=== PATIENT | male | born 1940 | race Caucasian/White ===

== ENCOUNTER 2016-11-21 15:19 | Outpatient (CLI) | payer MEDICARE | END 2016-11-21 15:20 | disposition home or self-care (01) | DX: E78.2 Mixed hyperlipidemia (principal); E11.9 Type 2 diabetes mellitus without complications; Z79.899 Other long term (current) drug therapy ==

== ENCOUNTER 2017-02-21 12:38 | Outpatient (CLI) | payer MEDICARE | END 2017-02-21 12:39 | disposition home or self-care (01) | LOC: LAB.R 12:38 | PROVIDERS: ATTEND Nurse Practitioner Primary Care | DX: I25.10 Atherosclerotic heart disease of native coronary artery without angina pectoris (principal) | CPT/HCPCS: 36415; 84484; 86140 ==

== ENCOUNTER 2017-02-26 07:03 | Outpatient (CLI) | payer MEDICARE ==
[2017-02-26 09:18] VITALS: BP 150/72
--- NOTE | 2017-02-26 11:28 | CARDIAC PROCEDURE NOTE ---
DATE OF SERVICE: 02/26/2017 00:00:00 PROCEDURE: Tereso protocol treadmill for echocardiographic left ventricular imaging. INDICATION: A 76-year-old male with recent exertional "gas" sensation in his chest. Known coronary di sease, 11 years post-complex stenting of the LAD and diagonal arteries. DESCRIPTION OF PROCEDURE: The patient was exercised in the standard fashion just shy of 9 minutes, we ll beyond predicted time of 6-1/2 minutes. He had sinus rhythm throughout the exercise with a rare PV C and an occasional PAC. During exercise, his EKG was noted to have some insignificant subtle T-wave changes. After a minute or 2 of recovery, he developed some ST segment depressions in the inferolater al leads, particularly in lead II. It was also during recovery after the echo images had been obtaine d that he developed this symptom of "gas" again. This resolved spontaneously and his EKG changes reso lved spontaneously. He did achieve just shy of his 85% maximum predicted heart rate and had a brisk b lood pressure response. IMPRESSION: Worrisome symptoms and EKG changes, both of which developed in recovery, in a patient who exercised well beyond predicted time, but who has a history of coronary disease. PLAN: We will await cardiac interpretation of his images; however, due to the constellation of his hi story, symptoms and EKG findings, a cardiac consult will be recommended. JOB #: [id number] EXT JOB #:[id number]
== END 2017-02-26 07:04 | disposition home or self-care (01) ==
LOC: DI 07:03
PROVIDERS: ATTEND Nurse Practitioner Primary Care
DX: I25.119 Atherosclerotic heart disease of native coronary artery with unspecified angina pectoris (principal); Z95.5 Presence of coronary angioplasty implant and graft
CPT/HCPCS: 93350

== ENCOUNTER 2017-07-21 08:00 | Outpatient (CLI) | payer MEDICARE ==
[2017-07-21 19:10] LABS: HEMOGLOBIN A1C 1.04 g/dL
== END 2017-07-21 08:01 | disposition home or self-care (01) ==
LOC: LAB.R 08:00
PROVIDERS: ATTEND Internal Medicine
DX: E11.9 Type 2 diabetes mellitus without complications (principal); Z79.899 Other long term (current) drug therapy
CPT/HCPCS: 83036

== ENCOUNTER 2017-11-24 08:15 | Outpatient (CLI) | payer MEDICARE ==
[2017-11-24 14:02] LABS: BASOPHILS % (AUTO) 0.7 %; EOSINOPHILS # (AUTO) 0.1 10^3/uL (0.0-0.7); EOSINOPHILS % (AUTO) 1.9 %; HGB - HEMOGLOBIN 14.4 g/dL (14.0-18.0); LYMPHOCYTES # (AUTO) 1.7 10^3/uL (1.5-3.5); LYMPHOCYTES % (AUTO) 33.7 %; MEAN CORPUSCULAR HEMOGLOBIN 29.9 pg (27.0-31.0); MEAN CORPUSCULAR VOLUME 87.9 fL (80.0-94.0); MEAN PLATELET VOLUME 8.2 fL (7.4-11.4); MONOCYTES # (AUTO) 0.4 10^3/uL (0.0-1.0); MONOCYTES % (AUTO) 7.9 %; NEUTROPHILS # (AUTO) 2.8 10^3/uL (1.5-6.6); NEUTROPHILS % (AUTO) 55.8 %; PLT - PLATELET COUNT 198 10^3/uL (130-450); RED BLOOD COUNT 4.81 10^6/uL (4.70-6.10); RED CELL DISTRIBUTION WIDTH 13.1 % (12.0-15.0); WHITE BLOOD COUNT 5.1 x10^3/uL (4.8-10.8)
[2017-11-24 14:21] LABS: ALBUMIN 4.3 g/dL (3.2-5.5); ALBUMIN/GLOBULIN RATIO 1.4 (1.0-2.2); ALKALINE PHOSPHATASE 46 IU/L (42-121); ALT ALANINE AMINOTRANSFERASE 20 IU/L (10-60); AST ASPARTATE AMINOTRANSFERASE 23 IU/L (10-42); BILIRUBIN,TOTAL 0.7 mg/dL (0.2-1.0); BUN - BLOOD UREA NITROGEN 25 mg/dL (6-20); CALCIUM 8.6 mg/dL (8.5-10.3); CARBON DIOXIDE - CO2 23 mmol/L (21-32); CHLORIDE 102 mmol/L (101-111); CHOL/HDL RATIO 4.7 (<5.0); CHOLESTEROL 164 mg/dL; CREATININE 1.1 mg/dL (0.6-1.2); GFR - MDRD 65 (>89); GLUCOSE 172 mg/dL (70-100); HDL CHOLESTEROL 35 mg/dL; LDL CHOLESTEROL,CALCULATED 76 mg/dL; LDL/HDL RATIO 2.2 (<3.6); SODIUM 134 mmol/L (135-145); TOTAL PROTEIN 7.3 g/dL (6.7-8.2); VLDL CHOLESTEROL 53 mg/dL
[2017-11-24 14:25] LABS: HB2 TOTAL 15.9 g/dL; HEMOGLOBIN A1C 1.11 g/dL; HEMOGLOBIN A1C % 8.5 % (4.6-6.2)
== END 2017-11-24 08:16 | disposition home or self-care (01) ==
LOC: LAB.R 08:15
PROVIDERS: ATTEND Internal Medicine
DX: E11.9 Type 2 diabetes mellitus without complications (principal); I25.10 Atherosclerotic heart disease of native coronary artery without angina pectoris; I10 Essential (primary) hypertension; Z79.899 Other long term (current) drug therapy
CPT/HCPCS: 80053; 80061; 83036; 83721; 85025

== ENCOUNTER 2018-03-18 11:07 | Outpatient (CLI) | payer MEDICARE ==
[2018-03-18 14:06] LABS: HEMOGLOBIN A1C 0.92 g/dL; HEMOGLOBIN A1C % 7.8 % (4.6-6.2)
== END 2018-03-18 11:08 | disposition home or self-care (01) ==
LOC: LAB.R 11:07
PROVIDERS: ATTEND Internal Medicine
DX: E11.9 Type 2 diabetes mellitus without complications (principal)
CPT/HCPCS: 83036

== ENCOUNTER 2018-05-10 02:15 | Emergency (ER) | payer MEDICARE ==
--- NOTE | 2018-05-10 02:25 | ED Physician Documentation ---
PD HPI URI - Stated complaint Stated Complaint: SWOLLEN THROAT - Chief complaint Chief Complaint: Heent - History obtained from History obtained from: Patient - History of Present Illness Timing - onset: How many hours ago (1), Today Timing duration: Hours (1) Timing details: Abrupt onset (awoke with feeling of swelling in throat and trouble breathing. Had some hoarseness of voice. It is easing some enroute. No prior similar. No new foods nor meds.) Associated symptoms: Other (no itching nor rash/hives). No: Fever, Sore throat , Dry cough, NVD Contributing factors: No: Sick contact, Travel, Immunocompromised Similar symptoms before: Has not had sx before Recently seen: Not recently seen Review of Systems Constitutional: denies: Fever Nose: denies: Rhinorrhea / runny nose, Congestion Throat: reports: Sore throat Cardiac: denies: Chest pain / pressure, Palpitations Respiratory: reports: Dyspnea. denies: Cough, Wheezing GI: denies: Nausea, Vomiting, Diarrhea Skin: denies: Rash, Lesions PD PAST MEDICAL HISTORY - Past Medical History Cardiovascular: Hypertension, High cholesterol, Coronary artery disease, Atrial fibrillation Endocrine/Autoimmune: Type 2 diabetes GI: GERD HEENT: Chronic hearing loss Musculoskeletal: Other - Past Surgical History Past Surgical History: Yes Ortho: Carpal Tunnel surgery Cardiovascular: Coronary stent Neuro: Other - Present Medications Home Medications: Ambulatory Orders Medication Instructions Recorded Confirmed Amiloride/Hydrochlorothiazide 0.5 tab PO DAILY 03/14/14 04/26/16 [Amiloride HCl-Hctz 5-50 mg Tab] Aspirin [Aspir 81] 81 mg PO DAILY 03/14/14 04/26/16 Lisinopril 5 mg PO BID 03/14/14 04/26/16 Metformin HCl 1,000 mg PO BID 03/14/14 04/26/16 Metoprolol Succinate [Toprol Xl] 25 mg PO BID 03/14/14 04/26/16 Omeprazole 20 mg PO DAILY 03/14/14 04/26/16 Rosuvastatin Calcium [Crestor] 5 mg PO 03/14/14 03/14/14 amLODIPine [Norvasc] 0 ORAL DAILY 04/26/16 Cetirizine [ZyrTEC] 10 mg PO DAILY #20 tablet 05/10/18 Dexamethasone [Decadron] 4 mg PO DAILY #5 tablet 05/10/18 Glimepiride 2 tab PO DAILY 05/10/18 05/10/18 Isosorbide Mononitrate [Isosorbide 30 mg PO DAILY 05/10/18 05/10/18 Mononitrate ER] - Allergies Allergies/Adverse Reactions: Allergies Allergy/AdvReac Type Severity Reaction Status Date / Time erythromycin base Allergy Intermediate Edema Verified 05/10/18 02:22 [Erythromycin Base] Sulfa (Sulfonamide Allergy Mild Nausea Verified 05/10/18 02:22 Antibiotics) - Social History Does the pt smoke?: No Smoking Status: Never smoker Does the pt drink ETOH?: No Does the pt have substance abuse?: No - Immunizations Immunizations are current?: No Immunizations: TDAP >10years/unknown - POLST Patient has POLST: Yes PD ED PE NORMAL - Vitals Vital signs reviewed: Yes - General General: Alert and oriented X 3, No acute distress, Well developed/nourished - HEENT HEENT: Ears normal. No: Pharynx benign (uvular edema without exudate. No adenopathy. ) - Neck Neck: Supple, no meningeal sign, No adenopathy - Cardiac Cardiac: RRR, No murmur - Respiratory Respiratory: Clear bilaterally - Abdomen Abdomen: Soft, Non tender - Derm Derm: Normal color, Warm and dry, No rash - Extremities Extremities: No tenderness to palpate, Normal ROM s pain, No edema, No calf tenderness / cord - Neuro Neuro: Alert and oriented X 3, No motor deficit, Normal speech Results - Vitals Vitals: Vital Signs - 24 hr 05/10/18 05/10/18 02:15 04:20 Temperature 36.9 C 36.1 C L Heart Rate 61 60 Respiratory 16 16 Rate Blood Pressure 173/88 H 165/77 H O2 Saturation 97 97 Oxygen O2 Source Room air - Labs Labs: Laboratory Tests 05/10/18 02:46 Group A Strep Rapid Negative PD MEDICAL DECISION MAKING - ED course Complexity details: re-evaluated patient (he had had decreasing symptoms on arrival to ER and continued to lessen, thus I did not stress his system with epi.), considered differential (some angioedema without obvious cause. He is on JT-I. ), d/w patient - Sepsis Event Vital Signs: Vital Signs - 24 hr 09/02/18 09/02/18 02:15 04:20 Temperature 36.9 C 36.1 C L Heart Rate 61 60 Respiratory 16 16 Rate Blood Pressure 173/88 H 165/77 H O2 Saturation 97 97 Oxygen O2 Source Room air Departure - Departure Disposition: 01 Home, Self Care Clinical Impression: Angioedema Qualifiers: Encounter type: initial encounter Qualified Code(s): T78.3XXA - Angioneurotic edema, initial encounter Condition: Stable Record reviewed to determine appropriate education?: Yes Instructions: ED Angioedema Follow-Up: Adis Galvez MD [Primary Care Provider] - Prescriptions: Cetirizine [ZyrTEC] 10 mg PO DAILY #20 tablet Dexamethasone [Decadron] 4 mg PO DAILY #5 tablet Comments: Use Decadron steroid daily for the next 5 days. Cetirizine antihistamine daily for the next week. It is unclear the cause of this and given that you do take lisinopril, this can be associated with the swelling that you have regardless of the duration that you have been on the medicine. Therefore would say to stop your lisinopril until you discuss further with your primary care. Recheck if not continuing to be improving over the next several days. Discharge Date/Time: 05/10/18 04:22
[2018-05-10] MEDS ORDERED: diphenhydrAMINE ELIXIR 25 MG/10 ML UDC PO STA (02:46)
[2018-05-10] MEDS ORDERED: DEXAMETHASONE 10 MG/ML VIAL PO STA (02:46)
[2018-05-10 04:22] VITALS: BP 165/77
== END 2018-05-10 04:22 | disposition home or self-care (01) ==
LOC: ED 02:15
DX: T78.3XXA Angioneurotic edema, initial encounter (principal); I10 Essential (primary) hypertension; I25.10 Atherosclerotic heart disease of native coronary artery without angina pectoris; E11.9 Type 2 diabetes mellitus without complications; E78.00 Pure hypercholesterolemia, unspecified; Z95.5 Presence of coronary angioplasty implant and graft; Z79.82 Long term (current) use of aspirin
CPT/HCPCS: 87070; 87430; 99283; A9270

== ENCOUNTER → 2018-07-06 | Outpatient (CLI) | payer MEDICARE ==
[2018-07-06 20:16] LABS: HB2 TOTAL 15.6 g/dL; HEMOGLOBIN A1C 1.04 g/dL; HEMOGLOBIN A1C % 8.3 % (4.6-6.2)
== END ==
LOC: LAB.R 13:40
PROVIDERS: ATTEND Internal Medicine
DX: E11.9 Type 2 diabetes mellitus without complications (principal)
CPT/HCPCS: 83036

== ENCOUNTER 2018-10-19 08:00 | Outpatient (CLI) | payer MEDICARE ==
[2018-10-19 13:41] LABS: HB2 TOTAL 16.8 g/dL; HEMOGLOBIN A1C 1.25 g/dL
== END 2018-10-19 23:59 | disposition home or self-care (01) ==
LOC: LAB.R 08:00
PROVIDERS: ATTEND Internal Medicine
DX: E11.9 Type 2 diabetes mellitus without complications (principal)
CPT/HCPCS: 83036

== ENCOUNTER 2018-12-15 10:09 | Outpatient (CLI) | payer MEDICARE ==
[2018-12-15 10:36] LABS: CREATININE 1.1 mg/dL (0.6-1.2)
[2018-12-15 10:39] LABS: HB2 TOTAL 15.9 g/dL; HEMOGLOBIN A1C 1.01 g/dL
== END 2018-12-15 10:10 | disposition home or self-care (01) ==
LOC: LAB 10:09
PROVIDERS: ATTEND Internal Medicine
DX: E11.65 Type 2 diabetes mellitus with hyperglycemia (principal)
CPT/HCPCS: 36415; 80048; 83036

== ENCOUNTER 2019-04-13 11:35 | Outpatient (CLI) | payer MEDICARE ==
[2019-04-13 12:17] LABS: CALCIUM 9.2 mg/dL (8.5-10.3); CREATININE 1.1 mg/dL (0.6-1.2)
[2019-04-13 12:27] LABS: HB2 TOTAL 15.6 g/dL; HEMOGLOBIN A1C 1.02 g/dL; HEMOGLOBIN A1C % 8.1 % (4.6-6.2)
== END 2019-04-13 11:36 | disposition home or self-care (01) ==
LOC: LAB 11:35
PROVIDERS: ATTEND Family Medicine
DX: I10 Essential (primary) hypertension (principal); E11.9 Type 2 diabetes mellitus without complications
CPT/HCPCS: 36415; 80048; 83036

== ENCOUNTER 2019-08-11 08:03 | Outpatient (CLI) | payer MEDICARE ==
[2019-08-11 12:16] LABS: BASOPHILS % (AUTO) 0.3 %; EOSINOPHILS # (AUTO) 0.1 10^3/uL (0.0-0.7); EOSINOPHILS % (AUTO) 1.7 %; HGB - HEMOGLOBIN 15.1 g/dL (14.0-18.0); LYMPHOCYTES # (AUTO) 2.2 10^3/uL (1.5-3.5); LYMPHOCYTES % (AUTO) 31.6 %; MEAN CORPUSCULAR VOLUME 88.1 fL (80.0-94.0); MEAN PLATELET VOLUME 10.6 fL (7.4-11.4); MONOCYTES # (AUTO) 0.5 10^3/uL (0.0-1.0); MONOCYTES % (AUTO) 7.5 %; NEUTROPHILS # (AUTO) 4.2 10^3/uL (1.5-6.6); NEUTROPHILS % (AUTO) 58.6 %; PLT - PLATELET COUNT 201 10^3/uL (130-450); RED CELL DISTRIBUTION WIDTH 12.9 % (12.0-15.0); WHITE BLOOD COUNT 7.1 x10^3/uL (4.8-10.8)
[2019-08-11 12:44] LABS: ALBUMIN 4.6 g/dL (3.2-5.5); ALBUMIN/GLOBULIN RATIO 1.5 (1.0-2.2); ALKALINE PHOSPHATASE 46 IU/L (42-121); ALT ALANINE AMINOTRANSFERASE 22 IU/L (10-60); AST ASPARTATE AMINOTRANSFERASE 27 IU/L (10-42); BILIRUBIN,TOTAL 0.8 mg/dL (0.2-1.0); BUN - BLOOD UREA NITROGEN 24 mg/dL (6-20); CALCIUM 8.9 mg/dL (8.5-10.3); CARBON DIOXIDE - CO2 24 mmol/L (21-32); CHLORIDE 105 mmol/L (101-111); CHOL/HDL RATIO 3.4 (<5.0); CHOLESTEROL 140 mg/dL; GFR - MDRD 72 (>89); GLUCOSE 157 mg/dL (70-100); HDL CHOLESTEROL 41 mg/dL; LDL CHOLESTEROL,CALCULATED 67 mg/dL; LDL/HDL RATIO 1.6 (<3.6); SODIUM 138 mmol/L (135-145); TOTAL PROTEIN 7.7 g/dL (6.7-8.2); VLDL CHOLESTEROL 32 mg/dL
[2019-08-11 12:50] LABS: HB2 TOTAL 15.6 g/dL; HEMOGLOBIN A1C 0.88 g/dL; HEMOGLOBIN A1C % 7.3 % (4.6-6.2)
== END 2019-08-11 23:59 ==
LOC: LAB.N 08:03
PROVIDERS: ATTEND Family Medicine
DX: E78.5 Hyperlipidemia, unspecified (principal); I10 Essential (primary) hypertension; I25.10 Atherosclerotic heart disease of native coronary artery without angina pectoris; K21.9 Gastro-esophageal reflux disease without esophagitis; E11.65 Type 2 diabetes mellitus with hyperglycemia
CPT/HCPCS: 36415; 80053; 80061; 83036; 83721; 84443; 85025

== ENCOUNTER 2020-01-05 10:35 | Outpatient (CLI) | payer MEDICARE ==
[2020-01-05 13:38] LABS: BASOPHILS % (AUTO) 0.4 %; EOSINOPHILS # (AUTO) 0.2 10^3/uL (0.0-0.7); EOSINOPHILS % (AUTO) 2.5 %; HGB - HEMOGLOBIN 14.7 g/dL (14.0-18.0); LYMPHOCYTES # (AUTO) 2.6 10^3/uL (1.5-3.5); LYMPHOCYTES % (AUTO) 33.6 %; MEAN CORPUSCULAR HEMOGLOBIN 30.9 pg (27.0-31.0); MEAN CORPUSCULAR HGB CONC 34.2 g/dL (32.0-36.0); MEAN CORPUSCULAR VOLUME 90.5 fL (80.0-94.0); MEAN PLATELET VOLUME 10.5 fL (7.4-11.4); MONOCYTES # (AUTO) 0.8 10^3/uL (0.0-1.0); MONOCYTES % (AUTO) 9.7 %; NEUTROPHILS # (AUTO) 4.1 10^3/uL (1.5-6.6); NEUTROPHILS % (AUTO) 53.4 %; PLT - PLATELET COUNT 207 10^3/uL (130-450); RED BLOOD COUNT 4.75 10^6/uL (4.70-6.10); RED CELL DISTRIBUTION WIDTH 12.4 % (12.0-15.0); WHITE BLOOD COUNT 7.7 x10^3/uL (4.8-10.8)
[2020-01-05 14:10] LABS: ALBUMIN 4.3 g/dL (3.2-5.5); ALBUMIN/GLOBULIN RATIO 1.4 (1.0-2.2); BILIRUBIN,TOTAL 0.6 mg/dL (0.2-1.0); CALCIUM 8.9 mg/dL (8.5-10.3); CREATININE 1.2 mg/dL (0.6-1.2); TOTAL PROTEIN 7.4 g/dL (6.7-8.2)
[2020-01-05 14:15] LABS: HB2 TOTAL 14.9 g/dL; HEMOGLOBIN A1C 0.87 g/dL; HEMOGLOBIN A1C % 7.5 % (4.6-6.2)
== END 2020-01-05 23:59 | disposition home or self-care (01) ==
LOC: LAB.WCP 10:35
PROVIDERS: ATTEND Family Medicine
DX: K31.84 Gastroparesis (principal); K21.9 Gastro-esophageal reflux disease without esophagitis; E11.65 Type 2 diabetes mellitus with hyperglycemia; I10 Essential (primary) hypertension
CPT/HCPCS: 36415; 80053; 83036; 85025

== ENCOUNTER 2020-01-07 06:44 | Outpatient (CLI) | payer MEDICARE ==
--- NOTE | 2020-01-07 09:49 | Ultrasound Report ---
Reason: GASTROPARESIS, GERD, DM Procedure Date: 01/07/2020 Accession Number: [id number] / [id number] Procedure: US - Abdomen Limited CPT Code: Final Report FULL RESULT: EXAM: ABDOMEN ULTRASOUND LIMITED, RUQ EXAM DATE: 01/07/2020 07:25 AM. CLINICAL HISTORY: Gastroparesis, gastroesophageal reflux disease, diabetes. COMPARISON: None. TECHNIQUE: Real-time scanning was performed with static images obtained. FINDINGS: Liver: The liver is moderately echogenic diffusely with some focal fatty sparing near the gallbladder fossa. No focal masses, enlargement or abnormal blood flow. The right lobe measures 17.2 cm. Main portal vein flow: Hepatopetal. Gallbladder: Normal. No stones, wall thickening, or sonographic Garland's sign. Biliary System: CBD measures 4 mm. No intrahepatic or extrahepatic ductal dilatation. Other: The pancreas was obscured by bowel gas. No ascites. The right kidney measures 10.9 cm and shows no hydronephrosis or calculi. IMPRESSION: 1. Moderately fatty infiltrated liver. 2. Normal gallbladder. RADIA
== END 2020-01-07 06:45 | disposition home or self-care (01) ==
LOC: DI 06:44
PROVIDERS: ATTEND Family Medicine
DX: K76.0 Fatty (change of) liver, not elsewhere classified (principal)
CPT/HCPCS: 76705

== ENCOUNTER 2020-05-17 08:00 | Outpatient (CLI) | payer MEDICARE ==
[2020-05-17 18:26] LABS: CALCIUM 9.1 mg/dL (8.5-10.3); CREATININE 1.2 mg/dL (0.6-1.2)
[2020-05-17 20:14] LABS: HEMOGLOBIN A1c% 7.9 % (4.27-6.07)
== END 2020-05-17 23:59 | disposition home or self-care (01) ==
LOC: LAB.WCP 08:00
PROVIDERS: ATTEND Family Medicine
DX: E11.65 Type 2 diabetes mellitus with hyperglycemia (principal); I10 Essential (primary) hypertension
CPT/HCPCS: 36415; 80048; 83036

== ENCOUNTER 2020-09-29 08:00 | Outpatient (CLI) | payer MEDICARE | END 2020-09-29 23:59 | disposition home or self-care (01) | LOC: LAB.R 08:00 | PROVIDERS: ATTEND Family Medicine | DX: R50.9 Fever, unspecified (principal); Z20.822 Contact with and (suspected) exposure to COVID-19 | CPT/HCPCS: 87275; 87276; U0004 ==

== ENCOUNTER 2020-09-29 14:43 | Outpatient (CLI) | payer MEDICARE | END 2020-09-29 14:44 | disposition home or self-care (01) | LOC: COV 14:43 | PROVIDERS: ATTEND Family Medicine | DX: R50.9 Fever, unspecified (principal); R05 Cough; M79.10 Myalgia, unspecified site; R53.83 Other fatigue; R09.81 Nasal congestion; Z20.822 Contact with and (suspected) exposure to COVID-19 ==

== ENCOUNTER 2020-09-30 08:00 | Outpatient (CLI) | payer MEDICARE | END 2020-09-30 08:01 | disposition home or self-care (01) | LOC: LAB.R 08:00 | PROVIDERS: ATTEND Family Medicine | DX: R50.9 Fever, unspecified (principal) | CPT/HCPCS: 87086 ==

== ENCOUNTER 2020-10-03 08:19 | Inpatient (IN) | payer MEDICARE ==
[2020-10-03] MEDS ORDERED: SODIUM CHLORIDE 0.9% 1,000 ML IV STA ×2 (08:50→09:50)
--- NOTE | 2020-10-03 08:53 | ED Physician Documentation ---
PD HPI URI - Stated complaint Stated Complaint: SOA,FEVER, -COVID OF YESTERDAY - Chief complaint Chief Complaint: Resp - History obtained from History obtained from: Patient - History of Present Illness Timing - onset: How many months ago (1) Timing duration: Months (1) Timing details: Gradual onset, Still present Associated symptoms: Fever, Nasal congestion, Productive cough. No: Bilateral edema, Unilateral edema Contributing factors: No: Sick contact, Travel, COPD / asthma Improves by: Rest Worsened by: Activity, Breathing Similar symptoms before: Has not had sx before Recently seen: Surgery - Additional information Additional information: 80 y/o male with replacement of stents one month ago has developed dyspena shortly after the procedure he believes started with Brelintzia. He has subsequentlly developed a cough about one week ago and has started to bring up some blood about 3 days ago. He has developed a fever about one week ago and he has had 2 negative covid tests done this week. Review of Systems Constitutional: reports: Fever Eyes: denies: Decreased vision Ears: denies: Ear pain Nose: reports: Congestion. denies: Rhinorrhea / runny nose Throat: denies: Sore throat Cardiac: denies: Chest pain / pressure, Palpitations, Pedal edema, Calf pain Respiratory: reports: Dyspnea, Cough, Hemoptysis. denies: Wheezing GI: denies: Abdominal Pain, Nausea, Vomiting, Constipation, Diarrhea : denies: Dysuria, Frequency Skin: denies: Rash Musculoskeletal: denies: Neck pain, Back pain, Extremity pain Neurologic: denies: Generalized weakness, Focal weakness, Numbness PD PAST MEDICAL HISTORY - Past Medical History Cardiovascular: Hypertension, High cholesterol, Coronary artery disease, Atrial fibrillation Endocrine/Autoimmune: Type 2 diabetes GI: GERD HEENT: Chronic hearing loss Musculoskeletal: Osteoarthritis, Other - Past Surgical History Past Surgical History: Yes Ortho: Carpal Tunnel surgery Cardiovascular: Coronary stent Neuro: Other - Present Medications Home Medications: Ambulatory Orders Medication Instructions Recorded Confirmed Aspirin [Aspir 81] 81 mg PO DAILY 03/14/14 11/06/18 Metformin HCl 500 mg PO BID 03/14/14 11/06/18 Omeprazole 40 mg PO DAILY 03/14/14 11/06/18 Rosuvastatin Calcium [Crestor] 5 mg PO UD 03/14/14 11/06/18 amLODIPine [Norvasc] 2.5 mg ORAL DAILY 04/26/16 11/06/18 Glimepiride 2 tab DAILY 05/10/18 11/06/18 Isosorbide Mononitrate [Isosorbide 30 mg PO DAILY 05/10/18 11/06/18 Mononitrate ER] Amiloride HCl 2.5 mg PO DAILY 11/06/18 11/06/18 Cholecalciferol (Vitamin D3) 1,000 unit PO DAILY 11/06/18 11/06/18 [Vitamin D3] Flaxseed Oil 1,000 mg PO DAILY 11/06/18 11/06/18 Fluticasone [Flonase] 1 sprays ALEN BID 11/06/18 11/06/18 Loratadine [Claritin] 10 mg PO DAILY 11/06/18 11/06/18 Metoprolol Tartrate 25 mg PO BID 11/06/18 11/06/18 Multivitamin [Theragran] 1 each PO DAILY 11/06/18 11/06/18 - Allergies Allergies/Adverse Reactions: Allergies Allergy/AdvReac Type Severity Reaction Status Date / Time JT Inhibitors Allergy Severe Unknown Verified 10/03/20 08:31 amoxicillin [From Augmentin] Allergy Severe Unknown Verified 10/03/20 08:31 clavulanic acid Allergy Severe Unknown Verified 10/03/20 08:31 [From Augmentin] citalopram Allergy Intermediate Unknown Verified 10/03/20 08:31 erythromycin base Allergy Intermediate Edema Verified 10/03/20 08:31 [Erythromycin Base] hydrochlorothiazide Allergy Mild Unknown Verified 10/03/20 08:31 Lmavdts-Xxt-Eqp Reductase Allergy Mild Unknown Verified 10/03/20 08:31 Inhibitor Sulfa (Sulfonamide Allergy Mild Nausea Verified 10/03/20 08:31 Antibiotics) - Social History Does the pt smoke?: No Smoking Status: Never smoker Does the pt drink ETOH?: No Does the pt have substance abuse?: No - Immunizations Immunizations are current?: No Immunizations: TDAP >10years/unknown - POLST Patient has POLST: Yes PD ED PE NORMAL - Vitals Vital signs reviewed: Yes (hypertension) - General General: Alert and oriented X 3, No acute distress, Well developed/nourished - HEENT HEENT: Atraumatic, PERRL, EOMI, Ears normal, Other (dry mucous membranes ) - Neck Neck: Supple, no meningeal sign, No bony TTP - Cardiac Cardiac: No murmur, Other (tachy to 100) - Respiratory Respiratory: Other (tachypneic at rest without wheeze or rhonchi appreciated. ) - Abdomen Abdomen: Soft, Non tender, Other (protruberant ) - Back Back: No CVA TTP, No spinal TTP - Derm Derm: Normal color, Warm and dry, No rash - Extremities Extremities: No deformity, No edema - Neuro Neuro: Alert and oriented X 3, date night caregiver 2-12 intact, No motor deficit, No sensory deficit, Normal speech Eye Opening: Spontaneous Motor: Obeys Commands Verbal: Oriented GCS Score: 15 - Psych Psych: Normal mood, Normal affect Results - Vitals Vitals: Vital Signs - 24 hr 10/03/20 10/03/20 10/03/20 08:22 10:30 11:27 Temperature 37.1 C Heart Rate 97 103 H 103 H Respiratory 22 27 H 17 Rate Blood Pressure 141/80 H 154/91 H 143/78 H O2 Saturation 93 96 94 Oxygen O2 Source Room air - EKG (time done) 900 Rate: Rate (enter#) (93) Rhythm: LAE, Other (PVC's) Intervals: Prolonged MN (borderline) QRS: LVH (with strain) Ischemia: Q waves (inferior ) Compare to prior EKG: Old EKG unavailable Computer interpretation: Agree with computer 1035 Rate: Rate (enter#) (111) Rhythm: Sinus tachycardia, LAE [place]: LAD QRS: LVH (with strain) Compare to prior EKG: Changed from prior EKG (SPT done earlier today the lead placement has changed slightly ) Computer interpretation: Agree with computer - Labs Labs: Laboratory Tests 10/03/20 10/03/20 10/03/20 08:50 08:50 08:50 WBC 10.6 RBC 4.77 Hgb 14.0 Hct 42.1 MCV 88.3 MCH 29.4 MCHC 33.3 RDW 13.2 Plt Count 194 MPV 9.9 Neut # (Auto) 9.2 H Lymph # (Auto) 0.7 L Dickson # (Auto) 0.6 Eos # (Auto) 0.1 Baso # (Auto) 0.0 Absolute Nucleated RBC 0.00 Nucleated RBC % 0.0 Sodium 132 L Potassium 4.0 Chloride 98 L Carbon Dioxide 19 L Anion Gap 15.0 H BUN 45 H Creatinine 1.6 H Estimated GFR (MDRD) 42 L Glucose 278 H Lactic Acid 3.2 H* Calcium 8.7 Total Bilirubin 0.6 AST 36 ALT 24 Alkaline Phosphatase 65 Troponin I High Sens Total Protein 7.4 Albumin 3.7 Globulin 3.7 Albumin/Globulin Ratio 1.0 Lipase 25 Urine Color Urine Clarity Urine pH Ur Specific Hankins Urine Protein Urine Glucose (UA) Urine Ketones Urine Occult Blood Urine Nitrite Urine Bilirubin Urine Urobilinogen Ur Leukocyte Esterase Urine RBC Urine WBC Ur Squamous Epith Cells Urine Bacteria Urine Casts Urine Mucus Ur Microscopic Review Urine Culture Comments Nasal Adenovirus (PCR) Nasal B. parapertussis DNA (PCR) Nasal Coronavir 229E PCR Nasal Coronavir HKU1 PCR Nasal Coronavir NL63 PCR Nasal Coronavir OC43 PCR Nasal Enterovir/Rhinovir PCR Nasal Influenza B PCR Nasal Influenza A PCR Nasal Parainfluen 1 PCR Nasal Parainfluen 2 PCR Nasal Parainfluen 3 PCR Nasal Parainfluen 4 PCR Nasal RSV (PCR) Nasal B.pertussis DNA PCR Nasal C.pneumoniae (PCR) Alen Human Metapneumo PCR Nasal M.pneumoniae (PCR) Nasal SARS-CoV-2 (PCR) Blood Type Blood Type Recheck Antibody Screen 10/03/20 10/03/20 10/03/20 08:50 09:00 09:30 WBC RBC Hgb Hct MCV MCH MCHC RDW Plt Count MPV Neut # (Auto) Lymph # (Auto) Dickson # (Auto) Eos # (Auto) Baso # (Auto) Absolute Nucleated RBC Nucleated RBC % Sodium Potassium Chloride Carbon Dioxide Anion Gap BUN Creatinine Estimated GFR (MDRD) Glucose Lactic Acid Calcium Total Bilirubin AST ALT Alkaline Phosphatase Troponin I High Sens 28.1 H* Total Protein Albumin Globulin Albumin/Globulin Ratio Lipase Urine Color Urine Clarity Urine pH Ur Specific Hankins Urine Protein Urine Glucose (UA) Urine Ketones Urine Occult Blood Urine Nitrite Urine Bilirubin Urine Urobilinogen Ur Leukocyte Esterase Urine RBC Urine WBC Ur Squamous Epith Cells Urine Bacteria Urine Casts Urine Mucus Ur Microscopic Review Urine Culture Comments Nasal Adenovirus (PCR) Nasal B. parapertussis DNA (PCR) Nasal Coronavir 229E PCR Nasal Coronavir HKU1 PCR Nasal Coronavir NL63 PCR Nasal Coronavir OC43 PCR Nasal Enterovir/Rhinovir PCR Nasal Influenza B PCR Nasal Influenza A PCR Nasal Parainfluen 1 PCR Nasal Parainfluen 2 PCR Nasal Parainfluen 3 PCR Nasal Parainfluen 4 PCR Nasal RSV (PCR) Nasal B.pertussis DNA PCR Nasal C.pneumoniae (PCR) Alen Human Metapneumo PCR Nasal M.pneumoniae (PCR) Nasal SARS-CoV-2 (PCR) Blood Type A POSITIVE Blood Type Recheck A POSITIVE Antibody Screen NEGATIVE 10/03/20 10/03/20 10/03/20 09:30 09:41 10:59 WBC RBC Hgb Hct MCV MCH MCHC RDW Plt Count MPV Neut # (Auto) Lymph # (Auto) Dickson # (Auto) Eos # (Auto) Baso # (Auto) Absolute Nucleated RBC Nucleated RBC % Sodium Potassium Chloride Carbon Dioxide Anion Gap BUN Creatinine Estimated GFR (MDRD) Glucose Lactic Acid Calcium Total Bilirubin AST ALT Alkaline Phosphatase Troponin I High Sens 33.5 H* Total Protein Albumin Globulin Albumin/Globulin Ratio Lipase Urine Color DARK YELLOW Urine Clarity CLEAR Urine pH 5.5 Ur Specific Hankins 1.025 Urine Protein 30 H Urine Glucose (UA) 500 H Urine Ketones NEGATIVE Urine Occult Blood SMALL H Urine Nitrite NEGATIVE Urine Bilirubin NEGATIVE Urine Urobilinogen 0.2 (NORMAL) Ur Leukocyte Esterase NEGATIVE Urine RBC 0-5 Urine WBC 0-3 Ur Squamous Epith Cells NONE SEEN Urine Bacteria Rare Urine Casts 0-2 Fine Granular Urine Mucus Few Strands Ur Microscopic Review INDICATED Urine Culture Comments NOT INDICATED Nasal Adenovirus (PCR) NOT DETECTED Nasal B. parapertussis DNA (PCR) NOT DETECTED Nasal Coronavir 229E PCR NOT DETECTED Nasal Coronavir HKU1 PCR NOT DETECTED Nasal Coronavir NL63 PCR NOT DETECTED Nasal Coronavir OC43 PCR NOT DETECTED Nasal Enterovir/Rhinovir PCR NOT DETECTED Nasal Influenza B PCR NOT DETECTED Nasal Influenza A PCR NOT DETECTED Nasal Parainfluen 1 PCR NOT DETECTED Nasal Parainfluen 2 PCR NOT DETECTED Nasal Parainfluen 3 PCR NOT DETECTED Nasal Parainfluen 4 PCR NOT DETECTED Nasal RSV (PCR) NOT DETECTED Nasal B.pertussis DNA PCR NOT DETECTED Nasal C.pneumoniae (PCR) NOT DETECTED Alen Human Metapneumo PCR NOT DETECTED Nasal M.pneumoniae (PCR) NOT DETECTED Nasal SARS-CoV-2 (PCR) NOT DETECTED Blood Type Blood Type Recheck Antibody Screen - Rads (name of study) chest Radiology: Prelim report reviewed (Impression: One. Large pneumonia in the left lung. Cannot exclude underlying central mass.), EMP read indepedently, See rad report chest CT Radiology: Prelim report reviewed (Impression: 1. Dense pneumonia, left upper lobe. Shotty mediastinal adenopathy and right hilar adenopathy. No abnormal lymph nodes by size criteria. This may potentially represent reactive inflammatory adenopathy), EMP read indepedently, See rad report Procedures - IVC sono (time) 0831 Bedside IVC sono: IVC measures (cm) (0.88), Dehydration (est 2 liter deficit.) PD MEDICAL DECISION MAKING - ED course Complexity details: reviewed old records, reviewed results, re-evaluated patient, considered differential, d/w patient, d/w wealth management consultant (Case is discussed with Dr. Geiger , hospital here today graciously acceptds the patient for admission.) ED course: 80-year-old male presents to the emergency department with low-grade fever by history a cough and tachypnea he presents tachypneic and dehydrated. He does have a history of diabetes and has polyuria polydipsia. He has had 2 - Covid test. On physical examination he has no obvious areas of inflammation and has good air movement without focal wheeze or rhonchi. He is dehydrated on interrogation of the IVC and there is a large infiltrate in the left lung that I can only hear listening anteriorly and only after I knew the infiltrate was there. Because of the density of the infiltrate a CT was obtained to rule out a mass and none is seen. When he returns from the CT scan he develops severe sharp pain on the left side and he is administered IV toradal without much help and he is subsequently administered IV decadron and then IV dilaudid. He has some improvement in his pain with the dilaudid. The pain in the chest is worse with inspiration. He has been in the hospital in the past month and symptoms began in the hospital and I am treating this as a hospital acquired pneumonia and the patient is given IV vanco and cefepime. A second trop is obtained. Departure - Departure Disposition: [facility] DC/Xfer Clinical Impression: Pneumonia Qualifiers: Pneumonia type: due to unspecified organism Laterality: left Lung location: lower lobe of lung Qualified Code(s): J18.9 - Pneumonia, unspecified organism Chest pain Qualifiers: Chest pain type: chest pain on breathing Qualified Code(s): R07.1 - Chest pain on breathing; R07.81 - Pleurodynia Condition: Stable
[2020-10-03 09:12] LABS: BASOPHILS % (AUTO) 0.2 %; EOSINOPHILS # (AUTO) 0.1 10^3/uL (0.0-0.7); EOSINOPHILS % (AUTO) 0.5 %; LYMPHOCYTES # (AUTO) 0.7 10^3/uL (1.5-3.5); LYMPHOCYTES % (AUTO) 6.3 %; MEAN CORPUSCULAR HEMOGLOBIN 29.4 pg (27.0-31.0); MEAN CORPUSCULAR HGB CONC 33.3 g/dL (32.0-36.0); MEAN CORPUSCULAR VOLUME 88.3 fL (80.0-94.0); MEAN PLATELET VOLUME 9.9 fL (7.4-11.4); MONOCYTES # (AUTO) 0.6 10^3/uL (0.0-1.0); NEUTROPHILS # (AUTO) 9.2 10^3/uL (1.5-6.6); NEUTROPHILS % (AUTO) 86.4 %; PLT - PLATELET COUNT 194 10^3/uL (130-450); RED BLOOD COUNT 4.77 10^6/uL (4.70-6.10); RED CELL DISTRIBUTION WIDTH 13.2 % (12.0-15.0); WHITE BLOOD COUNT 10.6 x10^3/uL (4.8-10.8)
[2020-10-03 09:24] LABS: ALBUMIN 3.7 g/dL (3.2-5.5); BILIRUBIN,TOTAL 0.6 mg/dL (0.2-1.0); CALCIUM 8.7 mg/dL (8.5-10.3); CREATININE 1.6 mg/dL (0.6-1.2); TOTAL PROTEIN 7.4 g/dL (6.7-8.2)
--- NOTE | 2020-10-03 09:27 | XRAY Report ---
PROCEDURE: Chest 2 View X-Ray INDICATIONS: soa TECHNIQUE: 2 view(s) of the chest. COMPARISON: None. FINDINGS: Surgical changes and devices: None. Lungs and pleura: There is a large area of consolidation in the left mid and lower lung field. An und erlying obstructive mass is not excluded. Mediastinum: Mediastinal contours are normal. Heart size is normal. Bones and chest wall: No suspicious bony abnormalities. Soft tissues appear unremarkable. IMPRESSION: 1. Large pneumonia in the left lung. 2. Cannot exclude underlying central mass. Comment: Consider CT chest with contrast for further evaluation. Reviewed by: Raman Hua MD on 10/03/2020 9:26 AM [facility] Approved by: Raman Hua MD on 10/03/2020 9:26 AM [facility] Station ID: [id number]
[2020-10-03] MEDS ORDERED: IOVERSOL 320 100 ML VIAL IVP ONE (09:42)
[2020-10-03 09:44] LABS: BILIRUBIN,URINE NEGATIVE (NEGATIVE); GLUCOSE, URINE (UA) 500 mg/dL (NEGATIVE); KETONES,URINE (UA) NEGATIVE (NEGATIVE); LEUKOCYTE ESTERASE, URINE NEGATIVE (NEGATIVE); NITRITE,URINE NEGATIVE (NEGATIVE); OCCULT BLOOD,URINE SMALL (NEGATIVE); PH,URINE 5.5 PH (5.0-7.5); PROTEIN,URINE 30 mg/dL (NEGATIVE); UROBILINOGEN,URINE 0.2 (NORMAL) E.U./dL (NORMAL)
[2020-10-03 09:52] LABS: CLARITY,URINE CLEAR (CLEAR)
[2020-10-03] MEDS ORDERED: VANCOMYCIN INJ 2 GM in SODIUM CHLORIDE 0.9% 500 ML IV STA (09:52)
[2020-10-03] MEDS ORDERED: CEFEPIME 2 GM in SODIUM CHLORIDE 0.9% MINIBAG 100 ML IV STA (09:52)
[2020-10-03 10:09] LABS: BACTERIA,URINE Rare /HPF (None Seen); CASTS, URINE 0-2 Fine Granular /LPF; MUCUS,URINE Few Strands; RBC,URINE 0-5 /HPF (0-5); SQUAMOUS EPITHELIAL CELL,UR NONE SEEN (<= Few)
--- NOTE | 2020-10-03 10:33 | CT Report ---
PROCEDURE: CHEST W INDICATIONS: L lung mass CONTRAST: IV CONTRAST: Optiray 320 ml: 100 PO CONTRAST: *NO PO CONTRAST TECHNIQUE: After the administration of intravenous contrast, 5 mm thick sections acquired from the pulmonary api candice to the posterior costophrenic angles. 7 mm thick coronal MIP reformats were acquired. For radia tion dose reduction, the following was used: automated exposure control, adjustment of mA and/or kV according to patient size. COMPARISON: None. FINDINGS: Image quality: Excellent. Lungs and pleura: Dense pneumonia, left upper lobe. 2 mm nonspecific pulmonary nodule, left lower lob e, image 192/4. No pleural effusions or pneumothorax. Central and peripheral airways are patent and normal in caliber. Mediastinum: Heart size is normal. No pericardial effusion. LAD coronary stent. No mediastinal or h ilar adenopathy by size criteria. Mildly prominent AP window lymph node, measuring 1.5 cm in diameter . Prominent right hilar lymph nodes, including a 1.6 cm node on image 25/3. Small shotty subcarinal l ymph nodes. Shotty right paratracheal lymph nodes. Thoracic aorta and central pulmonary arteries are normal in size. Esophagus is normal in caliber. Small hiatal hernia. Bones and chest wall: No suspicious bony lesions. No vertebral body compression fractures. No axil bernice or supraclavicular adenopathy by size criteria. Thyroid gland is unremarkable as visualized.. Abdomen: Mild hepatic steatosis. IMPRESSION: 1. Dense pneumonia, left upper lobe. 2. Shotty mediastinal adenopathy and right hilar adenopathy. No abnormal lymph nodes by size criteria . This may potentially represent reactive inflammatory adenopathy. Progress films are recommended until clear. Reviewed by: Raman Hua MD on 10/03/2020 10:32 AM [facility] Approved by: Raman Hua MD on 10/03/2020 10:32 AM PST Station ID: [id number]
[2020-10-03] MEDS ORDERED: KETOROLAC 30 MG/ML VIAL IVP STA (10:35)
[2020-10-03 10:41] LABS: C. PNEUMONIAE- RESP PCR PANEL NOT DETECTED
[2020-10-03] MEDS ORDERED: DEXAMETHASONE 10 MG/ML VIAL IVP STA (10:44)
[2020-10-03] MEDS ORDERED: HYDROmorphone 1 MG/ML CARPUJECT IVP STA ×2 (10:58→12:06)
[2020-10-03] MEDS ORDERED: ONDANSETRON 4 MG/2 ML VIAL IVP STA (10:58)
[2020-10-03] MEDS ORDERED: ONDANSETRON 4 MG/2 ML VIAL IVP PRN (12:25)
[2020-10-03] MEDS ORDERED: oxyCODONE 5 MG TABLET PO PRN (12:29)
[2020-10-03] MEDS ORDERED: SODIUM CHLORIDE 0.9% 1,000 ML IV SCH (13:00)
[2020-10-03] MEDS ORDERED: AZITHROMYCIN INJ 500 MG in SODIUM CHLORIDE 0.9% 250 ML IV SCH (13:00)
[2020-10-03] MEDS: ASPIRIN CHEW 81 MG TABLET PO SCH (13:19)
[2020-10-03] MEDS: METOPROLOL TARTRATE 25 MG TABLET PO SCH ×2 (13:19→20:45)
[2020-10-03] MEDS: IOVERSOL 320 100 ML VIAL IVP ONE (13:34)
--- NOTE | 2020-10-03 15:24 | PHARMACY PROGRESS NOTE ---
- Best Possible Medication History Admit Date and Time: 10/03/20 1225 Processed by: Pharmacy Medication History completed: Yes Patient Interview: Completed Secondary Source(s): Physician records (PATIENT INTERVIEWED BY PHARMACY. PATIENT ABLE TO CONFIRM HOME MEDICATIONS. PATIENT IN PROCESS OF TRANSITIONING FROM [facility] TO [facility]. ), Pharmacy records, Insurance records As the person ultimately responsible for medication therapy, providers are able to order a medication from an existing home medication list in [facility] via the "Reconcile Routine" prior to Confirmation of that medication by passport support associate. Such practice is discouraged except when the physician, in their clinical judgment, deems that a medical need exists for a medication without regard to previous use.
[2020-10-03] MEDS: INSULIN ASPART 300 UNIT/3 ML PEN SUBQ SCH ×2 (17:05→20:46)
[2020-10-03] MEDS: SODIUM CHLORIDE FLUSH 0.9% 10 ML SYRINGE IVP SCH (17:06)
--- NOTE | 2020-10-03 17:17 | HISTORY & PHYSICAL EXAMINATION ---
Chief Complaint - Chief Complaint Chief Complaint: SOB History of Present Illness - Admitted From Admitted From:: ER - History Obtained From Records Reviewed: [facility] History obtained from: pt Exam Limitations: no - History of Present Illness HPI Comment/Other: This is a 80 years old male with a past medical history significant for hypertension, hyperlipidemia, CAD, recently heart stent, diabetic 2, GERD, chronic hearing loss, osteoarthritis Who present to ER complain fever and shortness breathing. Patient report she has fever at home for 7 to 8 days, highest fever temperature is 101. he also develop shortness of breathing, he denies any chest pain. He had 5 times of COVID-19 test which were negative. Patient reported he had stent which was put on a months ago. Patient reported he called his information technology director Dr. Manish Mclain, He agreed Patient's Brilinta may be Switched to Plavix. Patient report in the ER after he finish image study, He was told he has possible mass in the chest xray. he had a panic attack he feel sharp chest pain at 10/10 but the pain running away after he was given pain medication. He has no any more chest pain. In ER, patient is afebrile,Tachypnea and slightly tachycardia. Routine laboratory tests show patient had elevated lactic acid 3.2, Elevated creatinine 1.6, patient has baseline creatinine 1.2, Glucose 278, elevated anion gap 15, Slightly elevated troponin, but CRP was 38.Chest x-ray show large pneumonia in the left lung, CT of the chest show dense pneumonia at left upper lobe. Given above medical condition patient was asked for admission. Discussed the care goal with the patient, patient request full code History - Past Medical History Cardiovascular: reports: Hypertension, High cholesterol, Coronary artery disease, Atrial fibrillation Endocrine/Autoimmune: reports: Type 2 diabetes GI: reports: GERD HEENT: reports: Chronic hearing loss Musculoskeletal: reports: Osteoarthritis, Other MRSA Hx?: No - Past Surgical History Ortho: reports: Carpal Tunnel surgery Cardiovascular: reports: Coronary stent Neuro: reports: Other - Family & Social History Family History: Mother: , Father: Family History Comment/Other: Patient report his father at the age 94 from heart attack, Her mother from heart attack with stroke at the age 70. Social History Notes: Patient denies history of cigarette smoking, alcohol abusive, drug abusive, patient is living with his in [facility] with his 3 kids - POLST Patient has POLST: Yes Meds/Allgy - Home Medications Home Medications: Ambulatory Orders Medication Instructions Recorded Confirmed Aspirin [Aspir 81] 81 mg PO DAILY 03/14/14 10/03/20 Metformin HCl 1,000 mg PO BID 03/14/14 10/03/20 Rosuvastatin Calcium [Crestor] 5 mg PO QPM 03/14/14 10/03/20 amLODIPine [Norvasc] 2.5 mg ORAL BID 04/26/16 10/03/20 Glimepiride 4 mg BID 05/10/18 10/03/20 Isosorbide Mononitrate [Isosorbide 30 mg PO DAILY 05/10/18 10/03/20 Mononitrate ER] Amiloride HCl 2.5 mg PO DAILY 11/06/18 10/03/20 Flaxseed Oil 1,000 mg PO DAILY 11/06/18 10/03/20 Metoprolol Tartrate 25 mg PO BID 11/06/18 10/03/20 Multivitamin [Theragran] 1 each PO DAILY 11/06/18 10/03/20 Clopidogrel [Plavix] 75 mg PO DAILY 10/03/20 10/03/20 Loratadine [Claritin] 10 mg PO DAILY 10/03/20 10/03/20 Pantoprazole [Protonix] 40 mg PO DAILY 10/03/20 10/03/20 Propylhexedrine [Benzedrex] 1 inh ALEN PRN PRN 10/03/20 10/03/20 - Allergies Allergies/Adverse Reactions: Allergies Allergy/AdvReac Type Severity Reaction Status Date / Time JT Inhibitors Allergy Severe Unknown Verified 10/03/20 08:31 amoxicillin [From Augmentin] Allergy Severe Unknown Verified 10/03/20 08:31 clavulanic acid Allergy Severe Unknown Verified 10/03/20 08:31 [From Augmentin] citalopram Allergy Intermediate Unknown Verified 10/03/20 08:31 erythromycin base Allergy Intermediate Edema Verified 10/03/20 08:31 [Erythromycin Base] hydrochlorothiazide Allergy Mild Unknown Verified 10/03/20 08:31 Gjotqgi-Thc-Gal Reductase Allergy Mild Unknown Verified 10/03/20 08:31 Inhibitor Sulfa (Sulfonamide Allergy Mild Nausea Verified 10/03/20 08:31 Antibiotics) Review of Systems - Constitutional Constitutional: reports: Fever. denies: Fatigue, Chills, Malaise, Weakness, Poor appetite, Diaphoresis - Eyes Eyes: denies: Pain, Blurred vision, Field loss, Vision loss - Ears, Nose & Throat Ears, Nose & Throat: denies: Ear pain, Hearing aids, Nosebleeds, Bleeding gums - Cardiovascular Cariovascular: reports: Exertional dyspnea, Decr. exercise tolerance. denies: Irregular heart rate, Palpitations, Chest pain, Edema, Lightheadedness, Syncope - Respiratory Respiratory: reports: Cough, Sputum production, SOB with exertion. denies: Wheezing, Snoring, Hemoptysis, Orthopnea, SOB at rest - Gastrointestinal Gastrointestinal: denies: Abdominal pain, Constipation, Diarrhea, Rectal bleeding, Black stools, Bloody stools, Nausea, Vomiting - Genitourinary Genitourinary: denies: Dysuria, Urgency, Incontinence - Musculoskeletal Musculoskeletal: denies: Muscle pain, Muscle aches, Limited range of motion - Integumentary Integumentary: denies: Rash, Lesions, Lumps - Neurological Neurological: reports: General weakness. denies: Focal weakness, Headache, Dizziness, Numbness, Memory problems, Pre-existing deficit, Abnormal gait, Seizures, Incoordination, Slurred speech - Psychiatric Psychiatric: denies: Depression, Suicidal, Delusions - Endocrine Endocrine: denies: Polyuria, Polyphagia - Hematologic/Lymphatic Hematologic/Lymphatic: denies: Anemia, Petechiae, Blood clots Prior Level of Functionality: Patient was independent in the home Exam - Vital Signs Vital Signs: Vital Signs x48h Temp Pulse Pulse Resp BP BP Pulse Ox 10/03/20 15:52 37.0 C 93 16 123/65 92 10/03/20 13:44 37.4 C 98 19 135/76 H 94 10/03/20 12:56 36.9 C 96 25 H 129/78 94 10/03/20 11:27 103 H 17 143/78 H 94 10/03/20 10:30 103 H 27 H 154/91 H 96 - Physical Exam General Appearance: positive: No acute distress, Alert. negative: Lethargic Eyes Bilateral: positive: Normal inspection, PERRL, No lid inflammation ENT: positive: ENT inspection nml, No signs of dehydration. negative: Purulent nasal drainage Neck: positive: Nml inspection, Trachea midline. negative: Thyromegaly, Tracheal deviation Respiratory: positive: Chest non-tender, No respiratory distress, Rhonchi. negative: Wheezes, Rales Cardiovascular: positive: Regular rate & rhythm, No murmur. negative: Tachycardia, Bradycardia, Systolic murmur, Diastolic murmur Peripheral Pulses: positive: 2+ Abdomen: positive: Non-tender, Nml bowel sounds, No distention. negative: Tenderness, Guarding, Rebound Back: positive: Nml inspection. negative: CVA tenderness (R), CVA tenderness (L) Skin: positive: Color nml, Warm, Dry. negative: Cyanosis, Diaphoresis, Pallor Extremities: positive: Non-tender, Full ROM, Nml appearance. negative: Calf tenderness Neurologic/Psychiatric: positive: Oriented x3, Motor nml, Sensation nml, Mood/a ffect nml. negative: Weakness, Sensory loss, Facial droop, Slurred/abnml speech, Depressed mood/affect Conclusion/Plan - Problem List (1) Sepsis Conclusion/Plan: Patient reported he had 7 to 8 days fever in the home, with cough and shortness of breathing. his Covid-19 test was negative for 5 times. Patient also has el evated lactic acid, tachypnea, tachycardia. Patient was found to have left upper lobe pneumonia in chest x-ray and CT of chest. We will continue treat with antibiotics, intravenous IV fluids, laboratory vital signs monitor, blood culture is pending. (2) Pneumonia Conclusion/Plan: Chest x-ray and CAT scan show patient has left upper lobe pneumonia. COVID-19 test was negative for 5 Times. Patient reported he has a fever in the home, patient has elevated lactic acid, Tachypnea and tachycardia. We will treat with antibiotics, intravenous IV fluids, blood cultures are pending (3) Shortness of breath Conclusion/Plan: Patient reported shortness breathing in the home for more than week. Patient also reported fever in the home. Patient with found to have pneumonia in chest x-ray and CAT scan of the chest. Patient discussed with his medication Brilinta with his information technology director and his information technology director agree to switch Brilinta to Plavix. Patient think Brilinta's side effect also caused his shortness breathing. We will treat antibiotics for pneumonia, which patient home medication Brilinta to Plavix, Consult with pharmacy for switch from Brilinta to Plavix. (4) Acute kidney injury Conclusion/Plan: Patient reported he did not drink much water in the home, he feel he dehydrated, his creatinine increased to 1.6 from his baseline 1.2. We will order intravenous IV fluids, we will laboratory analyst. avoid Nephrotoxic agent (5) Hx of coronary artery disease Conclusion/Plan: Patient had cardiac stent a month ago, he was taking Brilinta, patient information technology director agreed to switch Brilinta to Plavix. Patient had slightly elevated troponin now but Repeated troponin now is in the flat. EKG does not show acute myocardial ischemia. Patient denies chest pain. We will continue Plavix, metoprolol, playground monitor, will resume patient home blood pressure medicine after confirmed (6) Diabetes Conclusion/Plan: Patient has history diabetic 2, he did not take his insulins at home. We will start sliding scale, glucose check and hypoglycemia protocol, check A1c (7) HTN (hypertension) Conclusion/Plan: Patient blood pressure is stable now, we will resume patient home blood pressure medicine after pharmacy confirm - Lab Results Fish Bones: 10/03/20 08:50 10/03/20 08:50 Core Measures - Anticipated LOS I expect patient to be DC'd or transferred within 96 hours.: Yes - DVT/VTE - Prophylaxis VTE/DVT Device ordered at admit?: Yes VTE/DVT Prophylaxis med ordered at admit?: Yes
[2020-10-03] MEDS ORDERED: INSULIN ASPART 300 UNIT/3 ML PEN SUBQ ONE (17:24)
[2020-10-03] MEDS ORDERED: CLOPIDOGREL 300 MG TABLET PO SCH (18:00)
[2020-10-03] MEDS ORDERED: cefTRIAXone 2 GM in SODIUM CHLORIDE 0.9% MINIBAG 100 ML IV SCH (21:00)
[2020-10-03] MEDS ORDERED: INSULIN GLARGINE 300 UNIT/3 ML PEN SUBQ SCH ×2 (21:00)
[2020-10-03] MEDS: MORPHINE 2 MG/ML CARPUJECT IVP PRN (23:52)
[2020-10-04] MEDS ORDERED: MIDAZOLAM 2 MG/2 ML VIAL IVP ONE (00:10)
[2020-10-04] MEDS ORDERED: SUCCINYLCHOLINE 200 MG/10 ML VIAL IVP ONE (00:10)
[2020-10-04] MEDS ORDERED: fentaNYL 100 MCG/2 ML VIAL IVP PRN (00:13)
[2020-10-04 00:20] LABS: BASOPHILS % (AUTO) 0.2 %; EOSINOPHILS % (AUTO) 0.1 %; HGB - HEMOGLOBIN 14.9 g/dL (14.0-18.0); LYMPHOCYTES # (AUTO) 1.7 10^3/uL (1.5-3.5); LYMPHOCYTES % (AUTO) 9.7 %; MEAN CORPUSCULAR HGB CONC 33.2 g/dL (32.0-36.0); MEAN CORPUSCULAR VOLUME 90.5 fL (80.0-94.0); MEAN PLATELET VOLUME 9.9 fL (7.4-11.4); MONOCYTES # (AUTO) 0.8 10^3/uL (0.0-1.0); MONOCYTES % (AUTO) 4.3 %; NEUTROPHILS # (AUTO) 15.1 10^3/uL (1.5-6.6); NEUTROPHILS % (AUTO) 84.4 %; PLT - PLATELET COUNT 271 10^3/uL (130-450); RED BLOOD COUNT 4.96 10^6/uL (4.70-6.10); RED CELL DISTRIBUTION WIDTH 13.4 % (12.0-15.0); WHITE BLOOD COUNT 17.9 x10^3/uL (4.8-10.8)
[2020-10-04 00:25] LABS: ABG HCO3 17.3 mmol/L (22.0-26.0); ABG OXYGEN SATURATION 90 % (94-98); ABG PCO2 47 mmHg (34-45); ABG PO2 68 mmHg (80-100); ABG TCO2 18.7 MMOL/L (21.0-29.0)
[2020-10-04 00:26] LABS: ALLEN TEST POSITIVE
[2020-10-04 00:28] LABS: ABG PH 7.18 (7.35-7.45)
[2020-10-04 00:29] LABS: CALCIUM 7.8 mg/dL (8.5-10.3); CREATININE 1.3 mg/dL (0.6-1.2)
[2020-10-04] MEDS: PROPOFOL 500 MG/50 ML 500 MG/50 ML VIAL IV SCH ×12 (00:45→22:47)
--- NOTE | 2020-10-04 01:14 | PROVIDER PROGRESS NOTE ---
Hospitalist Cross-cover Note - Cross-Cover Note Cross-Cover Note: I was called to the patient's bedside at 11:45 PM as he was becoming increasingly hypoxic and complained of worsening shortness of breath. The patient was evaluated by his nurse at change of shift and was noted to be on 4 L of oxygen via nasal cannula and that he began to desaturate to the low 80s. The patient complained of significant shortness of breath. He was placed on a nonrebreather and despite this, he remained hypoxic in the mid 80s. He was transferred to the intensive care unit where repeat labs were obtained. His IV fluids were discontinued. On exam, he had rhonchorous breath sounds predominantly in the left lung field. He was tachypneic with use of accessory muscles. No lower extremity edema. He was tachycardic with heart rate in the 90s. Stat ABG was obtained which showed a pH 7.18, PCO2 47.2, and PO2 of 61.8. This was on 15 L of oxygen via nonrebreather. Given his significant respiratory distress and hypoxia, I spoke with Dr. Knox of the emergency department regarding the need for intubation. Dr. Knox was able to intubate the patient immediately. He was administered 100 mg of succinylcholine and 5 mg of Versed for induction. We have started the patient on propofol for sedation with fentanyl pushes as needed. Repeat labs showed a sodium of 132 which is stable compared to admission. The patient's bicarbonate has decreased to 18 from 19. BUN is slightly decreased at 40 from 45. Creatinine is down to 1.3 from 1.6. The patient's lactic acid is still elevated at 2.5. Troponin is mildly increased at 39. BNP is elevated at 598. White count has increased to 17.9 with a left shift. Chest x-ray was obtained post intubation which is concerning for worsening left-sided infiltrates. At this time, we will discontinue ceftriaxone and azithromycin. Will place the patient on Levaquin and aztreonam given his penicillin allergy which is listed as unknown but severe. We will check MRSA screen. We will continue patient on gentle IV hydration with lactated Ringer's. Continue with current ventilator settings. He is requiring FiO2 of 100% and a PEEP of 8 on volume control with a tidal volume of 450 mL which is approximate 7 mils per KG of his ideal body weight and a respiratory rate of 20. We will obtain a repeat ABG 30 minutes post intubation. 67 minutes of critical care time were spent which included multiple evaluations of the patient, reviewing chart, new orders, discussing case with the ER provider.
[2020-10-04] MEDS: SODIUM CHLORIDE FLUSH 0.9% 10 ML SYRINGE IVP SCH ×3 (01:23→17:00)
--- NOTE | 2020-10-04 01:39 | MISCELLANEOUS PROVIDER NOTE ---
INTUBATION - Intubation Provider: positive: Emergency physician Medications: positive: Versed, Succinylcholine Blade: positive: Glidescope Tube: positive: Size-enter number (7.5), Cuffed, Marked at lips-enter cm (27) Route: positive: Oral Confirmation: positive: Bilateral breath sounds, No abdominal breath sound, Pulse ox, Chest xray, Other (visualization on screen using Glidescope) Complications: positive: No compications, Desaturated (briefly desaturated; after intubation, respiratory therapist connected ETT to ventilator but there did not appear to be breaths delivered; he was reattached to BVM and briefly desaturated to upper 70s, then rapidly went back to 93-95% with BVM. ), Other (after adjustments in vent settings, he was reattached and pulse ox remained 93- 95% with ventilator)
[2020-10-04] MEDS: SODIUM CHLORIDE 0.9% 1,000 ML IV SCH ×2 (01:45→08:00)
[2020-10-04 01:57] LABS: ABG BASE EXCESS -8.5 mmol/L (-2.0-3.0); ABG HCO3 17.4 mmol/L (22.0-26.0); ABG OXYGEN SATURATION 95 % (94-98); ABG PCO2 37 mmHg (34-45); ABG PH 7.29 (7.35-7.45); ABG PO2 81 mmHg (80-100); ABG TCO2 18.5 MMOL/L (21.0-29.0); ALLEN TEST POSITIVE
[2020-10-04] MEDS ORDERED: LACTATED RINGERS 1,000 ML IV SCH (02:00)
[2020-10-04] MEDS: AZTREONAM 2 GM in SODIUM CHLORIDE 0.9% MINIBAG 100 ML IV SCH ×2 (02:55→11:55)
[2020-10-04 05:48] LABS: BASOPHILS % (AUTO) 0.2 %; EOSINOPHILS % (AUTO) 0.1 %; HGB - HEMOGLOBIN 12.8 g/dL (14.0-18.0); LYMPHOCYTES % (AUTO) 7.1 %; MEAN CORPUSCULAR HEMOGLOBIN 29.7 pg (27.0-31.0); MEAN CORPUSCULAR HGB CONC 32.8 g/dL (32.0-36.0); MEAN CORPUSCULAR VOLUME 90.5 fL (80.0-94.0); MEAN PLATELET VOLUME 10.3 fL (7.4-11.4); MONOCYTES % (AUTO) 5.5 %; NEUTROPHILS % (AUTO) 86.5 %; PLT - PLATELET COUNT 215 10^3/uL (130-450); RED BLOOD COUNT 4.31 10^6/uL (4.70-6.10); RED CELL DISTRIBUTION WIDTH 13.3 % (12.0-15.0); WHITE BLOOD COUNT 12.5 x10^3/uL (4.8-10.8)
[2020-10-04 05:48] LABS: ABG PCO2 29 mmHg (34-45); ABG PH 7.36 (7.35-7.45)
[2020-10-04 05:49] LABS: ABG BASE EXCESS -8.3 mmol/L (-2.0-3.0); ABG HCO3 15.8 mmol/L (22.0-26.0); ABG OXYGEN SATURATION 99 % (94-98); ABG TCO2 16.7 MMOL/L (21.0-29.0); ALLEN TEST POSITIVE
[2020-10-04 05:50] LABS: ABG PO2 155 mmHg (80-100)
[2020-10-04 06:14] LABS: ABNORMAL LYMPHS % (MANUAL) 0 %
[2020-10-04 06:16] LABS: CALCIUM 7.6 mg/dL (8.5-10.3); CREATININE 1.3 mg/dL (0.6-1.2); CRP - C-REACTIVE PROTEIN 34.7 mg/dL (0-1.0)
[2020-10-04 06:33] LABS: BAND NEUTROPHILS % (MANUAL) 8 %; DIFFERENTIAL COMMENT MANUAL DIFFERENTIAL; EOSINOPHILS # (MANUAL) 0.1 10^3/uL (0-0.7); LYMPHOCYTES # (MANUAL) 1.1 10^3/uL (1.5-3.5); LYMPHOCYTES % (MANUAL) 9 %; MONOCYTES # (MANUAL) 1.3 10^3/uL (0.0-1.0); PLATELET ESTIMATE, MANUAL NORMAL (130-450,000) (NORMAL); RBC MORPHOLOGY (MULTIPLE) NORMAL APPEARANCE (NORMAL)
[2020-10-04 06:49] LABS: ALBUMIN 2.7 g/dL (3.2-5.5); MAGNESIUM 1.6 mg/dL (1.7-2.8); PHOSPHORUS 3.6 mg/dL (2.5-4.6)
[2020-10-04] MEDS ORDERED: PANTOPRAZOLE 40 MG TABLET PO SCH (07:00)
[2020-10-04] MEDS: INSULIN ASPART 300 UNIT/3 ML PEN SUBQ SCH ×3 (08:12→17:52)
--- NOTE | 2020-10-04 08:20 | XRAY Report ---
PROCEDURE: Chest 1 View X-Ray INDICATIONS: Worsening hypoxia. TECHNIQUE: One view of the chest was acquired. COMPARISON: 10/03/2020 chest x-ray FINDINGS: Surgical changes and devices: ETT is present, tip of which is roughly 30 mm above the jenny. Lungs and pleura: No pleural effusions or pneumothorax. Increased, severe diffuse left lung airspace opacity. Increased, moderate diffuse right lung airspace opacity. Mediastinum: Mediastinal contours appear normal. Heart size is normal. Bones and chest wall: No suspicious bony lesions. Overlying soft tissues appear unremarkable. IMPRESSION: Increased, left greater than right pneumonia. Reviewed by: Katharina Arroyo MD on 10/04/2020 8:18 AM PST Approved by: Katharina Arroyo MD on 10/04/2020 8:18 AM [facility] Station ID: [id number]
[2020-10-04] MEDS ORDERED: levoFLOXacin 750 MG/150 ML 750 MG/150 ML BAG IV SCH (09:00)
[2020-10-04] MEDS ORDERED: ENOXAPARIN 40 MG/0.4 ML SYRINGE SUBQ SCH (09:00)
[2020-10-04 09:45] LABS: ABG PCO2 30 mmHg (34-45); ABG PH 7.39 (7.35-7.45); ABG PO2 81 mmHg (80-100)
[2020-10-04 09:46] LABS: ABG BASE EXCESS -6.4 mmol/L (-2.0-3.0); ABG HCO3 17.4 mmol/L (22.0-26.0); ABG OXYGEN SATURATION 96 % (94-98); ABG TCO2 18.3 MMOL/L (21.0-29.0); ALLEN TEST POSITIVE
[2020-10-04] MEDS: ASPIRIN CHEW 81 MG TABLET PO SCH (09:53)
[2020-10-04] MEDS: CLOPIDOGREL 75 MG TABLET PO SCH (09:53)
[2020-10-04] MEDS: METOPROLOL TARTRATE 25 MG TABLET PO SCH (09:53)
[2020-10-04 11:55] LABS: HEMOGLOBIN A1c% 8.4 % (4.27-6.07)
--- NOTE | 2020-10-04 12:35 | PROVIDER PROGRESS NOTE ---
Assessment/Plan - Problem List (1) Acute respiratory failure with hypoxia Assessment/Plan: Overnight the patient had rapid respiratory decompensation and developed respiratory acidosis, severe hypoxia with PO2 on blood gas in the 60s. He required urgent intubation, is now sedated on the ventilator in the ICU. Antibiotics have been changed for his dense pneumonia. Will recheck his troponins for an acute NSTEMI. He gets some of his cardiac meds crushed down the NG tube. Will work up for a PE and begin empiric therapeutic anticoagulation until PE ruled out. Serious condition in the ICU (2) Sepsis Assessment/Plan: His admission lactic acid level was 2.5, it increased to 3.2 yesterday before improving today. His blood cx are neg (at 24 hours). He makes no sputum to send for culture. He still has a low serum bicarb level and a compensated metabolic acidosis on his ABG today. White blood count is still elevated. He is no longer tachycardic. Continue with management for infectious cause of sepsis. (3) Ineffective breathing related to ventilator Assessment/Plan: The patient was overbreathing the vent as per the RT evaluation today. He is also dry, nothing is coming up on suctioning. There is concern that a PE has not been ruled out, since it was not the PE protocol that he got with contrast on his chest CT, and he did describe pleuritic chest pain rated 10/10 yesterday. There was no D-dimer done at admis sara. Will reach our in-house Radiologist to discuss the proper imaging for evaluation for PE. We will start empiric treatment with Lovenox at therapeutic doses, because of strong suspicion for PE, unless the chest imaging can be done soon, urgently. Ventilator adjustments robledo being made frequently today, based on his O2 saturations, peak pressures, end-tidal CO2 and his ABG results. Continue GI stress ulcer prophylaxis with iv bid Pepcid. CRITICAL CARE TIME SPENT: 70 min. (4) CAP (community acquired pneumonia) Assessment/Plan: His CT scan shows a dense pneumonia in the left, there is also a possible small opacity on the right and small pleural effusion. He received cefepime IV starting in the ER. Then at admission, he was put on Levaquin and Aztreonam for Pseudomonas coverage, since he was hospitalized 1 mo ago in [place]. Our pharmacist, Haritha was able to call [facility] in [place] and found out that his allergic reaction to Augmentin was "severe agitation". The [place] biogram for Pseudomonas is 88%. Will stop his Aztreonam and Levaquin and change back to IV Cefepime treatment since he is unlikely to have an allergy on Cefepime since he tolerated Cefepime in the ER and since his agitation on Augmentin is a rare complication/side effect. Cefepime iv still gives him Pseudomonas coverage. He makes no sputum for suctioning to send for a sputum culture, per the RT. The choice of antibx was all discussed with our pharmacist, Chiquis. (5) Hypotension Assessment/Plan: Since this morning, around the time of intubation, he has been hypotensive in the 80-100 systolic range. This may be due to his (IV propofol) sedation. Will rule out an GA and recheck troponin. Will do imaging to R/O Pulmonary embolism. We will obtain an Echo to evaluate chamber sizes and LV and RV contractility. We will continue with gentle IV hydration while he is npo, not excessive rate because of concern for pulmonary edema. (6) Status post insertion of drug-eluting stent into left anterior descending (LAD) artery for coronary artery disease Assessment/Plan: The CT scan shows an LAD stent. This was placed 1 month ago. He has been on Brilinta and aspirin since that time. The Brilinta was about to be changed to daily Plavix by the PCP because of "shortness of breath on Brilinta". He got Plavix loaded 600 mg yesterday and is now getting Plavix and aspirin per NG tube. His statin will be resumed when possible. The beta-ana, Amlodipine and Isosorbide all are on hold because of low blood pressure today. (7) Acute kidney injury Assessment/Plan: When he was admitted with sepsis, IV fluids were started. When he had acute respiratory decompensation, the fluids were stopped for concern of pulmonary edema. When he got intubated, gentle IV hydration was resumed. Continuing with gentle rehydration which is improving his creat. Follow BMP daily. (8) Diabetes Assessment/Plan: A1c is 8.4, indicating poor DM management. His Metformin ios on hold due to ZULY and elevated lactic acid level. He is n.p.o. NG tube is for meds. Will change his IV NS fluids to contain D5. We will change his fingerstick checks for an n.p.o. patient. Continue with hypoglycemia protocol. The plan is that he could be extubated soon and will not start Dobbhoff feeds today. (9) Hypomagnesemia Assessment/Plan: Replace. Follow BMP and Mg daily. (10) Hx of essential hypertension Assessment/Plan: At admission, his blood pressure was 170. He is now hypotensive. Home blood pressure meds are on hold. - Current Meds Current Meds: Current Medications Generic Name Dose Route Start Last Admin Trade Name Freq PRN Reason Stop Dose Admin Aspirin 81 mg 10/03/20 13:00 10/04/20 09:53 Aspirin Chew 81 Mg Tablet PO 81 mg DAILY JEANNETTE Administration Clopidogrel Bisulfate 75 mg 10/04/20 09:00 10/04/20 09:53 Clopidogrel 75 Mg Tablet PO 75 mg DAILY JEANNETTE Administration Propofol 500 mg in 50 mls @ 5.468 mls/hr 10/04/20 01:00 10/04/20 12:05 Diprivan IV 45 mcg/kg/min .Q9H9M JEANNETTE 24.607 mls/hr Administration Protocol 10 MCG/KG/MIN Levofloxacin 750 mg in 150 mls @ 100 mls/hr 10/04/20 09:00 10/04/20 11:25 Levaquin 750 Mg/150 Ml IV Infused Q24H JEANNETTE Infusion Insulin Aspart 2 - 10 unit 10/03/20 17:00 10/04/20 12:21 Insulin Aspart 300 Unit/3 Ml Pen SUBQ 6 unit 0800,1200,1700,2100 JEANNETTE Administration Protocol Metoprolol Tartrate 25 mg 10/03/20 13:00 10/04/20 09:53 Metoprolol Tartrate 25 Mg Tablet PO 25 mg BID JEANNETTE Administration Morphine Sulfate 2 mg 10/03/20 12:25 10/03/20 23:52 Morphine 2 Mg/Ml Carpuject IVP 2 mg Q2HR PRN Administration Pain 8 to 10 Sodium Chloride 10 ml 10/03/20 17:00 10/04/20 09:54 Sodium Chloride Flush 0.9% 10 Ml Syringe IVP 10 ml 0100,0900,1700 JEANNETTE Administration - Lab Result Fish Bone Diagrams: 10/04/20 04:23 10/04/20 04:23 - Additional Planning My Orders: My Active Orders 10/04/20 11:08 Central Line Insertion [RC] ONCE 10/04/20 12:28 Chlorhexidine [Peridex] 15 ml PO BID 10/04/20 21:00 Cefepime 2 gm Sodium Chloride 0.9% Minibag [Normal Saline 0.9% Minibag] 100 ml IV BID Famotidine [Pepcid] 20 mg IVP BID Subjective - Subjective Patient Reports: Other (Sedated, intubated on the ventilator) Objective Vital Signs: Vital Signs - 24 hr 10/03/20 10/03/20 10/03/20 12:56 13:44 15:52 Temperature 36.9 C 37.4 C 37.0 C Heart Rate 96 Heart Rate [ 98 93 Brachial] Respiratory 25 H 19 16 Rate Blood Pressure 129/78 Blood Pressure 135/76 H 123/65 [Left Brachial artery] O2 Saturation 94 94 92 10/03/20 10/03/20 10/04/20 19:31 20:45 00:00 Temperature 37.5 C Heart Rate Heart Rate [ 93 91 Brachial] Respiratory 16 27 H Rate Blood Pressure 137/79 H Blood Pressure 137/79 H 178/105 H [Left Brachial artery] O2 Saturation 93 92 10/04/20 10/04/20 10/04/20 00:54 01:00 02:00 Temperature 37.1 C Heart Rate 104 H Heart Rate [ 105 H 87 Brachial] Respiratory 29 H 20 Rate Blood Pressure Blood Pressure 125/71 105/70 [Left Brachial artery] O2 Saturation 96 94 10/04/20 10/04/20 10/04/20 02:16 03:00 04:00 Temperature 37.1 C Heart Rate 84 Heart Rate [ 79 76 Brachial] Respiratory 29 H 32 H Rate Blood Pressure Blood Pressure 113/73 113/70 [Left Brachial artery] O2 Saturation 98 98 10/04/20 10/04/20 10/04/20 04:27 05:00 06:00 Temperature Heart Rate 75 Heart Rate [ 70 Brachial] Respiratory 27 H 26 H Rate Blood Pressure Blood Pressure 106/70 102/68 [Left Brachial artery] O2 Saturation 99 99 10/04/20 10/04/20 10/04/20 06:45 07:39 08:00 Temperature 36.4 C L Heart Rate 69 Heart Rate [ 69 68 Brachial] Respiratory 25 H 24 Rate Blood Pressure Blood Pressure 102/68 101/70 [Left Brachial artery] O2 Saturation 99 100 10/04/20 10/04/20 10/04/20 08:07 09:00 09:41 Temperature Heart Rate 67 64 Heart Rate [ 66 Brachial] Respiratory 26 H Rate Blood Pressure Blood Pressure 100/64 [Left Brachial artery] O2 Saturation 97 10/04/20 10/04/20 10/04/20 09:53 10:00 11:00 Temperature Heart Rate Heart Rate [ 65 62 Brachial] Respiratory 26 H 28 H Rate Blood Pressure 100/64 Blood Pressure 103/61 95/61 [Left Brachial artery] O2 Saturation 97 98 10/04/20 10/04/20 11:32 12:00 Temperature 36.9 C Heart Rate 63 Heart Rate [ 63 Brachial] Respiratory 26 H Rate Blood Pressure Blood Pressure 98/65 [Left Brachial artery] O2 Saturation 96 Oxygen O2 Source Mechanical ventilator I&O (Last 24 Hrs): Intake and Output Totals x24h 10/02/20 10/03/20 10/04/20 23:59 23:59 23:59 Intake Total 3690 1831.241 Output Total 1150 685 Balance 2540 1146.241 General: Other (sedated) HEENT: Other (intubated, on vent, ng tube in) Cardiovascular: Regular rate Respiratory: Other (On vent) Extremities: No edema - Results Results: Laboratory Results WBC 12.5 x10^3/uL (4.8-10.8) H 10/04/20 04:23 RBC 4.31 10^6/uL (4.70-6.10) L 10/04/20 04:23 Hgb 12.8 g/dL (14.0-18.0) L 10/04/20 04:23 Hct 39.0 % (42.0-52.0) L 10/04/20 04:23 MCV 90.5 fL (80.0-94.0) 10/04/20 04:23 MCH 29.7 pg (27.0-31.0) 10/04/20 04:23 MCHC 32.8 g/dL (32.0-36.0) 10/04/20 04:23 RDW 13.3 % (12.0-15.0) 10/04/20 04:23 Plt Count 215 10^3/uL (130-450) 10/04/20 04:23 MPV 10.3 fL (7.4-11.4) 10/04/20 04:23 Neut # (Auto) Not Reportable 10/04/20 04:23 Lymph # (Auto) Not Reportable 10/04/20 04:23 [place] # (Auto) Not Reportable 10/04/20 04:23 Eos # (Auto) Not Reportable 10/04/20 04:23 Baso # (Auto) Not Reportable 10/04/20 04:23 Absolute Nucleated RBC Not Reportable 10/04/20 04:23 Total Counted 100 10/04/20 04:23 Band Neuts % (Manual) 8 % (0-10) 10/04/20 04:23 Abnorm Lymph % (Manual) 0 % 10/04/20 04:23 Nucleated RBC % Not Reportable 10/04/20 04:23 Neutrophils # (Manual) 10.0 10^3/uL (1.5-6.6) H 10/04/20 04:23 Lymphocytes # (Manual) 1.1 10^3/uL (1.5-3.5) L 10/04/20 04:23 Monocytes # (Manual) 1.3 10^3/uL (0.0-1.0) H 10/04/20 04:23 Eosinophils # (Manual) 0.1 10^3/uL (0-0.7) 10/04/20 04:23 Basophils # (Manual) 0.0 10^3/uL (0-0.1) 10/04/20 04:23 Differential Comment MANUAL DIFFERENTIAL 10/04/20 04:23 Platelet Estimate NORMAL (130-450,000) (NORMAL) 10/04/20 04:23 RBC Morph Micro Appear NORMAL APPEARANCE (NORMAL) 10/04/20 04:23 Bld Gas Analysis Time 0937 10/04/20 09:37 Sample Site LEFT RADIAL 10/04/20 09:37 ABG pH 7.39 (7.35-7.45) 10/04/20 09:37 ABG pCO2 30 mmHg (34-45) L 10/04/20 09:37 ABG pO2 81 mmHg (80-100) 10/04/20 09:37 ABG HCO3 17.4 mmol/L (22.0-26.0) L 10/04/20 09:37 ABG Total CO2 18.3 MMOL/L (21.0-29.0) L 10/04/20 09:37 ABG O2 Saturation 96 % (94-98) 10/04/20 09:37 ABG Oximetry Spot Check 97 % 10/04/20 09:37 ABG Base Excess -6.4 mmol/L (-2.0-3.0) L 10/04/20 09:37 Chinedu Test POSITIVE 10/04/20 09:37 Respiration Rate 27 b/min 10/04/20 09:37 O2 Delivery Device VENTILATOR 10/04/20 09:37 Vent Mode SIMV 10/04/20 09:37 FiO2 60.00 10/04/20 09:37 Tidal Volume 450 mL 10/04/20 09:37 PEEP 8 cmH2O 10/04/20 09:37 Pressure Support Vent 10 cmH2O 10/04/20 09:37 Sodium 134 mmol/L (135-145) L 10/04/20 04:23 Potassium 4.2 mmol/L (3.5-5.0) 10/04/20 04:23 Chloride 106 mmol/L (101-111) 10/04/20 04:23 Carbon Dioxide 17 mmol/L (21-32) L 10/04/20 04:23 Anion Gap 11.0 (6-13) 10/04/20 04:23 BUN 47 mg/dL (6-20) H 10/04/20 04:23 Creatinine 1.3 mg/dL (0.6-1.2) H 10/04/20 04:23 Estimated GFR (MDRD) 53 (>89) L 10/04/20 04:23 Glucose 222 mg/dL (70-100) H 10/04/20 04:23 POC Whole Bld Glucose 243 mg/dL (70 - 100) H 10/04/20 12:14 Estimat Average Glucose 194 mg/dL (70-100) H 10/04/20 04:23 Hemoglobin A1c % 8.4 % (4.27-6.07) H 10/04/20 04:23 Lactic Acid 1.3 mmol/L (0.5-2.2) 10/04/20 04:23 Calcium 7.6 mg/dL (8.5-10.3) L 10/04/20 04:23 Phosphorus 3.6 mg/dL (2.5-4.6) 10/04/20 04:23 Magnesium 1.6 mg/dL (1.7-2.8) L 10/04/20 04:23 Total Bilirubin 0.6 mg/dL (0.2-1.0) 10/03/20 08:50 AST 36 IU/L (10-42) 10/03/20 08:50 ALT 24 IU/L (10-60) 10/03/20 08:50 Alkaline Phosphatase 65 IU/L (42-121) 10/03/20 08:50 Troponin I High Sens 30.3 ng/L (2.3-19.7) H* 10/03/20 17:36 C-Reactive Protein 34.7 mg/dL (0-1.0) H 10/04/20 04:23 B-Natriuretic Peptide 598 pg/mL (5-100) H 10/03/20 00:12 Total Protein 7.4 g/dL (6.7-8.2) 10/03/20 08:50 Albumin 2.7 g/dL (3.2-5.5) L 10/04/20 04:23 Globulin 3.7 g/dL (2.1-4.2) 10/03/20 08:50 Albumin/Globulin Ratio 1.0 (1.0-2.2) 10/03/20 08:50 Lipase 25 U/L (22-51) 10/03/20 08:50 Urine Color DARK YELLOW 10/03/20 09:30 Urine Clarity CLEAR (CLEAR) 10/03/20 09:30 Urine pH 5.5 PH (5.0-7.5) 10/03/20 09:30 Ur Specific [facility] 1.025 (1.002-1.030) 10/03/20 09:30 Urine Protein 30 mg/dL (NEGATIVE) H 10/03/20 09:30 Urine Glucose (UA) 500 mg/dL (NEGATIVE) H 10/03/20 09:30 Urine Ketones NEGATIVE mg/dL (NEGATIVE) 10/03/20 09:30 Urine Occult Blood SMALL (NEGATIVE) H 10/03/20 09:30 Urine Nitrite NEGATIVE (NEGATIVE) 10/03/20 09:30 Urine Bilirubin NEGATIVE (NEGATIVE) 10/03/20 09:30 Urine Urobilinogen 0.2 (NORMAL) E.U./dL (NORMAL) 10/03/20 09:30 Ur Leukocyte Esterase NEGATIVE (NEGATIVE) 10/03/20 09:30 Urine RBC 0-5 /HPF (0-5) 10/03/20 09:30 Urine WBC 0-3 /HPF (0-3) 10/03/20 09:30 Ur Squamous Epith Cells NONE SEEN (<= Few) 10/03/20 09:30 Urine Bacteria Rare /HPF (None Seen) 10/03/20 09:30 Urine Casts 0-2 Fine Granular /LPF 10/03/20 09:30 Urine Mucus Few Strands 10/03/20 09:30 Ur Microscopic Review INDICATED 10/03/20 09:30 Urine Culture Comments NOT INDICATED 10/03/20 09:30 Nasal Adenovirus (PCR) NOT DETECTED 10/03/20 09:41 Nasal B. parapertussis DNA (PCR) NOT DETECTED 10/03/20 09:41 Nasal Coronavir 229E PCR NOT DETECTED 10/03/20 09:41 Nasal Coronavir HKU1 PCR NOT DETECTED 10/03/20 09:41 Nasal Coronavir NL63 PCR NOT DETECTED 10/03/20 09:41 Nasal Coronavir OC43 PCR NOT DETECTED 10/03/20 09:41 Nasal Enterovir/Rhinovir PCR NOT DETECTED 10/03/20 09:41 Nasal Influenza B PCR NOT DETECTED 10/03/20 09:41 Nasal Influenza A PCR NOT DETECTED 10/03/20 09:41 Nasal Parainfluen 1 PCR NOT DETECTED 10/03/20 09:41 Nasal Parainfluen 2 PCR NOT DETECTED 10/03/20 09:41 Nasal Parainfluen 3 PCR NOT DETECTED 10/03/20 09:41 Nasal Parainfluen 4 PCR NOT DETECTED 10/03/20 09:41 Nasal RSV (PCR) NOT DETECTED 10/03/20 09:41 Nasal Screen MRSA (PCR) NEGATIVE (NEGATIVE) 10/04/20 00:05 Nasal B.pertussis DNA PCR NOT DETECTED 10/03/20 09:41 Nasal C.pneumoniae (PCR) NOT DETECTED 10/03/20 09:41 Tien Human Metapneumo PCR NOT DETECTED 10/03/20 09:41 Nasal M.pneumoniae (PCR) NOT DETECTED 10/03/20 09:41 Nasal SARS-CoV-2 (PCR) NOT DETECTED 10/03/20 09:41 Blood Type A POSITIVE 10/03/20 09:30 Blood Type Recheck A POSITIVE 10/03/20 09:00 Antibody Screen NEGATIVE 10/03/20 09:30
[2020-10-04] MEDS ORDERED: IOVERSOL 320 100 ML VIAL IVP ONE ×2 (13:55→18:08)
[2020-10-04] MEDS: DEXTROSE 5%-0.9% NACL 1,000 ML IV SCH (14:50)
[2020-10-04] MEDS: CHLORHEXIDINE GLUCONATE 15 ML UDC PO SCH (16:00)
--- NOTE | 2020-10-04 16:46 | ANESTHESIA PROCEDURE NOTE ---
Anesth Central Line Template - Central Line Central Line Preparation: Unable to obtain consent Central line location: Right IJ Central line type: Triple lumen Central line catheter tip site resides: [place], right Central line aftercare: Chlorhexidine disc placed, Secured, Placement confirmed, No pneumothorax, No complications, Bundle checklist complete, Pt tolerated well
--- NOTE | 2020-10-04 17:08 | XRAY Report ---
PROCEDURE: Chest for Line Placement INDICATIONS: verify CL placement TECHNIQUE: One view of the chest was acquired. COMPARISON: 10/03/2020 FINDINGS: Surgical changes and devices: There is interval intubation, ET tube tip is approximately 3.3 cm above the jenny. Right internal jugular central venous catheter tip is projecting in the expected locatio n of SVC.. Lungs and pleura: There is interval worsening of left lung aeration suggestive of worsening left lung infiltrates. Small to moderate left pleural effusion is also likely present. Pulmonary vascular rosalino estion is seen. No gross pneumothorax. Mediastinum: Mediastinal contours appear normal. Heart size is normal. Bones and chest wall: No suspicious bony lesions. Overlying soft tissues appear unremarkable. IMPRESSION: 1. ET tube and right-sided central venous catheter positions as above. 2. Interval worsening of left lung aeration suggestion of worsening left-sided pulmonary infiltrates. Suggestion of small to moderate left pleural effusion. No gross pneumothorax. Reviewed by: Topher Dumont MD on 10/04/2020 5:07 PM PST Approved by: Topher Dumont MD on 10/04/2020 5:07 PM PST Station ID: [id number]
--- NOTE | 2020-10-04 19:05 | CT Report ---
PROCEDURE: ANGIO CHEST W/WO INDICATIONS: CONCERN FOR PE CONTRAST: 80 mL Isovue 320 intravenously TECHNIQUE: After the administration of intravenous contrast, 2 mm thick sections acquired from the pulmonary api candice to the posterior costophrenic angles. 3-dimensional maximum intensity projection (MIP) coronal a nd sagittal reformats were then acquired through the thorax. For radiation dose reduction, the follow ing was used: automated exposure control, adjustment of mA and/or kV according to patient size. COMPARISON: Chest radiographs 10/04/2020 FINDINGS: Image quality: Excellent. Pulmonary arteries: Pulmonary arteries are normal in size, and demonstrate no intraluminal filling d efects to suggest central pulmonary embolism. Lungs and pleura: Dense consolidations are seen in the left upper and lower lobes. There is consolida tion versus atelectasis in the dependent portions of the right lung. Streak artifact partially obscur es the lung bases, which compromises evaluation for a dependent pleural effusion. No large pleural ef fusion is seen. There is no pneumothorax. An endotracheal tube is seen in satisfactory position. Mediastinum: Heart size is normal, without pericardial effusion. No mediastinal or hilar adenopathy . Thoracic aorta is normal in caliber and enhancement. Aortic and coronary artery atherosclerotic ca lcifications are present. Esophagus is normal in caliber, without hiatal hernia. Enteric tube termi nates in the stomach. A right internal jugular catheter is seen with tip in the superior vena cava. Bones and chest wall: No suspicious bony lesions. Ribs and thoracic spine appear intact throughout. The thyroid is normal. No axillary or supraclavicular adenopathy. Abdomen: Visualized upper abdominal solid organs appear normal in the early arterial phase of enhanc ement. IMPRESSION: 1. No acute pulmonary embolus. 2. Dense consolidations throughout the left lung are most compatible with pneumonia. There is atelec tasis versus consolidation of the dependent portions of the right lung. 3. Lines and tubes in satisfactory positions. Reviewed by: Jong Hernandez MD on 10/04/2020 7:04 PM PST Approved by: Jong Hernandez MD on 10/04/2020 7:04 PM PST Station ID: [id number]
[2020-10-04] MEDS: IOVERSOL 320 100 ML VIAL IVP ONE (19:10)
[2020-10-04] MEDS: MORPHINE 2 MG/ML CARPUJECT IVP PRN (21:12)
[2020-10-04] MEDS: CEFEPIME 2 GM in SODIUM CHLORIDE 0.9% MINIBAG 100 ML IV SCH (21:18)
[2020-10-05] MEDS: FAMOTIDINE 20 MG/2 ML VIAL IVP SCH ×2 (00:48→09:51)
[2020-10-05] MEDS: CHLORHEXIDINE GLUCONATE 15 ML UDC PO SCH ×2 (00:48→09:51)
[2020-10-05] MEDS: INSULIN ASPART 300 UNIT/3 ML PEN SUBQ SCH ×5 (00:48→20:36)
[2020-10-05] MEDS: METOPROLOL TARTRATE 25 MG TABLET PO SCH ×3 (00:49→22:43)
[2020-10-05] MEDS: PROPOFOL 500 MG/50 ML 500 MG/50 ML VIAL IV SCH ×2 (02:05→06:51)
[2020-10-05 05:01] LABS: BASOPHILS % (AUTO) 0.1 %; EOSINOPHILS % (AUTO) 0.1 %; HGB - HEMOGLOBIN 11.5 g/dL (14.0-18.0); LYMPHOCYTES # (AUTO) 1.1 10^3/uL (1.5-3.5); MEAN CORPUSCULAR HEMOGLOBIN 29.9 pg (27.0-31.0); MEAN CORPUSCULAR HGB CONC 33.1 g/dL (32.0-36.0); MEAN CORPUSCULAR VOLUME 90.4 fL (80.0-94.0); MEAN PLATELET VOLUME 9.7 fL (7.4-11.4); MONOCYTES # (AUTO) 0.5 10^3/uL (0.0-1.0); MONOCYTES % (AUTO) 5.7 %; NEUTROPHILS # (AUTO) 7.2 10^3/uL (1.5-6.6); NEUTROPHILS % (AUTO) 81.2 %; PLT - PLATELET COUNT 203 10^3/uL (130-450); RED BLOOD COUNT 3.84 10^6/uL (4.70-6.10); RED CELL DISTRIBUTION WIDTH 13.7 % (12.0-15.0); WHITE BLOOD COUNT 8.8 x10^3/uL (4.8-10.8)
[2020-10-05 05:10] LABS: MAGNESIUM 1.9 mg/dL (1.7-2.8); PHOSPHORUS 2.4 mg/dL (2.5-4.6)
[2020-10-05 05:31] LABS: CALCIUM 7.7 mg/dL (8.5-10.3); CREATININE 1.1 mg/dL (0.6-1.2)
[2020-10-05] MEDS: SODIUM CHLORIDE FLUSH 0.9% 10 ML SYRINGE IVP SCH ×3 (06:12→18:18)
[2020-10-05] MEDS: DEXTROSE 5%-0.9% NACL 1,000 ML IV SCH (07:30)
[2020-10-05] MEDS ORDERED: POTASSIUM PHOSPHATE 15 MMOL in SODIUM CHLORIDE 0.9% 250 ML IV ONE (08:00)
[2020-10-05] MEDS: CEFEPIME 2 GM in SODIUM CHLORIDE 0.9% MINIBAG 100 ML IV SCH ×2 (08:30→20:29)
[2020-10-05] MEDS: ASPIRIN CHEW 81 MG TABLET PO SCH (09:46)
[2020-10-05] MEDS: CLOPIDOGREL 75 MG TABLET PO SCH (09:46)
--- NOTE | 2020-10-05 16:14 | PROVIDER PROGRESS NOTE ---
Assessment/Plan - Problem List (1) Acute respiratory failure with hypoxia Assessment/Plan: This morning he was put on CPAP and did well, had parameters that were excellent and was successfully extubated. He is now on supplemental oxygen just by nasal cannula. He has no cough or tachypnea as he is speaking. We will transfer him out of the ICU this afternoon. Continue with oxygen, titrate down to room air over several days, keeping sats greater than 90% (2) CAP (community acquired pneumonia) Assessment/Plan: CT of the chest was repeated yesterday with contrast in the pulmonary phase and a PE was ruled out. Continue with treatment for community-acquired bacterial pneumonia. His Covid status is negative. Continue with Mucinex for pulmonary toilet, and supplemental oxygen as needed (3) Status post insertion of drug-eluting stent into left anterior descending (LAD) artery for coronary artery disease Assessment/Plan: The CT scan shows his LAD stent. This was placed 1 month ago. He had been on Brilinta and aspirin since that time. The Brilinta was about to be changed to daily Plavix by the PCP because of "shortness of breath on Brilinta". He got Plavix loaded 600 mg and is now getting daily Plavix and aspirin. His statin will be resumed now The beta-ana, Amlodipine and Isosorbide all were on hold because of low blood pressure. Will resume his beta-ana and then stagger resumption of the others. (4) Acute kidney injury Assessment/Plan: This is improving nearly daily, now his labs show prerenal azotemia. Continue with gentle hydration. Follow-up BMP daily (5) Diabetes Assessment/Plan: A1c was 8.4, not good control. Glimepiride was on hold. While here he will be started on carb controlled diet and sliding scale insulin (6) Hx of essential hypertension Assessment/Plan: His blood pressures are now rising and will resume his meds slowly in a staggered fashion (7) Hypomagnesemia Assessment/Plan: Resolved with replacement (8) Hypotension Assessment/Plan: Resolved (9) Sepsis Assessment/Plan: White blood count improving, no fever, respiratory status improving, sepsis has cleared. - Current Meds Current Meds: Current Medications Generic Name Dose Route Start Last Admin Trade Name Freq PRN Reason Stop Dose Admin Aspirin 81 mg 10/03/20 13:00 10/05/20 09:46 Aspirin Chew 81 Mg Tablet PO 81 mg DAILY JEANNETTE Administration Clopidogrel Bisulfate 75 mg 10/04/20 09:00 10/05/20 09:46 Clopidogrel 75 Mg Tablet PO 75 mg DAILY JEANNETTE Administration Cefepime HCl 2 gm/ Sodium 100 mls @ 200 mls/hr 10/04/20 21:00 10/05/20 09:00 Chloride IV Infused BID JEANNETTE Infusion Dextrose/Sodium Chloride 1,000 mls @ 60 mls/hr 10/04/20 13:00 10/05/20 15:00 D5ns IV 60 mls/hr .[id number] JEANNETTE Infusion Insulin Aspart 2 - 10 unit 10/03/20 17:00 10/05/20 11:17 Insulin Aspart 300 Unit/3 Ml Pen SUBQ 2 unit 0800,1200,1700,2100 JEANNETTE Administration Protocol Metoprolol Tartrate 25 mg 10/04/20 13:18 10/05/20 09:47 Metoprolol Tartrate 25 Mg Tablet PO 25 mg BID JEANNETTE Administration Sodium Chloride 10 ml 10/03/20 17:00 10/05/20 09:00 Sodium Chloride Flush 0.9% 10 Ml Syringe IVP 10 ml 0100,0900,1700 JEANNETTE Administration - Lab Result Fish Bone Diagrams: 10/05/20 04:40 10/05/20 04:40 - Additional Planning My Orders: My Active Orders 10/04/20 21:00 Cefepime 2 gm Sodium Chloride 0.9% Minibag [Normal Saline 0.9% Minibag] 100 ml IV BID 10/05/20 Evaluate and Treat OT [OT] Routine Evaluate and Treat PT [PT] Routine 10/05/20 07:57 RT [Oxygen Therapy] [RC] .PRN 10/05/20 Lunch Clear Liquid Diet [DIET] 10/05/20 11:31 Miscellaenous Nursing Order [RC] QSHIFT 10/05/20 16:11 Transfer [Admit \\ Transfer \\ Status] [RC] .ONCE 10/05/20 16:12 Telemetry- [RC] Q4HR 10/05/20 Dinner DIET [Soft Mechanical Diet] [DIET] 10/05/20 21:00 Pravastatin [Pravachol] 10 mg PO QPM 10/06/20 09:00 Multivitamin [Theragran] 1 tab PO DAILY Pantoprazole [Protonix] 40 mg PO DAILY Subjective - Subjective Patient Reports: Resting Comfortably, No Complaints Objective Vital Signs: Vital Signs - 24 hr 10/04/20 10/04/20 10/04/20 16:18 17:00 17:15 Temperature 37.2 C Heart Rate 67 75 Heart Rate [ Activity] Heart Rate [ 74 Brachial] Heart Rate [ Monitoring electrodes] Heart Rate [ Supine] Respiratory 28 H 27 H Rate Blood Pressure Blood Pressure [Activity] Blood Pressure 105/67 [Left Brachial artery] Blood Pressure [Supine] O2 Saturation 97 96 10/04/20 10/04/20 10/04/20 18:00 19:00 20:00 Temperature 98.9 C H Heart Rate Heart Rate [ Activity] Heart Rate [ 74 80 74 Brachial] Heart Rate [ Monitoring electrodes] Heart Rate [ Supine] Respiratory 28 H 26 H 25 H Rate Blood Pressure Blood Pressure [Activity] Blood Pressure 114/71 131/76 H 116/66 [Left Brachial artery] Blood Pressure [Supine] O2 Saturation 97 96 98 10/04/20 10/04/20 10/04/20 20:05 21:00 22:00 Temperature Heart Rate 75 Heart Rate [ Activity] Heart Rate [ 76 80 Brachial] Heart Rate [ Monitoring electrodes] Heart Rate [ Supine] Respiratory 27 H 25 H Rate Blood Pressure Blood Pressure [Activity] Blood Pressure 119/68 128/71 [Left Brachial artery] Blood Pressure [Supine] O2 Saturation 96 96 10/04/20 10/05/20 10/05/20 23:00 00:00 00:49 Temperature 36.8 C Heart Rate Heart Rate [ Activity] Heart Rate [ 82 81 Brachial] Heart Rate [ Monitoring electrodes] Heart Rate [ Supine] Respiratory 21 25 H Rate Blood Pressure 124/63 Blood Pressure [Activity] Blood Pressure 131/71 H 124/63 [Left Brachial artery] Blood Pressure [Supine] O2 Saturation 97 95 10/05/20 10/05/20 10/05/20 01:00 01:30 02:00 Temperature Heart Rate 77 Heart Rate [ Activity] Heart Rate [ 80 77 Brachial] Heart Rate [ Monitoring electrodes] Heart Rate [ Supine] Respiratory 26 H 24 Rate Blood Pressure Blood Pressure [Activity] Blood Pressure 124/64 119/63 [Left Brachial artery] Blood Pressure [Supine] O2 Saturation 93 93 10/05/20 10/05/20 10/05/20 03:00 04:00 05:00 Temperature 37.1 C Heart Rate Heart Rate [ Activity] Heart Rate [ 77 76 76 Brachial] Heart Rate [ Monitoring electrodes] Heart Rate [ Supine] Respiratory 26 H 25 H 26 H Rate Blood Pressure Blood Pressure [Activity] Blood Pressure 120/64 114/59 L 118/68 [Left Brachial artery] Blood Pressure [Supine] O2 Saturation 94 94 94 10/05/20 10/05/20 10/05/20 05:05 06:00 06:57 Temperature Heart Rate 77 Heart Rate [ Activity] Heart Rate [ 80 77 Brachial] Heart Rate [ Monitoring electrodes] Heart Rate [ Supine] Respiratory 24 24 Rate Blood Pressure Blood Pressure [Activity] Blood Pressure 126/71 122/69 [Left Brachial artery] Blood Pressure [Supine] O2 Saturation 93 94 10/05/20 10/05/20 10/05/20 07:05 08:00 09:00 Temperature 36.8 C 37.6 C Heart Rate 94 Heart Rate [ Activity] Heart Rate [ 110 H 99 Brachial] Heart Rate [ Monitoring electrodes] Heart Rate [ Supine] Respiratory 26 H 18 Rate Blood Pressure Blood Pressure [Activity] Blood Pressure 141/94 H 146/77 H [Left Brachial artery] Blood Pressure [Supine] O2 Saturation 91 L 94 10/05/20 10/05/20 10/05/20 09:47 10:00 11:00 Temperature 37.6 C 37.3 C Heart Rate Heart Rate [ Activity] Heart Rate [ 86 86 Brachial] Heart Rate [ Monitoring electrodes] Heart Rate [ Supine] Respiratory 24 21 Rate Blood Pressure 146/77 H Blood Pressure [Activity] Blood Pressure 152/80 H 132/86 H [Left Brachial artery] Blood Pressure [Supine] O2 Saturation 95 92 10/05/20 10/05/20 10/05/20 12:00 13:00 13:30 Temperature Heart Rate Heart Rate [ 97 Activity] Heart Rate [ Brachial] Heart Rate [ 92 96 Monitoring electrodes] Heart Rate [ 91 Supine] Respiratory 20 23 Rate Blood Pressure Blood Pressure 189/97 H [Activity] Blood Pressure 139/80 H 113/62 [Left Brachial artery] Blood Pressure 157/88 H [Supine] O2 Saturation 94 93 10/05/20 10/05/20 14:00 15:00 Temperature 36.9 C 37.3 C Heart Rate Heart Rate [ Activity] Heart Rate [ Brachial] Heart Rate [ 95 91 Monitoring electrodes] Heart Rate [ Supine] Respiratory 23 26 H Rate Blood Pressure Blood Pressure [Activity] Blood Pressure 150/91 H 137/65 H [Left Brachial artery] Blood Pressure [Supine] O2 Saturation 93 92 Oxygen O2 Source NC w/humidity I&O (Last 24 Hrs): Intake and Output Totals x24h 10/03/20 10/04/20 10/05/20 23:59 23:59 23:59 Intake Total 3690 2515.254 2274.000 Output Total 1150 1455 2250 Balance 2540 1060.254 24.000 General: Alert, Oriented x3 HEENT: Mucous membr. moist/pink Neck: Supple Neuro: Alert, Non Focal Cardiovascular: Regular rate Respiratory: No respiratory distress, Other (On )2 n.c. Diminished breath sounds) Abdomen: Soft Extremities: No edema - Results Results: Laboratory Results WBC 8.8 x10^3/uL (4.8-10.8) 10/05/20 04:40 RBC 3.84 10^6/uL (4.70-6.10) L 10/05/20 04:40 Hgb 11.5 g/dL (14.0-18.0) L 10/05/20 04:40 Hct 34.7 % (42.0-52.0) L 10/05/20 04:40 MCV 90.4 fL (80.0-94.0) 10/05/20 04:40 MCH 29.9 pg (27.0-31.0) 10/05/20 04:40 MCHC 33.1 g/dL (32.0-36.0) 10/05/20 04:40 RDW 13.7 % (12.0-15.0) 10/05/20 04:40 Plt Count 203 10^3/uL (130-450) 10/05/20 04:40 MPV 9.7 fL (7.4-11.4) 10/05/20 04:40 Neut # (Auto) 7.2 10^3/uL (1.5-6.6) H 10/05/20 04:40 Lymph # (Auto) 1.1 10^3/uL (1.5-3.5) L 10/05/20 04:40 [place] # (Auto) 0.5 10^3/uL (0.0-1.0) 10/05/20 04:40 Eos # (Auto) 0.0 10^3/uL (0.0-0.7) 10/05/20 04:40 Baso # (Auto) 0.0 10^3/uL (0.0-0.1) 10/05/20 04:40 Absolute Nucleated RBC 0.00 x10^3/uL 10/05/20 04:40 Total Counted 100 10/04/20 04:23 Band Neuts % (Manual) 8 % (0-10) 10/04/20 04:23 Abnorm Lymph % (Manual) 0 % 10/04/20 04:23 Nucleated RBC % 0.0 /100WBC 10/05/20 04:40 Neutrophils # (Manual) 10.0 10^3/uL (1.5-6.6) H 10/04/20 04:23 Lymphocytes # (Manual) 1.1 10^3/uL (1.5-3.5) L 10/04/20 04:23 Monocytes # (Manual) 1.3 10^3/uL (0.0-1.0) H 10/04/20 04:23 Eosinophils # (Manual) 0.1 10^3/uL (0-0.7) 10/04/20 04:23 Basophils # (Manual) 0.0 10^3/uL (0-0.1) 10/04/20 04:23 Differential Comment MANUAL DIFFERENTIAL 10/04/20 04:23 Platelet Estimate NORMAL (130-450,000) (NORMAL) 10/04/20 04:23 RBC Morph Micro Appear NORMAL APPEARANCE (NORMAL) 10/04/20 04:23 Bld Gas Analysis Time 0910/04/20 09:37 Sample Site LEFT RADIAL 10/04/20 09:37 ABG pH 7.39 (7.35-7.45) 10/04/20 09:37 ABG pCO2 30 mmHg (34-45) L 10/04/20 09:37 ABG pO2 81 mmHg (80-100) 10/04/20 09:37 ABG HCO3 17.4 mmol/L (22.0-26.0) L 10/04/20 09:37 ABG Total CO2 18.3 MMOL/L (21.0-29.0) L 10/04/20 09:37 ABG O2 Saturation 96 % (94-98) 10/04/20 09:37 ABG Oximetry Spot Check 97 % 10/04/20 09:37 ABG Base Excess -6.4 mmol/L (-2.0-3.0) L 10/04/20 09:37 [place] Test POSITIVE 10/04/20 09:37 Respiration Rate 27 b/min 10/04/20 09:37 O2 Delivery Device VENTILATOR 10/04/20 09:37 Vent Mode SIMV 10/04/20 09:37 FiO2 60.00 10/04/20 09:37 Tidal Volume 450 mL 10/04/20 09:37 PEEP 8 cmH2O 10/04/20 09:37 Pressure Support Vent 10 cmH2O 10/04/20 09:37 Sodium 136 mmol/L (135-145) 10/05/20 04:40 Potassium 3.7 mmol/L (3.5-5.0) 10/05/20 04:40 Chloride 108 mmol/L (101-111) 10/05/20 04:40 Carbon Dioxide 20 mmol/L (21-32) L 10/05/20 04:40 Anion Gap 8.0 (6-13) 10/05/20 04:40 BUN 35 mg/dL (6-20) H 10/05/20 04:40 Creatinine 1.1 mg/dL (0.6-1.2) 10/05/20 04:40 Estimated GFR (MDRD) 64 (>89) L 10/05/20 04:40 Glucose 234 mg/dL (70-100) H 10/05/20 04:40 POC Whole Bld Glucose 178 mg/dL (70 - 100) H 10/05/20 11:09 Estimat Average Glucose 194 mg/dL (70-100) H 10/04/20 04:23 Hemoglobin A1c % 8.4 % (4.27-6.07) H 10/04/20 04:23 Lactic Acid 1.3 mmol/L (0.5-2.2) 10/04/20 04:23 Calcium 7.7 mg/dL (8.5-10.3) L 10/05/20 04:40 Phosphorus 2.4 mg/dL (2.5-4.6) L 10/05/20 04:40 Magnesium 1.9 mg/dL (1.7-2.8) 10/05/20 04:40 Total Bilirubin 0.6 mg/dL (0.2-1.0) 10/03/20 08:50 AST 36 IU/L (10-42) 10/03/20 08:50 ALT 24 IU/L (10-60) 10/03/20 08:50 Alkaline Phosphatase 65 IU/L (42-121) 10/03/20 08:50 Troponin I High Sens 41.1 ng/L (2.3-19.7) H* 10/04/20 13:07 C-Reactive Protein 23.0 mg/dL (0-1.0) H 10/05/20 04:40 B-Natriuretic Peptide 598 pg/mL (5-100) H 10/03/20 00:12 Total Protein 7.4 g/dL (6.7-8.2) 10/03/20 08:50 Albumin 2.4 g/dL (3.2-5.5) L 10/05/20 04:40 Globulin 3.7 g/dL (2.1-4.2) 10/03/20 08:50 Albumin/Globulin Ratio 1.0 (1.0-2.2) 10/03/20 08:50 Lipase 25 U/L (22-51) 10/03/20 08:50 Urine Color DARK YELLOW 10/03/20 09:30 Urine Clarity CLEAR (CLEAR) 10/03/20 09:30 Urine pH 5.5 PH (5.0-7.5) 10/03/20 09:30 Ur Specific [place] 1.025 (1.002-1.030) 10/03/20 09:30 Urine Protein 30 mg/dL (NEGATIVE) H 10/03/20 09:30 Urine Glucose (UA) 500 mg/dL (NEGATIVE) H 10/03/20 09:30 Urine Ketones NEGATIVE mg/dL (NEGATIVE) 10/03/20 09:30 Urine Occult Blood SMALL (NEGATIVE) H 10/03/20 09:30 Urine Nitrite NEGATIVE (NEGATIVE) 10/03/20 09:30 Urine Bilirubin NEGATIVE (NEGATIVE) 10/03/20 09:30 Urine Urobilinogen 0.2 (NORMAL) E.U./dL (NORMAL) 10/03/20 09:30 Ur Leukocyte Esterase NEGATIVE (NEGATIVE) 10/03/20 09:30 Urine RBC 0-5 /HPF (0-5) 10/03/20 09:30 Urine WBC 0-3 /HPF (0-3) 10/03/20 09:30 Ur Squamous Epith Cells NONE SEEN (<= Few) 10/03/20 09:30 Urine Bacteria Rare /HPF (None Seen) 10/03/20 09:30 Urine Casts 0-2 Fine Granular /LPF 10/03/20 09:30 Urine Mucus Few Strands 10/03/20 09:30 Ur Microscopic Review INDICATED 10/03/20 09:30 Urine Culture Comments NOT INDICATED 10/03/20 09:30 Nasal Adenovirus (PCR) NOT DETECTED 10/03/20 09:41 Nasal B. parapertussis DNA (PCR) NOT DETECTED 10/03/20 09:41 Nasal Coronavir 229E PCR NOT DETECTED 10/03/20 09:41 Nasal Coronavir HKU1 PCR NOT DETECTED 10/03/20 09:41 Nasal Coronavir NL63 PCR NOT DETECTED 10/03/20 09:41 Nasal Coronavir OC43 PCR NOT DETECTED 10/03/20 09:41 Nasal Enterovir/Rhinovir PCR NOT DETECTED 10/03/20 09:41 Nasal Influenza B PCR NOT DETECTED 10/03/20 09:41 Nasal Influenza A PCR NOT DETECTED 10/03/20 09:41 Nasal Parainfluen 1 PCR NOT DETECTED 10/03/20 09:41 Nasal Parainfluen 2 PCR NOT DETECTED 10/03/20 09:41 Nasal Parainfluen 3 PCR NOT DETECTED 10/03/20 09:41 Nasal Parainfluen 4 PCR NOT DETECTED 10/03/20 09:41 Nasal RSV (PCR) NOT DETECTED 10/03/20 09:41 Nasal Screen MRSA (PCR) NEGATIVE (NEGATIVE) 10/04/20 00:05 Nasal B.pertussis DNA PCR NOT DETECTED 10/03/20 09:41 Nasal C.pneumoniae (PCR) NOT DETECTED 10/03/20 09:41 Tien Human Metapneumo PCR NOT DETECTED 10/03/20 09:41 Nasal M.pneumoniae (PCR) NOT DETECTED 10/03/20 09:41 Nasal SARS-CoV-2 (PCR) NOT DETECTED 10/03/20 09:41 Blood Type A POSITIVE 10/03/20 09:30 Blood Type Recheck A POSITIVE 10/03/20 09:00 Antibody Screen NEGATIVE 10/03/20 09:30
[2020-10-05] MEDS: ACETAMINOPHEN 325 MG TABLET PO PRN ×2 (16:45→21:12)
[2020-10-05] MEDS: PRAVASTATIN 40 MG TABLET PO SCH (20:28)
[2020-10-05] MEDS ORDERED: PRAVASTATIN 10 MG TABLET PO SCH (21:00)
[2020-10-05] MEDS: ZOLPIDEM 5 MG TABLET PO PRN (22:43)
[2020-10-06] MEDS: METOPROLOL TARTRATE 25 MG TABLET PO SCH (01:41)
[2020-10-06] MEDS: DEXTROSE 5%-0.9% NACL 1,000 ML IV SCH ×2 (02:54→20:44)
[2020-10-06] MEDS: SODIUM CHLORIDE FLUSH 0.9% 10 ML SYRINGE IVP SCH ×3 (04:48→17:37)
[2020-10-06] MEDS: SODIUM CHLORIDE FLUSH 0.9% 10 ML SYRINGE IVP PRN (04:48)
[2020-10-06 05:33] LABS: BASOPHILS % (AUTO) 0.1 %; EOSINOPHILS # (AUTO) 0.1 10^3/uL (0.0-0.7); EOSINOPHILS % (AUTO) 1.6 %; LYMPHOCYTES # (AUTO) 1.2 10^3/uL (1.5-3.5); LYMPHOCYTES % (AUTO) 16.3 %; MEAN CORPUSCULAR HEMOGLOBIN 29.6 pg (27.0-31.0); MEAN CORPUSCULAR VOLUME 89.9 fL (80.0-94.0); MEAN PLATELET VOLUME 9.7 fL (7.4-11.4); MONOCYTES # (AUTO) 0.5 10^3/uL (0.0-1.0); MONOCYTES % (AUTO) 6.4 %; NEUTROPHILS # (AUTO) 5.5 10^3/uL (1.5-6.6); NEUTROPHILS % (AUTO) 74.2 %; PLT - PLATELET COUNT 241 10^3/uL (130-450); RED BLOOD COUNT 4.05 10^6/uL (4.70-6.10); RED CELL DISTRIBUTION WIDTH 13.3 % (12.0-15.0); WHITE BLOOD COUNT 7.4 x10^3/uL (4.8-10.8)
[2020-10-06 05:54] LABS: CALCIUM 7.7 mg/dL (8.5-10.3)
[2020-10-06] MEDS ORDERED: BENZOCAINE/MENTHOL LOZENGE MM PRN (07:39)
[2020-10-06] MEDS: INSULIN ASPART 300 UNIT/3 ML PEN SUBQ SCH ×4 (08:18→20:56)
[2020-10-06] MEDS: ASPIRIN CHEW 81 MG TABLET PO SCH (08:30)
[2020-10-06] MEDS: LORATADINE 10 MG TABLET PO SCH (08:30)
[2020-10-06] MEDS: MULTIVITAMIN TABLET PO SCH (08:30)
[2020-10-06] MEDS: CLOPIDOGREL 75 MG TABLET PO SCH (08:30)
[2020-10-06] MEDS: METOPROLOL SUCCINATE 25 MG TABLET PO SCH (08:30)
[2020-10-06] MEDS: CEFEPIME 2 GM in SODIUM CHLORIDE 0.9% MINIBAG 100 ML IV SCH ×2 (08:31→20:45)
[2020-10-06] MEDS: PANTOPRAZOLE 40 MG TABLET PO SCH (12:19)
[2020-10-06] MEDS: amLODIPine 5 MG TABLET PO SCH (13:24)
[2020-10-06] MEDS: SENNA 8.6 MG TABLET PO SCH (13:57)
[2020-10-06] MEDS: DOCUSATE SODIUM 250 MG CAPSULE PO SCH (13:57)
[2020-10-06] MEDS: polyethylene glycoL 3350 17 GM PACKET PO SCH (13:59)
--- NOTE | 2020-10-06 15:20 | PROVIDER PROGRESS NOTE ---
Assessment/Plan - Problem List (1) Hemoptysis Assessment/Plan: Patient knows to watch for bleeding since he was put on Brilinta plus baby aspirin after his stent 1 month ago. During this admission he was changed to Plavix plus aspirin which had been the plan as an outpatient. We will continue to give the Plavix and aspirin, since he is so close to having had the stent, that stopping it currently for blood flecks seen in the sputum, would give him a high risk of stent closure. If he has carroll blood, then would stop the aspirin plus Plavix. He was not getting Lovenox sq or Heparin sq for DVT prophylaxis, we ordered SCDs We will order a sputum sample for culture to assure no bacteria are growing. (2) Acute respiratory failure with hypoxia Assessment/Plan: Patient had such severe decompensation that he needed intubation the night of admission, he was extubated yesterday morning. He is oxygenating well on oxygen supplemental per nasal cannula. Continue to treat his underlying infection, continue supplemental oxygen and wean to off to room air as tolerated, keeping O2 sats > 90%. He is working with PT and improving. His discharge will depend on when he can oxygenate well on room air, since he does not have a diagnosis that would qualify for a chronic home oxygen order. (3) CAP (community acquired pneumonia) Assessment/Plan: Continue to treat his infection; iv Cefepime was chosen since he had just been hospitalized at [facility], and not Ceftriaxone plus Azithromycin Will add Mucinex for pulmonary toilet, and probiotic, continue supplemental oxygen and wean to off to room air as tolerated, keeping O2 sats > 90%. 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 Continue statin and his cardiac meds (5) Diabetes Assessment/Plan: A1c was 8.4 He is on Carb-controlled diet and sliding scale insulin coverage (6) Hx of essential hypertension Assessment/Plan: Meeting his BP meds in a staggered fashion since he was hypotensive at admission (7) Hypomagnesemia Assessment/Plan: Resolved (8) Hypotension Assessment/Plan: Resolved (9) Sepsis Assessment/Plan: Resolved - Current Meds Current Meds: Current Medications Generic Name Dose Route Start Last Admin Trade Name Freq PRN Reason Stop Dose Admin Acetaminophen 650 mg 10/03/20 12:25 10/05/20 21:12 Acetaminophen 325 Mg Tablet PO 650 mg Q4HR PRN Administration Pain 1 to 4 Amlodipine Besylate 2.5 mg 10/06/20 13:00 10/06/20 13:24 Amlodipine 5 Mg Tablet PO 2.5 mg DAILY JEANNETTE Administration Aspirin 81 mg 10/03/20 13:00 10/06/20 08:30 Aspirin Chew 81 Mg Tablet PO 81 mg DAILY JEANNETTE Administration Clopidogrel Bisulfate 75 mg 10/04/20 09:00 10/06/20 08:30 Clopidogrel 75 Mg Tablet PO 75 mg DAILY JEANNETTE Administration Docusate Sodium 250 - 500 mg 10/06/20 14:00 10/06/20 13:57 Docusate Sodium 250 Mg Capsule PO 250 mg DAILY JEANNETTE Administration Cefepime HCl 2 gm/ Sodium 100 mls @ 200 mls/hr 10/04/20 21:00 10/06/20 09:15 Chloride IV Infused BID JEANNETTE Infusion Dextrose/Sodium Chloride 1,000 mls @ 60 mls/hr 10/04/20 13:00 10/06/20 02:54 D5ns IV 60 mls/hr .[id number] JEANNETTE Administration Insulin Aspart 2 - 10 unit 10/03/20 17:00 10/06/20 12:21 Insulin Aspart 300 Unit/3 Ml Pen SUBQ 6 unit 0800,1200,1700,2100 JEANNETTE Administration Protocol Loratadine 10 mg 10/06/20 09:00 10/06/20 08:30 Loratadine 10 Mg Tablet PO 10 mg DAILY JEANNETTE Administration Metoprolol Succinate 25 mg 10/06/20 09:00 10/06/20 08:30 Metoprolol Succinate 25 Mg Tablet PO 25 mg DAILY JEANNETTE Administration Multivitamins 1 tab 10/06/20 09:00 10/06/20 08:30 Multivitamin Tablet PO 1 tab DAILY JEANNETTE Administration Pantoprazole Sodium 40 mg 10/06/20 09:00 10/06/20 12:19 Pantoprazole 40 Mg Tablet PO 40 mg DAILY JEANNETTE Administration Polyethylene Glycol 17 gm 10/06/20 14:00 10/06/20 13:59 Polyethylene Glycol 3350 17 Gm Packet PO 17 gm DAILY JEANNETTE Administration Pravastatin Sodium 80 mg 10/05/20 21:00 10/05/20 20:28 Pravastatin 40 Mg Tablet PO 80 mg QPM JEANNETTE Administration Senna 8.6 - 17.2 mg 10/06/20 14:00 10/06/20 13:57 Senna 8.6 Mg Tablet PO 8.6 mg DAILY JEANNETTE Administration Sodium Chloride 10 ml 10/03/20 12:25 10/06/20 04:48 Sodium Chloride Flush 0.9% 10 Ml Syringe IVP 20 ml PRN PRN Administration NEEDED PER PROVIDER ORDERS Sodium Chloride 10 ml 10/03/20 17:00 10/06/20 08:30 Sodium Chloride Flush 0.9% 10 Ml Syringe IVP 10 ml 0100,0900,1700 JEANNETTE Administration Zolpidem Tartrate 5 mg 10/05/20 18:30 10/05/20 22:43 Zolpidem 5 Mg Tablet PO 5 mg QPM PRN Administration Insomnia - Lab Result Fish Bone Diagrams: 10/06/20 04:50 10/06/20 04:50 - Additional Planning My Orders: My Active Orders 10/05/20 18:30 Zolpidem [Ambien] 5 mg PO QPM PRN 10/05/20 21:00 Pravastatin [Pravachol] 80 mg PO QPM 10/06/20 07:39 Benzocaine/Menthol [Cepacol] 1 lozenge MM Q2HR PRN 10/06/20 09:00 Loratadine [Claritin] 10 mg PO DAILY Metoprolol Succinate [Toprol Xl] 25 mg PO DAILY Multivitamin [Theragran] 1 tab PO DAILY Pantoprazole [Protonix] 40 mg PO DAILY 10/06/20 Lunch DIET [Low Sodium Diet] [DIET] 10/06/20 13:00 amLODIPine [Norvasc] 2.5 mg PO DAILY 10/06/20 14:00 Docusate Sodium 250Mg Capsule [Colace 250Mg Capsule] 250 - 500 mg PO DAILY Senna [Senokot] 8.6 - 17.2 mg PO DAILY polyethylene glycoL 3350 [Miralax] 17 gm PO DAILY 10/06/20 15:00 CUL, RESPIRATORY [RM] Routine Subjective - Subjective Patient Reports: Feeling Better, Cough (Today was the first day he has made any sputum and he tells me that it was "blood-tinged". He knows to be aware of bleeding since he was put on Brilinta plus aspirin after his stent 1 month ago.) Objective Vital Signs: Vital Signs - 24 hr 10/05/20 10/05/20 10/05/20 16:00 21:00 22:43 Temperature 37.1 C Heart Rate [ Activity] Heart Rate [ 94 82 Monitoring electrodes] Heart Rate [ Supine] Respiratory 23 19 Rate Blood Pressure 139/87 H Blood Pressure 144/79 H [Left Brachial artery] Blood Pressure 150/81 H [Right Brachial artery] Blood Pressure [Supine] O2 Saturation 93 95 10/06/20 10/06/20 10/06/20 01:00 05:24 09:00 Temperature 37.1 C 37.0 C Heart Rate [ Activity] Heart Rate [ 72 80 87 Monitoring electrodes] Heart Rate [ Supine] Respiratory 16 15 24 Rate Blood Pressure Blood Pressure 153/81 H [Left Brachial artery] Blood Pressure 138/88 H 150/81 H [Right Brachial artery] Blood Pressure [Supine] O2 Saturation 97 95 95 10/06/20 10/06/20 11:15 13:00 Temperature 37.1 C Heart Rate [ 81 Activity] Heart Rate [ 82 Monitoring electrodes] Heart Rate [ 80 Supine] Respiratory 20 Rate Blood Pressure Blood Pressure [Left Brachial artery] Blood Pressure 164/79 H [Right Brachial artery] Blood Pressure 152/84 H [Supine] O2 Saturation 98 Oxygen O2 Source Nasal cannula I&O (Last 24 Hrs): Intake and Output Totals x24h 10/04/20 10/05/20 10/06/20 23:59 23:59 23:59 Intake Total 2515.254 3084.000 1010 Output Total 1455 3600 1450 Balance 1060.254 -516.000 -440 General: Alert, Oriented x3 HEENT: Mucous membr. moist/pink Neck: Supple, No JVD Neuro: Alert, Non Focal Cardiovascular: Regular rate, No murmurs Respiratory: No respiratory distress, Other (Diminished breath sounds left lateral base, no wheezes or rhonchi) Abdomen: Normal bowel sounds, Soft Extremities: No edema, No tenderness/swelling - Results Results: Laboratory Results WBC 7.4 x10^3/uL (4.8-10.8) 10/06/20 04:50 RBC 4.05 10^6/uL (4.70-6.10) L 10/06/20 04:50 Hgb 12.0 g/dL (14.0-18.0) L 10/06/20 04:50 Hct 36.4 % (42.0-52.0) L 10/06/20 04:50 MCV 89.9 fL (80.0-94.0) 10/06/20 04:50 MCH 29.6 pg (27.0-31.0) 10/06/20 04:50 MCHC 33.0 g/dL (32.0-36.0) 10/06/20 04:50 RDW 13.3 % (12.0-15.0) 10/06/20 04:50 Plt Count 241 10^3/uL (130-450) 10/06/20 04:50 MPV 9.7 fL (7.4-11.4) 10/06/20 04:50 Neut # (Auto) 5.5 10^3/uL (1.5-6.6) 10/06/20 04:50 Lymph # (Auto) 1.2 10^3/uL (1.5-3.5) L 10/06/20 04:50 [place] # (Auto) 0.5 10^3/uL (0.0-1.0) 10/06/20 04:50 Eos # (Auto) 0.1 10^3/uL (0.0-0.7) 10/06/20 04:50 Baso # (Auto) 0.0 10^3/uL (0.0-0.1) 10/06/20 04:50 Absolute Nucleated RBC 0.00 x10^3/uL 10/06/20 04:50 Total Counted 100 10/04/20 04:23 Band Neuts % (Manual) 8 % (0-10) 10/04/20 04:23 Abnorm Lymph % (Manual) 0 % 10/04/20 04:23 Nucleated RBC % 0.0 /100WBC 10/06/20 04:50 Neutrophils # (Manual) 10.0 10^3/uL (1.5-6.6) H 10/04/20 04:23 Lymphocytes # (Manual) 1.1 10^3/uL (1.5-3.5) L 10/04/20 04:23 Monocytes # (Manual) 1.3 10^3/uL (0.0-1.0) H 10/04/20 04:23 Eosinophils # (Manual) 0.1 10^3/uL (0-0.7) 10/04/20 04:23 Basophils # (Manual) 0.0 10^3/uL (0-0.1) 10/04/20 04:23 Differential Comment MANUAL DIFFERENTIAL 10/04/20 04:23 Platelet Estimate NORMAL (130-450,000) (NORMAL) 10/04/20 04:23 RBC Morph Micro Appear NORMAL APPEARANCE (NORMAL) 10/04/20 04:23 Bld Gas Analysis Time 93610/04/20 09:37 Sample Site LEFT RADIAL 10/04/20 09:37 ABG pH 7.39 (7.35-7.45) 10/04/20 09:37 ABG pCO2 30 mmHg (34-45) L 10/04/20 09:37 ABG pO2 81 mmHg (80-100) 10/04/20 09:37 ABG HCO3 17.4 mmol/L (22.0-26.0) L 10/04/20 09:37 ABG Total CO2 18.3 MMOL/L (21.0-29.0) L 10/04/20 09:37 ABG O2 Saturation 96 % (94-98) 10/04/20 09:37 ABG Oximetry Spot Check 97 % 10/04/20 09:37 ABG Base Excess -6.4 mmol/L (-2.0-3.0) L 10/04/20 09:37 [place] Test POSITIVE 10/04/20 09:37 Respiration Rate 27 b/min 10/04/20 09:37 O2 Delivery Device VENTILATOR 10/04/20 09:37 Vent Mode SIMV 10/04/20 09:37 FiO2 60.00 10/04/20 09:37 Tidal Volume 450 mL 10/04/20 09:37 PEEP 8 cmH2O 10/04/20 09:37 Pressure Support Vent 10 cmH2O 10/04/20 09:37 Sodium 140 mmol/L (135-145) 10/06/20 04:50 Potassium 3.4 mmol/L (3.5-5.0) L 10/06/20 04:50 Chloride 108 mmol/L (101-111) 10/06/20 04:50 Carbon Dioxide 23 mmol/L (21-32) 10/06/20 04:50 Anion Gap 9.0 (6-13) 10/06/20 04:50 BUN 23 mg/dL (6-20) H 10/06/20 04:50 Creatinine 1.0 mg/dL (0.6-1.2) 10/06/20 04:50 Estimated GFR (MDRD) 72 (>89) L 10/06/20 04:50 Glucose 201 mg/dL (70-100) H 10/06/20 04:50 POC Whole Bld Glucose 229 mg/dL (70 - 100) H 10/06/20 11:49 Estimat Average Glucose 194 mg/dL (70-100) H 10/04/20 04:23 Hemoglobin A1c % 8.4 % (4.27-6.07) H 10/04/20 04:23 Lactic Acid 1.3 mmol/L (0.5-2.2) 10/04/20 04:23 Calcium 7.7 mg/dL (8.5-10.3) L 10/06/20 04:50 Phosphorus 2.4 mg/dL (2.5-4.6) L 10/05/20 04:40 Magnesium 1.9 mg/dL (1.7-2.8) 10/05/20 04:40 Total Bilirubin 0.6 mg/dL (0.2-1.0) 10/03/20 08:50 AST 36 IU/L (10-42) 10/03/20 08:50 ALT 24 IU/L (10-60) 10/03/20 08:50 Alkaline Phosphatase 65 IU/L (42-121) 10/03/20 08:50 Troponin I High Sens 41.1 ng/L (2.3-19.7) H* 10/04/20 13:07 C-Reactive Protein 18.0 mg/dL (0-1.0) H 10/06/20 04:50 B-Natriuretic Peptide 598 pg/mL (5-100) H 10/03/20 00:12 Total Protein 7.4 g/dL (6.7-8.2) 10/03/20 08:50 Albumin 2.4 g/dL (3.2-5.5) L 10/05/20 04:40 Globulin 3.7 g/dL (2.1-4.2) 10/03/20 08:50 Albumin/Globulin Ratio 1.0 (1.0-2.2) 10/03/20 08:50 Lipase 25 U/L (22-51) 10/03/20 08:50 Urine Color DARK YELLOW 10/03/20 09:30 Urine Clarity CLEAR (CLEAR) 10/03/20 09:30 Urine pH 5.5 PH (5.0-7.5) 10/03/20 09:30 Ur Specific [place] 1.025 (1.002-1.030) 10/03/20 09:30 Urine Protein 30 mg/dL (NEGATIVE) H 10/03/20 09:30 Urine Glucose (UA) 500 mg/dL (NEGATIVE) H 10/03/20 09:30 Urine Ketones NEGATIVE mg/dL (NEGATIVE) 10/03/20 09:30 Urine Occult Blood SMALL (NEGATIVE) H 10/03/20 09:30 Urine Nitrite NEGATIVE (NEGATIVE) 10/03/20 09:30 Urine Bilirubin NEGATIVE (NEGATIVE) 10/03/20 09:30 Urine Urobilinogen 0.2 (NORMAL) E.U./dL (NORMAL) 10/03/20 09:30 Ur Leukocyte Esterase NEGATIVE (NEGATIVE) 10/03/20 09:30 Urine RBC 0-5 /HPF (0-5) 10/03/20 09:30 Urine WBC 0-3 /HPF (0-3) 10/03/20 09:30 Ur Squamous Epith Cells NONE SEEN (<= Few) 10/03/20 09:30 Urine Bacteria Rare /HPF (None Seen) 10/03/20 09:30 Urine Casts 0-2 Fine Granular /LPF 10/03/20 09:30 Urine Mucus Few Strands 10/03/20 09:30 Ur Microscopic Review INDICATED 10/03/20 09:30 Urine Culture Comments NOT INDICATED 10/03/20 09:30 Nasal Adenovirus (PCR) NOT DETECTED 10/03/20 09:41 Nasal B. parapertussis DNA (PCR) NOT DETECTED 10/03/20 09:41 Nasal Coronavir 229E PCR NOT DETECTED 10/03/20 09:41 Nasal Coronavir HKU1 PCR NOT DETECTED 10/03/20 09:41 Nasal Coronavir NL63 PCR NOT DETECTED 10/03/20 09:41 Nasal Coronavir OC43 PCR NOT DETECTED 10/03/20 09:41 Nasal Enterovir/Rhinovir PCR NOT DETECTED 10/03/20 09:41 Nasal Influenza B PCR NOT DETECTED 10/03/20 09:41 Nasal Influenza A PCR NOT DETECTED 10/03/20 09:41 Nasal Parainfluen 1 PCR NOT DETECTED 10/03/20 09:41 Nasal Parainfluen 2 PCR NOT DETECTED 10/03/20 09:41 Nasal Parainfluen 3 PCR NOT DETECTED 10/03/20 09:41 Nasal Parainfluen 4 PCR NOT DETECTED 10/03/20 09:41 Nasal RSV (PCR) NOT DETECTED 10/03/20 09:41 Nasal Screen MRSA (PCR) NEGATIVE (NEGATIVE) 10/04/20 00:05 Nasal B.pertussis DNA PCR NOT DETECTED 10/03/20 09:41 Nasal C.pneumoniae (PCR) NOT DETECTED 10/03/20 09:41 Tien Human Metapneumo PCR NOT DETECTED 10/03/20 09:41 Nasal M.pneumoniae (PCR) NOT DETECTED 10/03/20 09:41 Nasal SARS-CoV-2 (PCR) NOT DETECTED 10/03/20 09:41 Blood Type A POSITIVE 10/03/20 09:30 Blood Type Recheck A POSITIVE 10/03/20 09:00 Antibody Screen NEGATIVE 10/03/20 09:30
[2020-10-06] MEDS: SACCHAROMYCES BOULARDII 250 MG CAPSULE PO SCH (17:36)
[2020-10-06] MEDS: ZOLPIDEM 5 MG TABLET PO PRN (20:49)
[2020-10-06] MEDS: guaiFENesin 600 MG TABLET PO SCH (20:49)
[2020-10-06] MEDS: PRAVASTATIN 40 MG TABLET PO SCH (20:49)
[2020-10-07] MEDS: SODIUM CHLORIDE FLUSH 0.9% 10 ML SYRINGE IVP SCH ×4 (04:53→20:24)
[2020-10-07] MEDS: SODIUM CHLORIDE FLUSH 0.9% 10 ML SYRINGE IVP PRN ×2 (04:53→20:25)
[2020-10-07 05:27] LABS: BASOPHILS % (AUTO) 0.5 %; EOSINOPHILS % (AUTO) 2.8 %; HGB - HEMOGLOBIN 11.7 g/dL (14.0-18.0); LYMPHOCYTES % (AUTO) 23.4 %; MEAN CORPUSCULAR HGB CONC 32.7 g/dL (32.0-36.0); MEAN CORPUSCULAR VOLUME 88.6 fL (80.0-94.0); MEAN PLATELET VOLUME 9.7 fL (7.4-11.4); MONOCYTES % (AUTO) 6.7 %; NEUTROPHILS % (AUTO) 65.1 %; PLT - PLATELET COUNT 272 10^3/uL (130-450); RED BLOOD COUNT 4.04 10^6/uL (4.70-6.10); WHITE BLOOD COUNT 6.1 x10^3/uL (4.8-10.8)
[2020-10-07 05:48] LABS: CALCIUM 7.8 mg/dL (8.5-10.3); CREATININE 0.8 mg/dL (0.6-1.2); CRP - C-REACTIVE PROTEIN 10.6 mg/dL (0-1.0)
[2020-10-07 05:50] LABS: ABNORMAL LYMPHS % (MANUAL) 0 %; BAND NEUTROPHILS % (MANUAL) 0 %
[2020-10-07 06:12] LABS: EOSINOPHILS # (MANUAL) 0.1 10^3/uL (0-0.7); LYMPHOCYTES # (MANUAL) 1.1 10^3/uL (1.5-3.5); LYMPHOCYTES % (MANUAL) 18 %; MONOCYTES # (MANUAL) 0.4 10^3/uL (0.0-1.0)
[2020-10-07 06:15] LABS: DIFFERENTIAL COMMENT MANUAL DIFFERENTIAL; PLATELET ESTIMATE, MANUAL NORMAL (130-450,000) (NORMAL); PLATELET MORPHOLOGY NORMAL APPEARANCE (NORMAL); RBC MORPHOLOGY (MULTIPLE) NORMAL APPEARANCE (NORMAL)
[2020-10-07] MEDS: SACCHAROMYCES BOULARDII 250 MG CAPSULE PO SCH ×2 (08:25→17:16)
[2020-10-07] MEDS: CEFEPIME 2 GM in SODIUM CHLORIDE 0.9% MINIBAG 100 ML IV SCH ×2 (08:26→20:20)
[2020-10-07] MEDS: amLODIPine 5 MG TABLET PO SCH (08:26)
[2020-10-07] MEDS: ASPIRIN CHEW 81 MG TABLET PO SCH (08:26)
[2020-10-07] MEDS: guaiFENesin 600 MG TABLET PO SCH ×2 (08:26→20:20)
[2020-10-07] MEDS: MULTIVITAMIN TABLET PO SCH (08:26)
[2020-10-07] MEDS: CLOPIDOGREL 75 MG TABLET PO SCH (08:26)
[2020-10-07] MEDS: LORATADINE 10 MG TABLET PO SCH (08:26)
[2020-10-07] MEDS: METOPROLOL SUCCINATE 25 MG TABLET PO SCH (08:26)
[2020-10-07] MEDS: PANTOPRAZOLE 40 MG TABLET PO SCH (08:26)
[2020-10-07] MEDS: polyethylene glycoL 3350 17 GM PACKET PO SCH (08:30)
[2020-10-07] MEDS: DOCUSATE SODIUM 250 MG CAPSULE PO SCH (08:30)
[2020-10-07] MEDS: SENNA 8.6 MG TABLET PO SCH (08:30)
[2020-10-07] MEDS: INSULIN ASPART 300 UNIT/3 ML PEN SUBQ SCH ×4 (08:31→20:24)
--- NOTE | 2020-10-07 13:08 | PROVIDER PROGRESS NOTE ---
Assessment/Plan - Problem List (1) Hemoptysis Assessment/Plan: He started having blood-tinged hemoptysis yesterday. Yesterday a sputum sample was obtained and sent for culture. Today he has frankly bloody sputum. Even though he is off supplemental oxygen and on room air, he cannot be discharged because of this new clinical finding. We will follow his hemoglobin every 12 hours, transfuse if he goes under 7. Cannot stop his daily Plavix plus Aspirin because he just had his coronary stent placed 1 month ago. Stopping it would give him very high risk for in-stent thrombosis. The patient was told of the risks and benefits with continuing Plavix and the above plan and reasons. If he has more severe hemorrhage, he may need to be transferred for bronchoscopy. (2) CAP (community acquired pneumonia) Assessment/Plan: He started having a cough yesterday (after being rehydrated probably) with blood-tinged hemoptysis seen (by me)yesterday. Yesterday a sputum sample was obtained and sent for culture. He is off supplemental O2, has a cough with sputum production, and remains on iv antibx. Cont Mucinex. Await sputum cx results (but it was sent after being on empiric antibx for about 3 days, so may not have growth). Add IS. (3) Status post insertion of drug-eluting stent into left anterior descending (LAD) artery for coronary artery disease Assessment/Plan: As above in #1. Resuming Imdur today. Continuing his statin (4) Diabetes Assessment/Plan: A1c was 8.4, not good control His oral diabetic meds have been on hold. He is on carb controlled diet and sliding scale insulin coverage. (5) Anemia Assessment/Plan: Hemoglobin at admission was about 5, dropped and has plateaued at 11.5 - 12. Presumably this is from hemodilution plus the new hemoptysis We will follow his hemoglobin every 12 hours, transfuse if he goes under 7. (6) Hypokalemia Assessment/Plan: Will replace. Follow BMP daily (7) HTN (hypertension) Assessment/Plan: Hypotension has resolved. We are resuming his blood pressure medications one by 1 in a staggered fashion (8) Acute respiratory failure with hypoxia Assessment/Plan: Resolved. He had been on a ventilator for 2 days, then nasal cannula at 4 L, has been weaned down to room air today. (9) Sepsis Assessment/Plan: Resolved (10) Hypotension Assessment/Plan: Resolved. (11) Hypomagnesemia Assessment/Plan: Magnesium was replaced and hypomagnesemia has resolved - Current Meds Current Meds: Current Medications Generic Name Dose Route Start Last Admin Trade Name Freq PRN Reason Stop Dose Admin Acetaminophen 650 mg 10/03/20 12:25 10/05/20 21:12 Acetaminophen 325 Mg Tablet PO 650 mg Q4HR PRN Administration Pain 1 to 4 Amlodipine Besylate 2.5 mg 10/06/20 13:00 10/07/20 08:26 Amlodipine 5 Mg Tablet PO 2.5 mg DAILY JEANNETTE Administration Aspirin 81 mg 10/03/20 13:00 10/07/20 08:26 Aspirin Chew 81 Mg Tablet PO 81 mg DAILY JEANNETTE Administration Clopidogrel Bisulfate 75 mg 10/04/20 09:00 10/07/20 08:26 Clopidogrel 75 Mg Tablet PO 75 mg DAILY JEANNETTE Administration Docusate Sodium 250 - 500 mg 10/06/20 14:00 10/07/20 08:30 Docusate Sodium 250 Mg Capsule PO Not Given DAILY JEANNETTE Guaifenesin 600 mg 10/06/20 21:00 10/07/20 08:26 Guaifenesin 600 Mg Tablet PO 600 mg BID JEANNETTE Administration Cefepime HCl 2 gm/ Sodium 100 mls @ 200 mls/hr 10/04/20 21:00 10/07/20 09:59 Chloride IV 10/12/20 20:59 Infused BID JEANNETTE Infusion Dextrose/Sodium Chloride 1,000 mls @ 60 mls/hr 10/04/20 13:00 10/06/20 20:44 D5ns IV 60 mls/hr .[id number] JEANNETTE Administration Insulin Aspart 3 - 11 unit 10/06/20 21:00 10/07/20 12:32 Insulin Aspart 300 Unit/3 Ml Pen SUBQ 7 unit 0800,1200,1700,2100 JEANNETTE Administration Protocol Loratadine 10 mg 10/06/20 09:00 10/07/20 08:26 Loratadine 10 Mg Tablet PO 10 mg DAILY JEANNETTE Administration Metoprolol Succinate 25 mg 10/06/20 09:00 10/07/20 08:26 Metoprolol Succinate 25 Mg Tablet PO 25 mg DAILY JEANNETTE Administration Multivitamins 1 tab 10/06/20 09:00 10/07/20 08:26 Multivitamin Tablet PO 1 tab DAILY JEANNETTE Administration Pantoprazole Sodium 40 mg 10/06/20 09:00 10/07/20 08:26 Pantoprazole 40 Mg Tablet PO 40 mg DAILY JEANNETTE Administration Polyethylene Glycol 17 gm 10/06/20 14:00 10/07/20 08:30 Polyethylene Glycol 3350 17 Gm Packet PO Not Given DAILY JEANNETTE Pravastatin Sodium 80 mg 10/05/20 21:00 10/06/20 20:49 Pravastatin 40 Mg Tablet PO 80 mg QPM JEANNETTE Administration Saccharomyces Boulardii 250 mg 10/06/20 17:00 10/07/20 08:25 Saccharomyces Boulardii 250 Mg Capsule PO 250 mg BIDWM JEANNETTE Administration Senna 8.6 - 17.2 mg 10/06/20 14:00 10/07/20 08:30 Senna 8.6 Mg Tablet PO Not Given DAILY JEANNETTE Sodium Chloride 10 ml 10/03/20 12:25 10/07/20 04:53 Sodium Chloride Flush 0.9% 10 Ml Syringe IVP 20 ml PRN PRN Administration NEEDED PER PROVIDER ORDERS Sodium Chloride 10 ml 10/03/20 17:00 10/07/20 08:34 Sodium Chloride Flush 0.9% 10 Ml Syringe IVP 10 ml 0100,0900,1700 JEANNETTE Administration Zolpidem Tartrate 5 mg 10/05/20 18:30 10/06/20 20:49 Zolpidem 5 Mg Tablet PO 5 mg QPM PRN Administration Insomnia - Lab Result Fish Bone Diagrams: 10/07/20 04:51 10/07/20 04:51 - Additional Planning My Orders: My Active Orders 10/06/20 13:00 amLODIPine [Norvasc] 2.5 mg PO DAILY 10/06/20 14:00 Docusate Sodium 250Mg Capsule [Colace 250Mg Capsule] 250 - 500 mg PO DAILY Senna [Senokot] 8.6 - 17.2 mg PO DAILY polyethylene glycoL 3350 [Miralax] 17 gm PO DAILY 10/06/20 15:05 CUL, RESPIRATORY [RM] Routine 10/06/20 17:00 Saccharomyces Boulardii [Florastor] 250 mg PO BIDWM 10/06/20 17:38 Blood Glucose Checks - Eating [RC] 0800,1200,1700,2100 Initiate Hypoglycemia Protocol [RC] .protocol 10/06/20 21:00 Insulin Aspart [NovoLOG] 3 - 11 unit SUBQ 0800,1200,1700,2100 guaiFENesin [Mucinex] 600 mg PO BID Subjective - Subjective Patient Reports: Feeling Better, Resting Comfortably, Other (Has even more bloody hemoptysis today) Objective Vital Signs: Vital Signs - 24 hr 10/06/20 10/06/20 10/06/20 16:35 17:00 18:14 Temperature 37.1 C Heart Rate [ 79 84 Monitoring electrodes] Respiratory 26 H 17 Rate Blood Pressure [Left Brachial artery] Blood Pressure 130/79 140/74 H [Right Brachial artery] O2 Saturation 93 10/06/20 10/07/20 10/07/20 21:00 01:53 04:28 Temperature 37 C 37.1 C Heart Rate [ 81 77 79 Monitoring electrodes] Respiratory 23 24 20 Rate Blood Pressure 158/82 H [Left Brachial artery] Blood Pressure 153/76 H 153/85 H [Right Brachial artery] O2 Saturation 92 95 93 10/07/20 10/07/20 10/07/20 08:00 08:38 12:36 Temperature 36.5 C 36.9 C Heart Rate [ 77 78 Monitoring electrodes] Respiratory 23 16 14 Rate Blood Pressure [Left Brachial artery] Blood Pressure 139/79 H 152/73 H [Right Brachial artery] O2 Saturation 92 93 95 Oxygen O2 Source Room air I&O (Last 24 Hrs): Intake and Output Totals x24h 10/05/20 10/06/20 10/07/20 23:59 23:59 23:59 Intake Total 3084.000 2350 700 Output Total 3600 2000 675 Balance -516.000 350 25 General: Alert, Oriented x3 HEENT: Mucous membr. moist/pink, Other (Nasal cannula supplemental oxygen is off) Neck: Supple, No JVD Neuro: Alert, Non Focal Cardiovascular: Regular rate Respiratory: No respiratory distress, Rales (Posterior basal rales (yesterday this area was dense with no breath sounds present)) Abdomen: Soft Extremities: No edema - Results Results: Laboratory Results WBC 6.1 x10^3/uL (4.8-10.8) 10/07/20 04:51 RBC 4.04 10^6/uL (4.70-6.10) L 10/07/20 04:51 Hgb 11.7 g/dL (14.0-18.0) L 10/07/20 04:51 Hct 35.8 % (42.0-52.0) L 10/07/20 04:51 MCV 88.6 fL (80.0-94.0) 10/07/20 04:51 MCH 29.0 pg (27.0-31.0) 10/07/20 04:51 MCHC 32.7 g/dL (32.0-36.0) 10/07/20 04:51 RDW 13.0 % (12.0-15.0) 10/07/20 04:51 Plt Count 272 10^3/uL (130-450) 10/07/20 04:51 MPV 9.7 fL (7.4-11.4) 10/07/20 04:51 Neut # (Auto) Not Reportable 10/07/20 04:51 Lymph # (Auto) Not Reportable 10/07/20 04:51 [place] # (Auto) Not Reportable 10/07/20 04:51 Eos # (Auto) Not Reportable 10/07/20 04:51 Baso # (Auto) Not Reportable 10/07/20 04:51 Absolute Nucleated RBC Not Reportable 10/07/20 04:51 Total Counted 100 10/07/20 04:51 Band Neuts % (Manual) 0 % (0-10) 10/07/20 04:51 Abnorm Lymph % (Manual) 0 % 10/07/20 04:51 Nucleated RBC % Not Reportable 10/07/20 04:51 Neutrophils # (Manual) 4.5 10^3/uL (1.5-6.6) 10/07/20 04:51 Lymphocytes # (Manual) 1.1 10^3/uL (1.5-3.5) L 10/07/20 04:51 Monocytes # (Manual) 0.4 10^3/uL (0.0-1.0) 10/07/20 04:51 Eosinophils # (Manual) 0.1 10^3/uL (0-0.7) 10/07/20 04:51 Basophils # (Manual) 0.0 10^3/uL (0-0.1) 10/07/20 04:51 Differential Comment MANUAL DIFFERENTIAL 10/07/20 04:51 WBC Morphology NORMAL APPEARANCE (NORMAL) 10/07/20 04:51 Platelet Estimate NORMAL (130-450,000) (NORMAL) 10/07/20 04:51 Platelet Morphology NORMAL APPEARANCE (NORMAL) 10/07/20 04:51 RBC Morph Micro Appear NORMAL APPEARANCE (NORMAL) 10/07/20 04:51 Bld Gas Analysis Time 0937 10/04/20 09:37 Sample Site LEFT RADIAL 10/04/20 09:37 ABG pH 7.39 (7.35-7.45) 10/04/20 09:37 ABG pCO2 30 mmHg (34-45) L 10/04/20 09:37 ABG pO2 81 mmHg (80-100) 10/04/20 09:37 ABG HCO3 17.4 mmol/L (22.0-26.0) L 10/04/20 09:37 ABG Total CO2 18.3 MMOL/L (21.0-29.0) L 10/04/20 09:37 ABG O2 Saturation 96 % (94-98) 10/04/20 09:37 ABG Oximetry Spot Check 97 % 10/04/20 09:37 ABG Base Excess -6.4 mmol/L (-2.0-3.0) L 10/04/20 09:37 [place]u Test POSITIVE 10/04/20 09:37 Respiration Rate 27 b/min 10/04/20 09:37 O2 Delivery Device VENTILATOR 10/04/20 09:37 Vent Mode SIMV 10/04/20 09:37 FiO2 60.00 10/04/20 09:37 Tidal Volume 450 mL 10/04/20 09:37 PEEP 8 cmH2O 10/04/20 09:37 Pressure Support Vent 10 cmH2O 10/04/20 09:37 Sodium 136 mmol/L (135-145) 10/07/20 04:51 Potassium 3.3 mmol/L (3.5-5.0) L 10/07/20 04:51 Chloride 102 mmol/L (101-111) 10/07/20 04:51 Carbon Dioxide 25 mmol/L (21-32) 10/07/20 04:51 Anion Gap 9.0 (6-13) 10/07/20 04:51 BUN 20 mg/dL (6-20) 10/07/20 04:51 Creatinine 0.8 mg/dL (0.6-1.2) 10/07/20 04:51 Estimated GFR (MDRD) 93 (>89) 10/07/20 04:51 Glucose 227 mg/dL (70-100) H 10/07/20 04:51 POC Whole Bld Glucose 252 mg/dL (70 - 100) H 10/07/20 12:27 Estimat Average Glucose 194 mg/dL (70-100) H 10/04/20 04:23 Hemoglobin A1c % 8.4 % (4.27-6.07) H 10/04/20 04:23 Lactic Acid 1.3 mmol/L (0.5-2.2) 10/04/20 04:23 Calcium 7.8 mg/dL (8.5-10.3) L 10/07/20 04:51 Phosphorus 2.4 mg/dL (2.5-4.6) L 10/05/20 04:40 Magnesium 1.9 mg/dL (1.7-2.8) 10/05/20 04:40 Total Bilirubin 0.6 mg/dL (0.2-1.0) 10/03/20 08:50 AST 36 IU/L (10-42) 10/03/20 08:50 ALT 24 IU/L (10-60) 10/03/20 08:50 Alkaline Phosphatase 65 IU/L (42-121) 10/03/20 08:50 Troponin I High Sens 41.1 ng/L (2.3-19.7) H* 10/04/20 13:07 C-Reactive Protein 10.6 mg/dL (0-1.0) H 10/07/20 04:51 B-Natriuretic Peptide 598 pg/mL (5-100) H 10/03/20 00:12 Total Protein 7.4 g/dL (6.7-8.2) 10/03/20 08:50 Albumin 2.4 g/dL (3.2-5.5) L 10/05/20 04:40 Globulin 3.7 g/dL (2.1-4.2) 10/03/20 08:50 Albumin/Globulin Ratio 1.0 (1.0-2.2) 10/03/20 08:50 Lipase 25 U/L (22-51) 10/03/20 08:50 Urine Color DARK YELLOW 10/03/20 09:30 Urine Clarity CLEAR (CLEAR) 10/03/20 09:30 Urine pH 5.5 PH (5.0-7.5) 10/03/20 09:30 Ur Specific [place] 1.025 (1.002-1.030) 10/03/20 09:30 Urine Protein 30 mg/dL (NEGATIVE) H 10/03/20 09:30 Urine Glucose (UA) 500 mg/dL (NEGATIVE) H 10/03/20 09:30 Urine Ketones NEGATIVE mg/dL (NEGATIVE) 10/03/20 09:30 Urine Occult Blood SMALL (NEGATIVE) H 10/03/20 09:30 Urine Nitrite NEGATIVE (NEGATIVE) 10/03/20 09:30 Urine Bilirubin NEGATIVE (NEGATIVE) 10/03/20 09:30 Urine Urobilinogen 0.2 (NORMAL) E.U./dL (NORMAL) 10/03/20 09:30 Ur Leukocyte Esterase NEGATIVE (NEGATIVE) 10/03/20 09:30 Urine RBC 0-5 /HPF (0-5) 10/03/20 09:30 Urine WBC 0-3 /HPF (0-3) 10/03/20 09:30 Ur Squamous Epith Cells NONE SEEN (<= Few) 10/03/20 09:30 Urine Bacteria Rare /HPF (None Seen) 10/03/20 09:30 Urine Casts 0-2 Fine Granular /LPF 10/03/20 09:30 Urine Mucus Few Strands 10/03/20 09:30 Ur Microscopic Review INDICATED 10/03/20 09:30 Urine Culture Comments NOT INDICATED 10/03/20 09:30 Nasal Adenovirus (PCR) NOT DETECTED 10/03/20 09:41 Nasal B. parapertussis DNA (PCR) NOT DETECTED 10/03/20 09:41 Nasal Coronavir 229E PCR NOT DETECTED 10/03/20 09:41 Nasal Coronavir HKU1 PCR NOT DETECTED 10/03/20 09:41 Nasal Coronavir NL63 PCR NOT DETECTED 10/03/20 09:41 Nasal Coronavir OC43 PCR NOT DETECTED 10/03/20 09:41 Nasal Enterovir/Rhinovir PCR NOT DETECTED 10/03/20 09:41 Nasal Influenza B PCR NOT DETECTED 10/03/20 09:41 Nasal Influenza A PCR NOT DETECTED 10/03/20 09:41 Nasal Parainfluen 1 PCR NOT DETECTED 10/03/20 09:41 Nasal Parainfluen 2 PCR NOT DETECTED 10/03/20 09:41 Nasal Parainfluen 3 PCR NOT DETECTED 10/03/20 09:41 Nasal Parainfluen 4 PCR NOT DETECTED 10/03/20 09:41 Nasal RSV (PCR) NOT DETECTED 10/03/20 09:41 Nasal Screen MRSA (PCR) NEGATIVE (NEGATIVE) 10/04/20 00:05 Nasal B.pertussis DNA PCR NOT DETECTED 10/03/20 09:41 Nasal C.pneumoniae (PCR) NOT DETECTED 10/03/20 09:41 Tien Human Metapneumo PCR NOT DETECTED 10/03/20 09:41 Nasal M.pneumoniae (PCR) NOT DETECTED 10/03/20 09:41 Nasal SARS-CoV-2 (PCR) NOT DETECTED 10/03/20 09:41 Blood Type A POSITIVE 10/03/20 09:30 Blood Type Recheck A POSITIVE 10/03/20 09:00 Antibody Screen NEGATIVE 10/03/20 09:30
[2020-10-07 17:33] LABS: HGB - HEMOGLOBIN 12.5 g/dL (14.0-18.0)
[2020-10-07] MEDS: PRAVASTATIN 40 MG TABLET PO SCH (20:20)
[2020-10-08] MEDS: SODIUM CHLORIDE FLUSH 0.9% 10 ML SYRINGE IVP PRN (04:47)
[2020-10-08 05:20] LABS: BASOPHILS % (AUTO) 0.3 %; EOSINOPHILS # (AUTO) 0.2 10^3/uL (0.0-0.7); EOSINOPHILS % (AUTO) 2.7 %; HGB - HEMOGLOBIN 12.1 g/dL (14.0-18.0); LYMPHOCYTES # (AUTO) 1.8 10^3/uL (1.5-3.5); LYMPHOCYTES % (AUTO) 28.7 %; MEAN CORPUSCULAR HEMOGLOBIN 29.2 pg (27.0-31.0); MEAN CORPUSCULAR HGB CONC 33.1 g/dL (32.0-36.0); MEAN CORPUSCULAR VOLUME 88.4 fL (80.0-94.0); MEAN PLATELET VOLUME 9.6 fL (7.4-11.4); MONOCYTES # (AUTO) 0.4 10^3/uL (0.0-1.0); MONOCYTES % (AUTO) 6.6 %; NEUTROPHILS # (AUTO) 3.7 10^3/uL (1.5-6.6); NEUTROPHILS % (AUTO) 60.2 %; PLT - PLATELET COUNT 303 10^3/uL (130-450); RED BLOOD COUNT 4.14 10^6/uL (4.70-6.10); RED CELL DISTRIBUTION WIDTH 13.1 % (12.0-15.0); WHITE BLOOD COUNT 6.2 x10^3/uL (4.8-10.8)
[2020-10-08 05:29] LABS: CALCIUM 8.1 mg/dL (8.5-10.3); CREATININE 0.8 mg/dL (0.6-1.2)
[2020-10-08] MEDS: DOCUSATE SODIUM 250 MG CAPSULE PO SCH (07:53)
[2020-10-08] MEDS: polyethylene glycoL 3350 17 GM PACKET PO SCH (07:54)
[2020-10-08] MEDS: SENNA 8.6 MG TABLET PO SCH (07:54)
[2020-10-08] MEDS: PANTOPRAZOLE 40 MG TABLET PO SCH (08:20)
[2020-10-08] MEDS: MULTIVITAMIN TABLET PO SCH (08:20)
[2020-10-08] MEDS: guaiFENesin 600 MG TABLET PO SCH (08:20)
[2020-10-08] MEDS: LORATADINE 10 MG TABLET PO SCH (08:20)
[2020-10-08] MEDS: METOPROLOL SUCCINATE 25 MG TABLET PO SCH (08:20)
[2020-10-08] MEDS: SACCHAROMYCES BOULARDII 250 MG CAPSULE PO SCH (08:20)
[2020-10-08] MEDS: ASPIRIN CHEW 81 MG TABLET PO SCH (08:20)
[2020-10-08] MEDS: CEFEPIME 2 GM in SODIUM CHLORIDE 0.9% MINIBAG 100 ML IV SCH (08:21)
[2020-10-08] MEDS: CLOPIDOGREL 75 MG TABLET PO SCH (08:21)
[2020-10-08] MEDS: amLODIPine 5 MG TABLET PO SCH (08:21)
[2020-10-08] MEDS: SODIUM CHLORIDE FLUSH 0.9% 10 ML SYRINGE IVP SCH (08:21)
[2020-10-08] MEDS: INSULIN ASPART 300 UNIT/3 ML PEN SUBQ SCH ×2 (08:24→12:00)
[2020-10-08] MEDS ORDERED: ISOSORBIDE MONONITRATE ER 30 MG TABLET PO SCH (09:00)
[2020-10-08 11:58] VITALS: BP 121/83
--- NOTE | 2020-10-08 12:38 | Discharge Plan ---
Discharge Plan Problem Reviewed?: Yes Disposition: Home, Self Care Condition: Fair Prescriptions: cefUROXime axetiL [Ceftin] 250 mg PO Q12H #10 tablet Lactobacillus Rhamnosus GG [Culturelle] 1 cap PO DAILY #5 capsule guaiFENesin [Mucinex] 600 mg PO DAILY #5 tablet Diet: Diabetic Activity Restrictions: Activity as Tolerated Shower Restrictions: No Assistance Devices: Walker Instruction Topics: Pneumonia Tx, ED Hemoptysis Health Concerns: You were admitted with a pneumonia, and it was so severe that your oxygen level was dangerously low, so you needed to be on a mechanical ventilator for 2 days, and sedated. The pneumonia continues to need several more days of oral antibiotics to complete treatment. A probiotic should be taken during these days also. Mucinex for bringing up the phlegm was also prescribed. The new prescriptions were sent to your [facility] pharmacy in [place]. Please watch how much blood is in your phlegm and sputum. If the bleeding is getting worse, call your [facility] or PCP for advice, or come to the ER. Resume all your usual medications that you took before hospitalization. Remember that you are no longer on Brilinta; now start taking Plavix 75 mg daily. Also follow the entire list of medications that is printed for you. Keep your appointment with your [facility] this coming Friday. Describe the bleeding that was in your sputum and that you had a severe pneumonia. After recently getting a cardiac stent, you qualify for cardiac rehab and your [facility] can give you a referral to attend to the cardiac rehab center here, called the [facility]". You should not get a Covid vaccination while you are being treated for an infection. The vaccination should be postponed until after the infection has cleared. Plan of Treatment: As above. Care Goals: Improvement in symptoms and stabilization are the goals. Assessment: The patient understands and is agreeable with the plan. Follow-Up Care: [facility] - Cardiac No Smoking: If you smoke, Please STOP! Call for help. Follow-up with: Ascencion Espinal MD [Primary Care Provider] -
--- NOTE | 2020-10-08 12:53 | DISCHARGE SUMMARY ---
Discharge Summary Admit Date: 10/03/20 Discharge Date: 10/08/20 Discharging Provider: Dr Bharati Geiger Primary Care Provider: Dr Ascencion Espinal Condition at Discharge: Fair Discharge Disposition: 01 Home, Self Care - HPI History of Present Illness: From the admission H&P of Mateusz Brewster NP: This is an 80 years old white male with a past medical history significant for hypertension, hyperlipidemia, CAD, recently got a heart stent, diabetic type 2, GERD, chronic hearing loss, osteoarthritis, who presented to the ER complaining of fever and shortness of breath. Patient report he had fever at home for 7 to 8 days, highest temperature was 101F. He also developed shortness of breathing. He denies any chest pain. He has had 5 recent COVID-19 tests which were all negative. Patient reported he had cardiac stent which was put in a months ago. Patient reported he called his Adult Education Professional, Dr. Manish Tate, and he agreed patient's Brilinta may be causing the shortness of breath and was to switched it to Plavix. In the ER after he finished chest CT imaging study, when he was told he has a possible mass in the chest xray, he "had a panic attack". He felt sharp chest pain rated 10/10 but the pain stopped after he was given pain medication. He has no more chest pain. In ER, patient is afebrile, tachypnic at 27 and slightly tachycardic at 97-103 in sinus rhythm. O2 sats are 94% on room air. Routine laboratory tests show patient had elevated WBC 17, elevated lactic acid 3.2, elevated creatinine 1.6 (baseline creatinine is 1.2), glucose 278, elevated anion gap 15, slightly elevated hs-troponin of 39, and CRP was very elevated at 38. Chest x-ray shows a large pneumonia in the left lung, and CT of the chest shows dense pneumonia of left upper lobe. Patient was advised ad mission to the Hospitalist team. I discussed his care goals with the patient; patient requests Full Code status. - HOSPITAL COURSE Hospital Course: (1) Acute respiratory failure with hypoxia His respiratory status deteriorated quickly: he desaturated to low 80's% despite supplemental oxygen started at 2L>> 4L then a rebreather mask at 50% was started. An ABG was done that showed pH 7.18, pCO2 47, pO2 68 on 50% FIO2, and bicarb 17 (a mixed respiratory and metabolic acidosis). He was intubated and put on a ventilator that first night. He was on a ventilator for 2 days, then extubated and required nasal cannula at 4 L. Supplemental oxygen was finally weaned down to room air before discharge. (2) Sepsis He was septic with elevated WBC, elevated CRP, tachycardia and acidosis. His underlying pulmonary infection was felt to be the cause. He was treated with iv fluids, and iv antibiotics. (3) Hypotension After he was intubated, his BP dropped to 90-105 systolic, presumably from volume depletion and the iv (Propofol) sedative used during mechanical ventilation. He had troponins checked which showed no acute DE. He underwent a CTA chest to rule out PE (especially since there had been severe chest pain at admission), and there was no pulmonary embolism seen. An Echo was done and showed normal chamber sizes, a low-normal LVEF of 50-55% and normal RV size and contractility. He was managed with IV hydration and holding his home BP meds. His BP improved by later that night. (4) CAP (community acquired pneumonia) He was COVID tested at admission and was again negative. He had no cough. He was started on empric iv . After extubation, he started having a cough (after being rehydrated probably) which showed blood-tinged sputum. A sputum sample was obtained and sent for culture (but it was sent after being on empiric antibiotics for about 3 days). We started Mucinex and added Incentive Spirometry. He was discharged to take several more days of oral Ceftin, a probiotic and Mucinex. (5) Hemoptysis He started having sputum with hemoptysis 2 days before discharge. Sputum had carroll blood the next day. This prolonged his hospitalization. Even though he was off supplemental oxygen and on room air, he could not be discharged because of this new clinical finding. We followed his hemoglobin every 12 hours. We could not stop his daily Plavix plus Aspirin because he just had a coronary stent placed 1 month ago, and stopping it would give him very high risk for in- stent thrombosis. The patient was told of the risks and benefits with continui ng Plavix and the above plan and reasons. If he had more severe hemorrhage, we planned transferred for bronchoscopy, but by the next day there was less blood in his sputum and he was discharged home with advice to seek medical attention if it worsens. (6) Status post insertion of drug-eluting stent into left anterior descending (LAD) artery for coronary artery disease As above in #5. After hypotension improved, we resumed Imdur. We continued his statin and transitioned Brillinta to Plavix and continued aspirin after extubation. (7) Diabetes Mellitus A1c was 8.4, indicating poor glucose control. His oral diabetic meds were on hold until he was put on carb controlled diet and we used sliding scale insulin coverage. (8) Hypertension Hypotension resolved with iv fluids and holding BP meds. We resumed his blood pressure medications in a staggered fashion. (9) Anemia Hemoglobin at admission was 14.9, it dropped and plateaued at 11.5-12. Presumably this was from hemodilution plus the new hemoptysis. At discharge, Hgb was 12.1. (10) Hypokalemia Related to inadequate intake. It was replaced. (11) Hypomagnesemia Magnesium was replaced and hypomagnesemia resolved. - ALLERGIES Allergies/Adverse Reactions: Allergies Allergy/AdvReac Type Severity Reaction Status Date / Time JT Inhibitors Allergy Severe Unknown Verified 10/03/20 08:31 clavulanic acid Allergy Severe Unknown Verified 10/03/20 08:31 [From Augmentin] citalopram Allergy Intermediate Unknown Verified 10/03/20 08:31 erythromycin base Allergy Intermediate Edema Verified 10/03/20 08:31 [Erythromycin Base] hydrochlorothiazide Allergy Mild Unknown Verified 10/03/20 08:31 Mwybjcu-Tbc-Fhr Reductase Allergy Mild Unknown Verified 10/03/20 08:31 Inhibitor Sulfa (Sulfonamide Allergy Mild Nausea Verified 10/03/20 08:31 Antibiotics) jane Allergy Unknown Verified 10/11/20 07:45 amoxicillin [From Augmentin] AdvReac Severe Anxiety Verified 10/04/20 12:38 myacin Allergy Unknown Uncoded 10/11/20 07:45 scotch broom Allergy Unknown Uncoded 10/11/20 07:45 - MEDICATIONS Home Medications: Ambulatory Orders Medication Instructions Recorded Confirmed Aspirin [Aspir 81] 81 mg PO DAILY 03/14/14 10/03/20 Metformin HCl 1,000 mg PO BID 03/14/14 10/03/20 Rosuvastatin Calcium [Crestor] 5 mg PO QPM 03/14/14 10/03/20 amLODIPine [Norvasc] 2.5 mg ORAL BID 04/26/16 10/03/20 Glimepiride 4 mg BID 05/10/18 10/03/20 Isosorbide Mononitrate [Isosorbide 30 mg PO DAILY 05/10/18 10/03/20 Mononitrate ER] Amiloride HCl 2.5 mg PO DAILY 11/06/18 10/03/20 Flaxseed Oil 1,000 mg PO DAILY 11/06/18 10/03/20 Metoprolol Tartrate 25 mg PO BID 11/06/18 10/03/20 Multivitamin [Theragran] 1 each PO DAILY 11/06/18 10/03/20 Clopidogrel [Plavix] 75 mg PO DAILY 10/03/20 10/03/20 Loratadine [Claritin] 10 mg PO DAILY 10/03/20 10/03/20 Pantoprazole [Protonix] 40 mg PO DAILY 10/03/20 10/03/20 Propylhexedrine [Benzedrex] 1 inh ALEN PRN PRN 10/03/20 10/03/20 Lactobacillus Rhamnosus GG 1 cap PO DAILY #5 capsule 10/08/20 [Culturelle] cefUROXime axetiL [Ceftin] 250 mg PO Q12H #10 tablet 10/08/20 guaiFENesin [Mucinex] 600 mg PO DAILY #5 tablet 10/08/20 - PHYSICAL EXAM AT DISCHARGE General Appearance: positive: No acute distress, Alert Eyes Bilateral: positive: Normal inspection, EOMI ENT: positive: ENT inspection nml, No signs of dehydration Neck: positive: Nml inspection, No JVD Respiratory: positive: No respiratory distress, Breath sounds nml Cardiovascular: positive: Regular rate & rhythm, No murmur Abdomen: positive: Non-tender, Nml bowel sounds, No distention Skin: positive: Warm, Dry Extremities: positive: Non-tender, No pedal edema Neurologic/Psychiatric: positive: Oriented x3 ([place], otherwise non-focal.) - LABS Result Diagrams: 10/08/20 04:47 10/08/20 04:47 - DIAGNOSTIC IMAGING Diagnostic Imaging Results: Final report reviewed - FOLLOW UP Follow Up: See PCP in 1-2 weeks for hospital follow-up. See Cardiology as per appointments. He qualifies for cardiac rehab at the [facility] here, if he gets referred. - TIME SPENT Time Spent in Discharge (Minutes): 60
== END 2020-10-08 14:10 | disposition home or self-care (01) | DRG 871 ==
LOC: ED 08:19 → MS2 12:25 → ICU 10-04 00:01
PROVIDERS: ADMIT Nurse Practitioner Gerontology; ATTEND Internal Medicine
PROC: 0BH17EZ Insertion of Endotracheal Airway into Trachea, Via Natural or Artificial Opening (ICD-10-PCS; 2020-10-03)
PROC: 02HV33Z Insertion of Infusion Device into Superior Vena Cava, Percutaneous Approach (ICD-10-PCS; 2020-10-03)
PROC: 5A1935Z Respiratory Ventilation, Less than 24 Consecutive Hours (ICD-10-PCS; principal; 2020-10-04)
DX: A41.9 Sepsis, unspecified organism (principal); J18.9 Pneumonia, unspecified organism; R65.20 Severe sepsis without septic shock; J96.01 Acute respiratory failure with hypoxia; R04.2 Hemoptysis; N17.9 Acute kidney failure, unspecified; I48.91 Unspecified atrial fibrillation; E87.2 Acidosis; E11.65 Type 2 diabetes mellitus with hyperglycemia; I95.9 Hypotension, unspecified; I10 Essential (primary) hypertension; D50.0 Iron deficiency anemia secondary to blood loss (chronic); E87.6 Hypokalemia; E83.42 Hypomagnesemia; E78.00 Pure hypercholesterolemia, unspecified; E78.5 Hyperlipidemia, unspecified; I25.10 Atherosclerotic heart disease of native coronary artery without angina pectoris; K21.9 Gastro-esophageal reflux disease without esophagitis; M19.90 Unspecified osteoarthritis, unspecified site; H91.90 Unspecified hearing loss, unspecified ear; Z95.5 Presence of coronary angioplasty implant and graft; Z79.82 Long term (current) use of aspirin; Z79.84 Long term (current) use of oral hypoglycemic drugs; Z79.899 Other long term (current) drug therapy
CPT/HCPCS: 36415; 36600; 71045; 71046; 71260; 71275; 80048; 80053; 81001; 82040; 82803; 83036; 83605; 83690; 83735; 83880; 84100; 84484; 85014; 85018; 85025; 86140; 86850; 86900; 86901; 87040; 87070; 87150; 87205; 87631; 93005; 93306; 94002; 94003; 96361; 96365; 96366; 96368; 96375; 96376; 97161; 97165; 97530; 99285; A9270; J0330; J1170; J1815; J3370; Q9967; 0202U; 81003; 87086; 94770

== ENCOUNTER 2020-10-12 09:15 | Outpatient (CLI) | payer MEDICARE | END 2020-10-12 09:16 | disposition home or self-care (01) | LOC: LAB.N 09:15 | PROVIDERS: ATTEND Family Medicine | DX: Z53.9 Procedure and treatment not carried out, unspecified reason (principal); R50.9 Fever, unspecified ==

== ENCOUNTER 2020-11-20 08:00 | Outpatient (CLI) | payer MEDICARE ==
[2020-11-20 12:53] LABS: BASOPHILS % (AUTO) 0.5 %; EOSINOPHILS # (AUTO) 0.1 10^3/uL (0.0-0.7); EOSINOPHILS % (AUTO) 2.8 %; HGB - HEMOGLOBIN 14.4 g/dL (14.0-18.0); LYMPHOCYTES # (AUTO) 1.6 10^3/uL (1.5-3.5); LYMPHOCYTES % (AUTO) 39.3 %; MEAN CORPUSCULAR HEMOGLOBIN 30.3 pg (27.0-31.0); MEAN CORPUSCULAR HGB CONC 33.5 g/dL (32.0-36.0); MEAN CORPUSCULAR VOLUME 90.5 fL (80.0-94.0); MEAN PLATELET VOLUME 9.9 fL (7.4-11.4); MONOCYTES # (AUTO) 0.4 10^3/uL (0.0-1.0); MONOCYTES % (AUTO) 10.8 %; NEUTROPHILS # (AUTO) 1.9 10^3/uL (1.5-6.6); NEUTROPHILS % (AUTO) 46.3 %; PLT - PLATELET COUNT 180 10^3/uL (130-450); RED BLOOD COUNT 4.75 10^6/uL (4.70-6.10); RED CELL DISTRIBUTION WIDTH 13.1 % (12.0-15.0)
[2020-11-20 13:49] LABS: CALCIUM 8.8 mg/dL (8.5-10.3); CREATININE 1.2 mg/dL (0.6-1.2)
[2020-11-20 14:19] LABS: ESTIMATED AVERAGE GLUCOSE 183 mg/dL (70-100)
== END 2020-11-20 23:59 | disposition home or self-care (01) ==
LOC: LAB.WCP 08:00
PROVIDERS: ATTEND Family Medicine
DX: E11.65 Type 2 diabetes mellitus with hyperglycemia (principal)
CPT/HCPCS: 36415; 80048; 83036; 85025

== ENCOUNTER 2020-11-20 09:59 | Outpatient (CLI) | payer MEDICARE ==
--- NOTE | 2020-11-20 10:49 | XRAY Report ---
PROCEDURE: Chest 2 View X-Ray INDICATIONS: BILATERAL PNEUMONIA TECHNIQUE: 2 view(s) of the chest. COMPARISON: Chest x-ray 10/04/2020, CT chest 10/04/2020 FINDINGS: Surgical changes and devices: Right-sided central venous catheter has been removed. Lungs and pleura: No pleural effusions or pneumothorax. There is minimal residual streaky opacities within the left base. Mediastinum: Mediastinal contours are normal. Heart size is normal. Bones and chest wall: No suspicious bony abnormalities. Soft tissues appear unremarkable. IMPRESSION: Marked interval improvement with minimal residual streaky opacities in the left base, mo st consistent with incomplete pneumonia resolution. Continued interval follow-up is recommended to do cument complete resolution. Reviewed by: Fern Junior MD on 11/20/2020 10:48 AM PDT Approved by: Fern Junior MD on 11/20/2020 10:48 AM PDT Station ID: [id number]
== END 2020-11-20 10:00 | disposition home or self-care (01) ==
LOC: DI.N 09:59
PROVIDERS: ATTEND Family Medicine
DX: R91.8 Other nonspecific abnormal finding of lung field (principal); E11.65 Type 2 diabetes mellitus with hyperglycemia
CPT/HCPCS: 36415; 80048; 83036; 85025

== ENCOUNTER 2021-02-12 07:36 | Outpatient (CLI) | payer MEDICARE ==
[2021-02-12 12:31] LABS: BASOPHILS % (AUTO) 0.5 %; EOSINOPHILS # (AUTO) 0.2 10^3/uL (0.0-0.7); EOSINOPHILS % (AUTO) 2.6 %; HCT - HEMATOCRIT 43.2 % (42.0-52.0); HGB - HEMOGLOBIN 14.5 g/dL (14.0-18.0); LYMPHOCYTES # (AUTO) 2.1 10^3/uL (1.5-3.5); MEAN CORPUSCULAR HEMOGLOBIN 29.7 pg (27.0-31.0); MEAN CORPUSCULAR HGB CONC 33.6 g/dL (32.0-36.0); MEAN CORPUSCULAR VOLUME 88.3 fL (80.0-94.0); MEAN PLATELET VOLUME 9.8 fL (7.4-11.4); MONOCYTES # (AUTO) 0.4 10^3/uL (0.0-1.0); MONOCYTES % (AUTO) 6.4 %; NEUTROPHILS # (AUTO) 3.4 10^3/uL (1.5-6.6); NEUTROPHILS % (AUTO) 55.2 %; PLT - PLATELET COUNT 203 10^3/uL (130-450); RED BLOOD COUNT 4.89 10^6/uL (4.70-6.10); RED CELL DISTRIBUTION WIDTH 12.3 % (12.0-15.0); WHITE BLOOD COUNT 6.1 x10^3/uL (4.8-10.8)
[2021-02-12 13:16] LABS: ESTIMATED AVERAGE GLUCOSE 203 mg/dL (70-100); HEMOGLOBIN A1c% 8.7 % (4.27-6.07)
[2021-02-12 13:29] LABS: MICROALBUMIN,URINE 1.6 mg/dL (0-300.0)
[2021-02-12 13:34] LABS: THYROID STIMULATING HORMONE 1.93 uIU/mL (0.34-5.60)
[2021-02-12 13:43] LABS: ALBUMIN 4.7 g/dL (3.2-5.5); ALBUMIN/GLOBULIN RATIO 1.7 (1.0-2.2); ALKALINE PHOSPHATASE 46 IU/L (42-121); ALT ALANINE AMINOTRANSFERASE 18 IU/L (10-60); AST ASPARTATE AMINOTRANSFERASE 21 IU/L (10-42); BILIRUBIN,TOTAL 0.6 mg/dL (0.2-1.0); BUN - BLOOD UREA NITROGEN 21 mg/dL (6-20); CALCIUM 9.6 mg/dL (8.5-10.3); CARBON DIOXIDE - CO2 25 mmol/L (21-32); CHLORIDE 104 mmol/L (101-111); CHOLESTEROL 132 mg/dL; GFR - MDRD 72 (>89); GLUCOSE 214 mg/dL (70-100); HDL CHOLESTEROL 44 mg/dL; LDL CHOLESTEROL,CALCULATED 64 mg/dL; LDL/HDL RATIO 1.5 (<3.6); POTASSIUM 4.2 mmol/L (3.5-5.0); SODIUM 141 mmol/L (135-145); TOTAL PROTEIN 7.4 g/dL (6.7-8.2); TRIGLYCERIDES 122 mg/dL; VLDL CHOLESTEROL 24 mg/dL
== END 2021-02-12 07:37 | disposition home or self-care (01) ==
LOC: LAB.N 07:36
PROVIDERS: ATTEND Family Medicine
DX: E78.5 Hyperlipidemia, unspecified (principal); K21.9 Gastro-esophageal reflux disease without esophagitis; I10 Essential (primary) hypertension; I25.10 Atherosclerotic heart disease of native coronary artery without angina pectoris; E11.65 Type 2 diabetes mellitus with hyperglycemia
CPT/HCPCS: 36415; 80053; 80061; 82043; 82570; 83036; 83721; 84443; 85025

== ENCOUNTER 2021-05-16 07:10 | Outpatient (CLI) | payer MEDICARE ==
[2021-05-16 12:02] LABS: CALCIUM 8.9 mg/dL (8.5-10.3); CREATININE 1.1 mg/dL (0.6-1.2); POTASSIUM 4.5 mmol/L (3.5-5.0)
[2021-05-16 12:32] LABS: ESTIMATED AVERAGE GLUCOSE 212 mg/dL (70-100)
== END 2021-05-16 07:11 | disposition home or self-care (01) ==
LOC: LAB.N 07:10
PROVIDERS: ATTEND Family Medicine
DX: E11.8 Type 2 diabetes mellitus with unspecified complications (principal)
CPT/HCPCS: 36415; 80048; 83036

== ENCOUNTER 2021-08-03 08:00 | Outpatient (CLI) | payer MEDICARE | END 2021-08-03 23:59 | disposition home or self-care (01) | LOC: LAB.N 08:00 | PROVIDERS: ATTEND Physician Assistant | DX: J01.90 Acute sinusitis, unspecified (principal); Z20.822 Contact with and (suspected) exposure to COVID-19 ==

== ENCOUNTER 2021-09-19 08:00 | Outpatient (CLI) | payer MEDICARE ==
[2021-09-19 12:05] LABS: CREATININE,URINE 84.8 mg/dL; MICROALBUMIN,URINE 1.1 mg/dL (0-300.0)
[2021-09-19 12:14] LABS: ALBUMIN 4.4 g/dL (3.2-5.5); ALBUMIN/GLOBULIN RATIO 1.5 (1.0-2.2); ALKALINE PHOSPHATASE 51 IU/L (42-121); ALT ALANINE AMINOTRANSFERASE 17 IU/L (10-60); AST ASPARTATE AMINOTRANSFERASE 18 IU/L (10-42); BILIRUBIN,TOTAL 0.6 mg/dL (0.2-1.0); BUN - BLOOD UREA NITROGEN 21 mg/dL (6-20); CALCIUM 9.1 mg/dL (8.5-10.3); CARBON DIOXIDE - CO2 26 mmol/L (21-32); CHLORIDE 104 mmol/L (101-111); CHOL/HDL RATIO 3.2 (<5.0); CHOLESTEROL 130 mg/dL; CREATININE 1.1 mg/dL (0.6-1.2); GFR - MDRD 64 (>89); GLUCOSE 193 mg/dL (70-100); HDL CHOLESTEROL 41 mg/dL; LDL CHOLESTEROL,CALCULATED 58 mg/dL; LDL/HDL RATIO 1.4 (<3.6); POTASSIUM 4.2 mmol/L (3.5-5.0); SODIUM 141 mmol/L (135-145); TOTAL PROTEIN 7.4 g/dL (6.7-8.2); TRIGLYCERIDES 155 mg/dL; VLDL CHOLESTEROL 31 mg/dL
[2021-09-19 12:16] LABS: ESTIMATED AVERAGE GLUCOSE 189 mg/dL (70-100); HEMOGLOBIN A1c% 8.2 % (4.27-6.07)
[2021-09-19 12:19] LABS: BASOPHILS % (AUTO) 0.5 %; EOSINOPHILS # (AUTO) 0.2 10^3/uL (0.0-0.7); EOSINOPHILS % (AUTO) 2.6 %; HCT - HEMATOCRIT 48.2 % (42.0-52.0); HGB - HEMOGLOBIN 15.6 g/dL (14.0-18.0); LYMPHOCYTES # (AUTO) 2.3 10^3/uL (1.5-3.5); LYMPHOCYTES % (AUTO) 37.5 %; MEAN CORPUSCULAR HEMOGLOBIN 28.8 pg (27.0-31.0); MEAN CORPUSCULAR HGB CONC 32.4 g/dL (32.0-36.0); MEAN CORPUSCULAR VOLUME 89.1 fL (80.0-94.0); MEAN PLATELET VOLUME 10.1 fL (7.4-11.4); MONOCYTES # (AUTO) 0.5 10^3/uL (0.0-1.0); MONOCYTES % (AUTO) 8.4 %; NEUTROPHILS # (AUTO) 3.1 10^3/uL (1.5-6.6); NEUTROPHILS % (AUTO) 50.7 %; PLT - PLATELET COUNT 198 10^3/uL (130-450); RED BLOOD COUNT 5.41 10^6/uL (4.70-6.10); RED CELL DISTRIBUTION WIDTH 13.1 % (12.0-15.0); WHITE BLOOD COUNT 6.2 x10^3/uL (4.8-10.8)
[2021-09-19 12:24] LABS: THYROID STIMULATING HORMONE 2.36 uIU/mL (0.34-5.60)
== END 2021-09-19 23:59 ==
LOC: LAB.WCP 08:00
PROVIDERS: ATTEND Family Medicine
DX: E78.5 Hyperlipidemia, unspecified (principal); I25.10 Atherosclerotic heart disease of native coronary artery without angina pectoris; E11.8 Type 2 diabetes mellitus with unspecified complications; I10 Essential (primary) hypertension
CPT/HCPCS: 36415; 80053; 80061; 82043; 82570; 83036; 83721; 84443; 85025

== ENCOUNTER 2021-12-18 07:04 | Outpatient (CLI) | payer MEDICARE ==
[2021-12-18 12:26] LABS: CALCIUM 9.3 mg/dL (8.5-10.3); CREATININE 1.1 mg/dL (0.6-1.2); POTASSIUM 4.2 mmol/L (3.5-5.0)
[2021-12-18 12:56] LABS: ESTIMATED AVERAGE GLUCOSE 200 mg/dL (70-100); HEMOGLOBIN A1c% 8.6 % (4.27-6.07)
[2021-12-18 13:13] LABS: CREATININE,URINE 71.6 mg/dL; MICROALBUM/CREATININE RATIO,UR 19.6 ug/mg (<30.0); MICROALBUMIN,URINE 1.4 mg/dL (0-300.0)
== END 2021-12-18 07:05 | disposition home or self-care (01) ==
LOC: LAB.N 07:04
PROVIDERS: ATTEND Family Medicine
DX: E11.8 Type 2 diabetes mellitus with unspecified complications (principal)
CPT/HCPCS: 36415; 80048; 82043; 82570; 83036

== ENCOUNTER 2021-12-26 09:23 | Outpatient (CLI) | payer MEDICARE ==
--- NOTE | 2021-12-26 10:26 | XRAY Report ---
PROCEDURE: Chest 2 View X-Ray INDICATIONS: Bilateral pneumonia TECHNIQUE: 2 view(s) of the chest. COMPARISON: None. FINDINGS: Surgical changes and devices: None. Lungs and pleura: No pleural effusions or pneumothorax. Lungs are clear. Mediastinum: Mediastinal contours are normal. Heart size is normal. Bones and chest wall: No suspicious bony abnormalities. Soft tissues appear unremarkable. IMPRESSION: No acute cardiopulmonary process demonstrated radiographically. Reviewed by: Chet Mercado MD on 12/26/2021 10:25 AM PDT Approved by: Chet Mercado MD on 12/26/2021 10:25 AM PDT Station ID: [id number]
== END 2021-12-26 09:24 | disposition home or self-care (01) ==
LOC: DI.N 09:23
PROVIDERS: ATTEND Family Medicine
DX: J18.9 Pneumonia, unspecified organism (principal)

== ENCOUNTER 2022-05-04 23:43 | Emergency (ER) | payer MEDICARE ==
--- NOTE | 2022-05-05 00:02 | ED Physician Documentation ---
PD HPI MALE - Stated complaint Stated Complaint: MALE - Chief complaint Chief Complaint: Abd Pain - History obtained from History obtained from: Patient - History of Present Illness Timing - onset: Enter time (14:00), Today Timing - details: Abrupt onset Associated symptoms: Dysuria, Urinary frequency, Hematuria Similar symptoms before: Has not had sx before Recently seen: Not recently seen - Additional information Additional information: burning dysuria, urinary frequency, sensation of incomplete voiding, and hematuria since 2 PM today. Denies h/o similar symptoms. Denies fever, pelvic/abdominal/back pain. Review of Systems Constitutional: denies: Fever, Chills, Fatigue, Sweats GI: denies: Abdominal Pain, Nausea, Vomiting : reports: Dysuria, Frequency, Hematuria. denies: Hesitancy, Unable to Void, Incontinent, Testicular pain Musculoskeletal: denies: Back pain PD PAST MEDICAL HISTORY - Past Medical History Cardiovascular: Hypertension, High cholesterol, Coronary artery disease, Atrial fibrillation Endocrine/Autoimmune: Type 2 diabetes GI: GERD HEENT: Chronic hearing loss Musculoskeletal: Osteoarthritis, Other - Past Surgical History Past Surgical History: Yes Ortho: Carpal Tunnel surgery Cardiovascular: Coronary stent Neuro: Other - Present Medications Home Medications: Ambulatory Orders Medication Instructions Recorded Confirmed Aspirin [Aspir 81] 81 mg PO DAILY 03/14/14 05/05/22 Metformin HCl 1,000 mg PO BID 03/14/14 05/05/22 Rosuvastatin Calcium [Crestor] 5 mg PO QPM 03/14/14 05/05/22 amLODIPine [Norvasc] 2.5 mg ORAL BID 04/26/16 05/05/22 Glimepiride 2 mg PO BID 05/10/18 05/05/22 Isosorbide Mononitrate [Isosorbide 30 mg PO DAILY 05/10/18 05/05/22 Mononitrate ER] Amiloride HCl 2.5 mg PO DAILY 11/06/18 05/05/22 Flaxseed Oil 1,000 mg PO DAILY 11/06/18 05/05/22 Metoprolol Tartrate 25 mg PO BID 11/06/18 05/05/22 Multivitamin [Theragran] 1 each PO DAILY 11/06/18 05/05/22 Loratadine [Claritin] 10 mg PO DAILY 10/03/20 05/05/22 Propylhexedrine [Benzedrex] 1 inh ALEN PRN PRN 10/03/20 05/05/22 Lactobacillus Rhamnosus GG 1 cap PO DAILY #5 capsule 10/08/20 05/05/22 [Culturelle] Nitrofurantoin [Macrobid] 100 mg PO BID #9 cap 05/05/22 - Allergies Allergies/Adverse Reactions: Allergies Allergy/AdvReac Type Severity Reaction Status Date / Time JT Inhibitors Allergy Severe Unknown Verified 05/04/22 23:52 clavulanic acid Allergy Severe Unknown Verified 05/04/22 23:52 [From Augmentin] citalopram Allergy Intermediate Unknown Verified 05/04/22 23:52 erythromycin base Allergy Intermediate Edema Verified 05/04/22 23:52 [Erythromycin Base] hydrochlorothiazide Allergy Mild Unknown Verified 05/04/22 23:52 Pzjokih-CHV-HgC Reductase Allergy Mild Unknown Verified 05/04/22 23:52 Inhibitor [Fjptnkx-Mvz-Wpc Reductase Inhibitor] Sulfa (Sulfonamide Allergy Mild Nausea Verified 05/04/22 23:52 Antibiotics) jane Allergy Unknown Verified 05/04/22 23:52 amoxicillin [From Augmentin] AdvReac Severe Anxiety Verified 05/04/22 23:52 myacin Allergy Unknown Uncoded 05/04/22 23:52 scotch broom Allergy Unknown Uncoded 05/04/22 23:52 - Social History Does the pt smoke?: No Smoking Status: Never smoker Does the pt drink ETOH?: No Does the pt have substance abuse?: No - Immunizations Immunizations are current?: No Immunizations: TDAP >10years/unknown - POLST Patient has POLST: Yes PD ED PE NORMAL - Vitals Vital signs reviewed: Yes - General General: Alert and oriented X 3, No acute distress, Well developed/nourished - Cardiac Cardiac: RRR, No murmur - Respiratory Respiratory: No respiratory distress, Clear bilaterally - Abdomen Abdomen: Soft, Non tender, Non distended - Back Back: No CVA TTP Results - Vitals Vitals: Oxygen O2 Source Room air - Labs Labs: Laboratory Tests 05/04/22 05/05/22 05/05/22 23:52 00:38 00:38 WBC 10.6 RBC 4.97 Hgb 15.0 Hct 44.5 MCV 89.5 MCH 30.2 MCHC 33.7 RDW 13.0 Plt Count 174 MPV 9.6 Neut # (Auto) 8.0 H Lymph # (Auto) 1.6 [place] # (Auto) 0.8 Eos # (Auto) 0.1 Baso # (Auto) 0.0 Absolute Nucleated RBC 0.00 Nucleated RBC % 0.0 Sodium 136 Potassium 3.8 Chloride 102 Carbon Dioxide 24 Anion Gap 10.0 BUN 25 H Creatinine 1.0 Estimated GFR (MDRD) 72 L Glucose 200 H Calcium 9.0 Urine Color RED/BLOODY Urine Clarity CLOUDY Urine pH 5.5 Ur Specific [place] 1.025 Urine Protein 30 H Urine Glucose (UA) >=1000 H Urine Ketones NEGATIVE Urine Occult Blood LARGE H Urine Nitrite NEGATIVE Urine Bilirubin NEGATIVE Urine Urobilinogen 0.2 (NORMAL) Ur Leukocyte Esterase NEGATIVE Urine RBC TNTC H Urine WBC 0-3 Ur Squamous Epith Cells NONE SEEN Urine Bacteria Rare Ur Microscopic Review INDICATED Urine Culture Comments NOT INDICATED - Rads (name of study) CT A/P IVP Radiology: Prelim report reviewed, See rad report PD MEDICAL DECISION MAKING - ED course Complexity details: reviewed results, re-evaluated patient, considered differential, d/w patient ED course: symptoms are s/o UTI although UA reveals hematuria but no WBC and only rare bacteria. unremarkable blood tests and no concerning findings on CT IVP (specifically, no evidence of mass, kidney stones). He has frequent urination during ED stay, at times having to use BR while being evaluated as well as on reevaluation. The urine he produces into bedside urinal does not appear to be grossly bloody to me. Although UA is only positive for blood (and few bacteria), his symptoms are strongly s/o UTI and I recommended antibiotic, which he agrees with (given macrobid in ED and rx provided). I reviewed the test results w/ patient and advised him to f/u with PMD for possible urology referral and possible further testing at PMD/urology discretion Departure - Departure Disposition: 01 Home, Self Care Clinical Impression: Hematuria Qualifiers: Hematuria type: gross Qualified Code(s): R31.0 - Gross hematuria Condition: Good Instructions: ED Hematuria Follow-Up: Ascencion Espinal MD [Primary Care Provider] - Prescriptions: Nitrofurantoin [Macrobid] 100 mg PO BID #9 cap Comments: Your urinalysis was positive for blood but otherwise unremarkable; there are no other concerning findings on tonight's other tests including blood tests and the CT scan of your abdomen/pelvis. The CT did not show any evidence of a tumor nor kidney stones. The cause of your hematuria (blood in the urine) is not apparent at this time. Although the urinalysis is not suggestive of a urinary tract infection, your symptoms are and thus you are being given an antibiotic in the ER with a prescription electronically submitted to [facility] in [place] (they are open today, 05/05/22). You should follow up with your primary care provider even if the symptoms resolve; further testing or referral to urology is at the discretion of your primary care provider. Discharge Date/Time: 05/05/22 03:38
[2022-05-05 00:07] LABS: BILIRUBIN,URINE NEGATIVE (NEGATIVE); GLUCOSE, URINE (UA) >=1000 mg/dL (NEGATIVE); KETONES,URINE (UA) NEGATIVE (NEGATIVE); LEUKOCYTE ESTERASE, URINE NEGATIVE (NEGATIVE); NITRITE,URINE NEGATIVE (NEGATIVE); OCCULT BLOOD,URINE LARGE (NEGATIVE); PH,URINE 5.5 PH (5.0-7.5); PROTEIN,URINE 30 mg/dL (NEGATIVE); UROBILINOGEN,URINE 0.2 (NORMAL) E.U./dL (NORMAL)
[2022-05-05 00:08] LABS: CLARITY,URINE CLOUDY (CLEAR); RBC,URINE TNTC /HPF (0-5); WBC,URINE 0-3 /HPF (0-3)
[2022-05-05 00:09] LABS: BACTERIA,URINE Rare /HPF (None Seen); SQUAMOUS EPITHELIAL CELL,UR NONE SEEN (<= Few)
[2022-05-05 00:41] LABS: HCT - HEMATOCRIT 44.5 % (42.0-52.0); MEAN CORPUSCULAR VOLUME 89.5 fL (80.0-94.0); RED BLOOD COUNT 4.97 10^6/uL (4.70-6.10)
[2022-05-05 00:44] LABS: BASOPHILS % (AUTO) 0.2 %; EOSINOPHILS # (AUTO) 0.1 10^3/uL (0.0-0.7); EOSINOPHILS % (AUTO) 1.1 %; LYMPHOCYTES # (AUTO) 1.6 10^3/uL (1.5-3.5); LYMPHOCYTES % (AUTO) 14.9 %; MEAN CORPUSCULAR HEMOGLOBIN 30.2 pg (27.0-31.0); MEAN CORPUSCULAR HGB CONC 33.7 g/dL (32.0-36.0); MEAN PLATELET VOLUME 9.6 fL (7.4-11.4); MONOCYTES # (AUTO) 0.8 10^3/uL (0.0-1.0); MONOCYTES % (AUTO) 7.7 %; NEUTROPHILS % (AUTO) 75.7 %; PLT - PLATELET COUNT 174 10^3/uL (130-450); WHITE BLOOD COUNT 10.6 x10^3/uL (4.8-10.8)
[2022-05-05 00:50] LABS: POTASSIUM 3.8 mmol/L (3.5-5.0)
[2022-05-05] MEDS ORDERED: NITROFURANTOIN MACRO 100 MG CAPSULE PO STA (03:19)
[2022-05-05 03:38] VITALS: BP 133/62
--- NOTE | 2022-05-05 08:31 | CT Report ---
PROCEDURE: IVP INDICATIONS: painless hematuria CONTRAST: IV CONTRAST: Optiray 320 ml: 140 PO CONTRAST: *NO PO CONTRAST TECHNIQUE: After the administration of oral and intravenous contrast, 5 mm thick sections acquired from the diap hragms to the symphysis. 5 mm thick coronal and sagittal reformats were acquired. For radiation dos e reduction, the following was used: automated exposure control, adjustment of mA and/or kV accordin g to patient size. COMPARISON: Correlation is made with prior abdominal ultrasound, 01/07/2020. Correlation is also made with overlapping portions of prior chest CT, 10/04/2020 FINDINGS: Image quality: Excellent. Lung bases: Lung bases are clear. Heart size is normal. There is a small to moderate hiatal hernia . Urinary system: Both kidneys are normal in size and enhancement. Contrast-filled renal calyces are normal in morphology. Contrast filled portions of both ureters are normal in caliber. The bladder wall is mildly trabeculated, yet without significant bladder diverticula seen. No bladder masses are seen. Solid organs: Liver and spleen are normal in size and enhancement. Gallbladder wall does not appear thickened. Biliary system is non dilated. Pancreas enhances normally. No adrenal nodules. Peritoneum and bowel: Bowel loops demonstrate normal wall thickness and caliber. No free fluid or a ir. Diverticulosis can be seen, without carroll findings of active diverticulitis. There is a moderate amount of stool seen within the colon. Nodes and vessels: No retroperitoneal or mesenteric adenopathy by size criteria. Aorta and inferior vena cava are normal in size. Atherosclerotic calcification is seen. Abdominal wall: No ventral hernias. Pelvis: No pathologic free pelvic fluid. No inguinal adenopathy. There are bilateral fat-containin g inguinal hernias. The prostate is mildly prominent, measuring 5.3 cm. Bones: No suspicious bony lesions. No vertebral body compression fractures. Age-appropriate degene rative changes are seen. IMPRESSION: A cause of painless hematuria is not seen. No kidney stones or renal masses are seen. No ureteral lesions or bladder masses are seen. A mildly trabeculated bladder is seen, yet without carroll diverticula. The prostate is mildly enlarged . Bladder outlet obstruction is suspected. There is a moderate amount of stool seen within the colon. Please correlate with clinical constipatio n. Incidental note is made of: Small to moderate hiatal hernia Diverticulosis, without findings of active diverticulitis. Bilateral fat-containing inguinal hernias Note: No significant discrepancy from the preliminary report. Reviewed by: Valente Naranjo MD on 05/05/2022 7:29 AM SCAR Approved by: Valente Naranjo MD on 05/05/2022 7:29 AM SCAR Station ID: [id number]
== END 2022-05-05 03:38 | disposition home or self-care (01) ==
LOC: ED 23:43
DX: R31.0 Gross hematuria (principal); I10 Essential (primary) hypertension; E11.9 Type 2 diabetes mellitus without complications; Z79.84 Long term (current) use of oral hypoglycemic drugs; I48.91 Unspecified atrial fibrillation
CPT/HCPCS: 36415; 74178; 80048; 81001; 85025; 99283; 99284; A9270; Q9967; 81003; 87086

== ENCOUNTER 2022-05-09 14:39 | Outpatient (CLI) | payer MEDICARE | END 2022-05-09 14:40 | disposition home or self-care (01) | LOC: LAB.N 14:39 | PROVIDERS: ATTEND Family Medicine | DX: R39.15 Urgency of urination (principal); R31.9 Hematuria, unspecified | CPT/HCPCS: 36415; 84153 ==

== ENCOUNTER 2022-08-14 10:34 | Outpatient (CLI) | payer MEDICARE ==
--- NOTE | 2022-08-14 13:14 | XRAY Report ---
PROCEDURE: Foot 3 View LT INDICATIONS: LT FOOT PAIN TECHNIQUE: 3 views of the foot were acquired. COMPARISON: None FINDINGS: Bones: No fractures or dislocations. No suspicious bony lesions. There is some mild to moderate osteoarthritic degenerative change involving the right first metatarsa l phalangeal joint. A calcaneal spur heel spur is noted insertion of the plantar fascia. Soft tissues: No tibiotalar joint effusion. Achilles tendon appears normal. IMPRESSION: 1. No evidence for acute osseous abnormality involving the patient's left foot. 2. Ndoy-as-vlhfwyyw osteoarthritic type degenerative change left first metatarsal phalangeal joint 3. Calcaneal heel spur at the insertion of the plantar fascia. Reviewed by: Eren Wong MD on 08/14/2022 1:12 PM PST Approved by: Eren Wong MD on 08/14/2022 1:12 PM PST Station ID: [id number]
== END 2022-08-14 10:35 | disposition home or self-care (01) ==
LOC: DI 10:34
PROVIDERS: ATTEND Podiatrist
DX: M19.072 Primary osteoarthritis, left ankle and foot (principal); M77.32 Calcaneal spur, left foot

== ENCOUNTER 2022-09-12 07:05 | Outpatient (CLI) | payer MEDICARE ==
[2022-09-12 12:31] LABS: CALCIUM 9.2 mg/dL (8.5-10.3); CREATININE 1.2 mg/dL (0.6-1.2)
[2022-09-12 12:42] LABS: ESTIMATED AVERAGE GLUCOSE 189 mg/dL (70-100); HEMOGLOBIN A1c% 8.2 % (4.27-6.07)
== END 2022-09-12 07:06 | disposition home or self-care (01) ==
LOC: LAB.N 07:05
PROVIDERS: ATTEND Family Medicine
DX: E11.8 Type 2 diabetes mellitus with unspecified complications (principal)
CPT/HCPCS: 36415; 80048; 83036

== ENCOUNTER 2022-12-16 07:05 | Outpatient (CLI) | payer MEDICARE ==
[2022-12-16 13:45] LABS: ESTIMATED AVERAGE GLUCOSE 171 mg/dL (70-100); HEMOGLOBIN A1c% 7.6 % (4.27-6.07)
[2022-12-16 14:05] LABS: CALCIUM 9.1 mg/dL (8.5-10.3); CREATININE 1.1 mg/dL (0.6-1.2); POTASSIUM 4.1 mmol/L (3.5-5.0)
[2022-12-16 15:06] LABS: CREATININE,URINE 80.7 mg/dL; MICROALBUM/CREATININE RATIO,UR 7.4 ug/mg (<30.0); MICROALBUMIN,URINE 0.6 mg/dL (0-300.0)
== END 2022-12-16 07:06 | disposition home or self-care (01) ==
LOC: LAB.N 07:05
PROVIDERS: ATTEND Family Medicine
DX: I10 Essential (primary) hypertension (principal); E11.8 Type 2 diabetes mellitus with unspecified complications
CPT/HCPCS: 36415; 80048; 82043; 82570; 83036

== ENCOUNTER 2023-02-11 15:22 | Outpatient (CLI) | payer MEDICARE ==
[2023-02-11 15:43] LABS: BILIRUBIN,URINE NEGATIVE (NEGATIVE); GLUCOSE, URINE (UA) >=1000 mg/dL (NEGATIVE); KETONES,URINE (UA) NEGATIVE (NEGATIVE); LEUKOCYTE ESTERASE, URINE NEGATIVE (NEGATIVE); NITRITE,URINE NEGATIVE (NEGATIVE); OCCULT BLOOD,URINE NEGATIVE (NEGATIVE); PROTEIN,URINE NEGATIVE (NEGATIVE); UROBILINOGEN,URINE 0.2 (NORMAL) E.U./dL (NORMAL)
[2023-02-11 15:51] LABS: BASOPHILS % (AUTO) 0.3 %; EOSINOPHILS # (AUTO) 0.2 10^3/uL (0.0-0.7); EOSINOPHILS % (AUTO) 2.3 %; HCT - HEMATOCRIT 49.4 % (42.0-52.0); HGB - HEMOGLOBIN 16.2 g/dL (14.0-18.0); LYMPHOCYTES # (AUTO) 2.3 10^3/uL (1.5-3.5); LYMPHOCYTES % (AUTO) 34.9 %; MEAN CORPUSCULAR HEMOGLOBIN 29.6 pg (27.0-31.0); MEAN CORPUSCULAR HGB CONC 32.8 g/dL (32.0-36.0); MEAN CORPUSCULAR VOLUME 90.3 fL (80.0-94.0); MEAN PLATELET VOLUME 9.6 fL (7.4-11.4); MONOCYTES # (AUTO) 0.5 10^3/uL (0.0-1.0); MONOCYTES % (AUTO) 7.7 %; NEUTROPHILS # (AUTO) 3.5 10^3/uL (1.5-6.6); NEUTROPHILS % (AUTO) 54.6 %; PLT - PLATELET COUNT 206 10^3/uL (130-450); RED BLOOD COUNT 5.47 10^6/uL (4.70-6.10); RED CELL DISTRIBUTION WIDTH 12.9 % (12.0-15.0); WHITE BLOOD COUNT 6.5 x10^3/uL (4.8-10.8)
[2023-02-11 15:57] LABS: ALBUMIN 4.3 g/dL (3.2-5.5); ALBUMIN/GLOBULIN RATIO 1.3 (1.0-2.2); BILIRUBIN,TOTAL 0.4 mg/dL (0.2-1.0); CALCIUM 8.9 mg/dL (8.5-10.3); CREATININE 1.2 mg/dL (0.6-1.2); TOTAL PROTEIN 7.5 g/dL (6.7-8.2)
[2023-02-11 15:58] LABS: BACTERIA,URINE None Seen /HPF (None Seen); CLARITY,URINE CLEAR (CLEAR); RBC,URINE None Seen /HPF (0-5); SQUAMOUS EPITHELIAL CELL,UR NONE SEEN (<= Few); WBC,URINE 0-3 /HPF (0-3)
== END 2023-02-11 15:23 | disposition home or self-care (01) ==
LOC: LAB 15:22
PROVIDERS: ATTEND Nurse Practitioner
DX: R10.9 Unspecified abdominal pain (principal); R19.7 Diarrhea, unspecified
CPT/HCPCS: 36415; 80053; 81001; 82150; 83690; 85025; 87086

== ENCOUNTER 2023-02-13 12:12 | Outpatient (CLI) | payer MEDICARE ==
[~2023-02-13 12:12] MED LIST: DIATR MEGLU/DIATRIZOATE SODIUM 120 ML BOTTLE ONE
[2023-02-13] MEDS ORDERED: iohexoL-300 100 ML VIAL ONE (13:23)
[2023-02-13] MEDS ORDERED: DIATRIZOATE MEGLU/DIATRIZO SOD 30 ML BOTTLE PO ONE (15:02)
[2023-02-13] MEDS ORDERED: iohexoL-300 100 ML VIAL IVP ONE (15:02)
--- NOTE | 2023-02-13 16:19 | CT Report ---
PROCEDURE: ABDOMEN/PELVIS W INDICATIONS: ABD PAIN CONTRAST: 100ml Omnipaque 300 TECHNIQUE: After the administration of oral and intravenous contrast, 5 mm thick sections acquired from the diap hragms to the symphysis. 5 mm thick coronal and sagittal reformats were acquired. For radiation dos e reduction, the following was used: automated exposure control, adjustment of mA and/or kV accordin g to patient size. COMPARISON: CT IVP 05/05/2022. FINDINGS: Image quality: Excellent. Lung bases and heart: No pleural effusion. Small hiatal hernia. Liver: No solid mass. Gallbladder and biliary tree: No radiopaque stones or wall thickening. No biliary dilation. Spleen: No splenomegaly. Pancreas: Unremarkable. Adrenals: No adrenal nodule. Kidneys and ureters: No hydronephrosis. No renal cystic lesion which requires follow up. No solid mas s. Bowel and peritoneum: No bowel distension. No pathologic free fluid. Diverticulosis. The appendix is partially visualized. Not distended. Lymph nodes: No central or retroperitoneal adenopathy. Vessels: No infrarenal aortic aneurysm. PELVIS Reproductive organs: Prominent prostate gland.. Bladder: No abnormal wall thickening, accounting for underdistention. Pelvic lymph nodes: No pelvic adenopathy by size criteria. Bones: No aggressive osseous abnormality. Other: Small bilateral inguinal hernias. No ventral hernia. IMPRESSION: No acute abnormality identified. Diverticulosis. No diverticulitis. No free fluid. Reviewed by: Yoshi Swanson MD on 02/13/2023 4:18 PM PDT Approved by: Yoshi Swanson MD on 02/13/2023 4:18 PM PDT Station ID: [id number]
== END 2023-02-13 12:13 | disposition home or self-care (01) ==
LOC: DI 12:12
PROVIDERS: ATTEND Nurse Practitioner
DX: R10.33 Periumbilical pain (principal); K57.90 Diverticulosis of intestine, part unspecified, without perforation or abscess without bleeding
CPT/HCPCS: 74177; Q9963; Q9967

== ENCOUNTER 2023-03-20 07:05 | Outpatient (CLI) | payer MEDICARE ==
[2023-03-20 11:50] LABS: BASOPHILS % (AUTO) 0.6 %; EOSINOPHILS # (AUTO) 0.3 10^3/uL (0.0-0.7); EOSINOPHILS % (AUTO) 4.8 %; HCT - HEMATOCRIT 48.1 % (42.0-52.0); HGB - HEMOGLOBIN 15.9 g/dL (14.0-18.0); LYMPHOCYTES # (AUTO) 2.1 10^3/uL (1.5-3.5); LYMPHOCYTES % (AUTO) 31.9 %; MEAN CORPUSCULAR HGB CONC 33.1 g/dL (32.0-36.0); MEAN CORPUSCULAR VOLUME 90.8 fL (80.0-94.0); MEAN PLATELET VOLUME 10.6 fL (7.4-11.4); MONOCYTES # (AUTO) 0.5 10^3/uL (0.0-1.0); MONOCYTES % (AUTO) 7.6 %; NEUTROPHILS # (AUTO) 3.6 10^3/uL (1.5-6.6); NEUTROPHILS % (AUTO) 54.9 %; PLT - PLATELET COUNT 222 10^3/uL (130-450); RED CELL DISTRIBUTION WIDTH 12.8 % (12.0-15.0); WHITE BLOOD COUNT 6.5 x10^3/uL (4.8-10.8)
[2023-03-20 12:49] LABS: THYROID STIMULATING HORMONE 1.69 uIU/mL (0.34-5.60)
[2023-03-20 13:15] LABS: ESTIMATED AVERAGE GLUCOSE 200 mg/dL (70-100); HEMOGLOBIN A1c% 8.6 % (4.27-6.07)
[2023-03-20 13:24] LABS: ALBUMIN 4.3 g/dL (3.2-5.5); ALBUMIN/GLOBULIN RATIO 1.3 (1.0-2.2); ALKALINE PHOSPHATASE 62 IU/L (42-121); ALT ALANINE AMINOTRANSFERASE 16 IU/L (10-60); AST ASPARTATE AMINOTRANSFERASE 18 IU/L (10-42); BILIRUBIN,TOTAL 0.9 mg/dL (0.2-1.0); BUN - BLOOD UREA NITROGEN 30 mg/dL (6-20); CALCIUM 9.2 mg/dL (8.5-10.3); CARBON DIOXIDE - CO2 28 mmol/L (21-32); CHLORIDE 103 mmol/L (101-111); CHOLESTEROL 154 mg/dL; CREATININE 1.1 mg/dL (0.6-1.2); GFR - MDRD 64 (>89); GLUCOSE 200 mg/dL (70-100); HDL CHOLESTEROL 51 mg/dL; LDL CHOLESTEROL,CALCULATED 81 mg/dL; LDL/HDL RATIO 1.6 (<3.6); SODIUM 137 mmol/L (135-145); TOTAL PROTEIN 7.6 g/dL (6.7-8.2); TRIGLYCERIDES 110 mg/dL; VLDL CHOLESTEROL 22 mg/dL
== END 2023-03-20 07:06 | disposition home or self-care (01) ==
LOC: LAB.N 07:05
PROVIDERS: ATTEND Family Medicine
DX: I10 Essential (primary) hypertension (principal); I25.10 Atherosclerotic heart disease of native coronary artery without angina pectoris; N40.0 Benign prostatic hyperplasia without lower urinary tract symptoms; M17.12 Unilateral primary osteoarthritis, left knee; E83.42 Hypomagnesemia; E87.6 Hypokalemia; D64.9 Anemia, unspecified; E11.65 Type 2 diabetes mellitus with hyperglycemia
CPT/HCPCS: 36415; 80053; 80061; 83036; 83721; 84153; 84443; 85025

== ENCOUNTER 2023-07-30 07:04 | Outpatient (CLI) | payer MEDICARE ==
[2023-07-30 12:32] LABS: CALCIUM 9.2 mg/dL (8.5-10.3); CREATININE 1.1 mg/dL (0.6-1.3); POTASSIUM 4.5 mmol/L (3.5-4.5)
[2023-07-30 12:37] LABS: ESTIMATED AVERAGE GLUCOSE 217 mg/dL (70-100); HEMOGLOBIN A1c% 9.2 % (4.27-6.07)
== END 2023-07-30 07:05 | disposition home or self-care (01) ==
LOC: LAB.N 07:04
PROVIDERS: ATTEND Family Medicine
DX: E11.8 Type 2 diabetes mellitus with unspecified complications (principal)
CPT/HCPCS: 36415; 80048; 83036

== ENCOUNTER 2023-09-28 02:19 | Emergency (ER) | payer MEDICARE ==
--- NOTE | 2023-09-28 04:40 | ED Physician Documentation ---
History of Present Illness - Stated complaint Stated Complaint: ALLERGIC REACTION/SOA - Chief complaint Chief Complaint: General - History obtained from History obtained from: Patient - Additonal information Additional information: HPI from patient. Patient is concerned he may be having "an allergic reaction" (per patient) to nasal sprays which he has been using for sinus congestion for several years. He has been using oxymetazoline nasal spray as well as phenylephrine nasal spray, both a few times per day every day for many years. He says he is seeing an ENT for this issue including recent office visit. He says he was recently prescribed a prednisone taper to help with rebound congestion that is anticipated to be result of stopping these nasal sprays. He says the ENT also advised him of one strategy which is to use one nasal spray in only one nare for several days before trying to then stop "cold turkey" (per patient). Patient has been having his usual nasal congestion, but also bilateral red and itchy eyes and sensation of both ears "clogged" (per patient) but without pain, which are the symptoms making him think he is having an allergic reaction due to prolonged use of the nasal sprays. PD PAST MEDICAL HISTORY - Past Medical History Cardiovascular: Hypertension, High cholesterol, Coronary artery disease, Atrial fibrillation Endocrine/Autoimmune: Type 2 diabetes GI: GERD HEENT: Chronic hearing loss Musculoskeletal: Osteoarthritis, Other - Past Surgical History Past Surgical History: Yes Ortho: Carpal Tunnel surgery Cardiovascular: Coronary stent Neuro: Other - Present Medications Home Medications: Ambulatory Orders Medication Instructions Recorded Confirmed Aspirin [Aspir 81] 81 mg PO DAILY 03/14/14 09/28/23 Metformin HCl 1,000 mg PO BID 03/14/14 09/28/23 Rosuvastatin Calcium [Crestor] 5 mg PO QPM 03/14/14 09/28/23 Glimepiride 4 mg PO BID 05/10/18 09/28/23 Flaxseed Oil 1,000 mg PO DAILY 11/06/18 09/28/23 Metoprolol Tartrate 25 mg PO BID 11/06/18 09/28/23 Multivitamin [Theragran] 1 each PO DAILY 11/06/18 09/28/23 Loratadine [Claritin] 10 mg PO DAILY 10/03/20 09/28/23 Propylhexedrine [Benzedrex] 1 inh ALEN PRN PRN 10/03/20 09/28/23 Amlodipine Besylate [Norvasc] 2.5 mg PO DAILY 09/28/23 09/28/23 Empagliflozin [Jardiance] 25 mg PO DAILY 09/28/23 09/28/23 Nitroglycerin [Nitrostat] 0.4 mg SL [id number] 09/28/23 09/28/23 Omeprazole 40 mg PO DAILY 09/28/23 09/28/23 - Allergies Allergies/Adverse Reactions: Allergies Allergy/AdvReac Type Severity Reaction Status Date / Time JT Inhibitors Allergy Severe Unknown Verified 09/28/23 02:26 clavulanic acid Allergy Severe Unknown Verified 09/28/23 02:26 [From Augmentin] citalopram Allergy Intermediate Unknown Verified 09/28/23 02:26 erythromycin base Allergy Intermediate Edema Verified 09/28/23 02:26 [Erythromycin Base] hydrochlorothiazide Allergy Mild Unknown Verified 09/28/23 02:26 Twmbhdz-WWC-DcI Reductase Allergy Mild Unknown Verified 09/28/23 02:26 Inhibitor [Kxeinpy-Udv-Ygy Reductase Inhibitor] Sulfa (Sulfonamide Allergy Mild Nausea Verified 09/28/23 02:26 Antibiotics) chlortetracycline Allergy Unknown Verified 09/28/23 04:05 Macrolide Antibiotics Allergy Unknown Verified 09/28/23 04:05 jane Allergy Unknown Verified 09/28/23 02:26 streptomycin Allergy Unknown Verified 09/28/23 04:05 amoxicillin [From Augmentin] AdvReac Severe Anxiety Verified 09/28/23 02:26 myacin Allergy Unknown Uncoded 09/28/23 02:26 scotch broom Allergy Unknown Uncoded 09/28/23 02:26 - Social History Does the pt smoke?: No Smoking Status: Never smoker Does the pt drink ETOH?: No Does the pt have substance abuse?: No - Immunizations Immunizations are current?: No Immunizations: TDAP >10years/unknown - POLST Patient has POLST: Yes PD ED PE NORMAL - Vitals Vital signs reviewed: Yes - General General: Alert and oriented X 3, No acute distress, Well developed/nourished - HEENT HEENT: PERRL, EOMI, Ears normal, Moist mucous membranes, Pharynx benign, Other (no conjunctival injection) - Cardiac Cardiac: RRR - Respiratory Respiratory: No respiratory distress, Clear bilaterally Results - Vitals Vitals: Oxygen O2 Source Room air PD Medical Decision Making - ED course Complexity details: reviewed results, re-evaluated patient, considered differential, d/w patient ED course: Presents with overuse/misuse/abuse of two different nasal sprays (oxymetazoline, phenylephrine). He has been using these for years. After years of daily use of these medication (several times per day), it is very unlikely he has developed an allergic reaction to these medications. More likely is that he has developed tachyphylaxis, result of upregulation of receptors involved in these medications' effects such that he needs increasingly frequent use just to have moderate symptoms (versus [id number] if he had used as directed). I recommended an antihistamine but he is already taking claritin daily. Recommended steroid, such as prednisone, but he already has a taper of this prescribed by his ENT. I recommended flonase, but he says he has used this medication in the past for this problem without any improvement. I have no other ideas as to how to decrease the symptoms he is likely to have with cessation of use except to immediately start the steroid as precribed, taper as per prescription, but also to follow up with ENT before taper has completed. Departure - Departure Disposition: 01 Home, Self Care Clinical Impression: Nasal spray abuse Condition: Good Instructions: ED Sinusitis No Abx Comments: You are being provided with instructions on sinusitis but, as we discussed, this is not the diagnosis in your particular case (but the instructions are the closest approximation to your signs/symptoms and what symptoms you should look out for that would indicate need to return to the ER). I do not think sinusitis is causing your symptoms. Rather, it is probably a result of the exceedingly prolonged use of the nasal sprays. You have indicated that your ENT physician has prescribed prednisone (steroid); I recommend that you start this medication as soon as you get home and follow the taper instructions as per the prescription label. Try your best to stop using both of the nasal sprays. If this proves to be too difficult, you can also consider following your ENT's recommendations to only spray into one nostril for a few days and then stop completely. Forms: PCP List Discharge Date/Time: 09/28/23 05:30
[2023-09-28 05:40] VITALS: BP 177/79; O2SAT 98
== END 2023-09-28 05:30 | disposition home or self-care (01) ==
LOC: ED 02:19
DX: R09.81 Nasal congestion (principal); T48.5X5A Adverse effect of other anti-common-cold drugs, initial encounter; T44.4X5A Adverse effect of predominantly alpha-adrenoreceptor agonists, initial encounter; I10 Essential (primary) hypertension; E11.9 Type 2 diabetes mellitus without complications; Z79.4 Long term (current) use of insulin; Z79.84 Long term (current) use of oral hypoglycemic drugs
CPT/HCPCS: 99281; 99283

== ENCOUNTER 2023-11-24 07:04 | Outpatient (CLI) | payer MEDICARE ==
[2023-11-24 12:20] LABS: CREATININE,URINE 68.7 mg/dL; MICROALBUM/CREATININE RATIO,UR 13.1 ug/mg (<30.0); MICROALBUMIN,URINE 0.9 mg/dL
[2023-11-24 12:21] LABS: CALCIUM 9.2 mg/dL (8.5-10.3); POTASSIUM 3.9 mmol/L (3.5-4.5)
[2023-11-24 12:35] LABS: ESTIMATED AVERAGE GLUCOSE 180 mg/dL (70-100); HEMOGLOBIN A1c% 7.9 % (4.27-6.07)
== END 2023-11-24 07:05 | disposition home or self-care (01) ==
LOC: LAB.N 07:04
PROVIDERS: ATTEND Family Medicine
DX: E11.8 Type 2 diabetes mellitus with unspecified complications (principal)
CPT/HCPCS: 36415; 80048; 82043; 82570; 83036

== ENCOUNTER 2024-03-10 15:30 | Outpatient (CLI) | payer MEDICARE ==
--- NOTE | 2024-03-10 20:05 | XRAY Report ---
PROCEDURE: Chest 2V INDICATIONS: ACUTE COVID-19 TECHNIQUE: 2 views of the chest were acquired. COMPARISON: None. FINDINGS: Surgical changes and devices: None. Lungs and pleura: No pleural effusions or pneumothorax. Lungs are clear. Mediastinum: Mediastinal contours appear normal. Heart size is normal. Coronary artery stent Bones and chest wall: No suspicious bony lesions. Overlying soft tissues appear unremarkable. IMPRESSION: No acute cardiopulmonary process. Reviewed by: Raman Hua MD on 03/10/2024 8:04 PM PDT Approved by: Raman Hua MD on 03/10/2024 8:04 PM PDT Station ID: [id number]
== END 2024-03-10 23:59 | disposition home or self-care (01) ==
LOC: DI.N 15:30
PROVIDERS: ATTEND Nurse Practitioner
DX: U07.1 COVID-19 (principal)

== ENCOUNTER 2024-05-11 07:05 | Outpatient (CLI) | payer MEDICARE ==
[2024-05-11 12:23] LABS: BASOPHILS % (AUTO) 0.7 %; EOSINOPHILS # (AUTO) 0.2 10^3/uL (0.0-0.7); EOSINOPHILS % (AUTO) 4.3 %; HCT - HEMATOCRIT 47.4 % (42.0-52.0); HGB - HEMOGLOBIN 15.4 g/dL (14.0-18.0); LYMPHOCYTES # (AUTO) 1.8 10^3/uL (1.5-3.5); LYMPHOCYTES % (AUTO) 32.1 %; MEAN CORPUSCULAR HEMOGLOBIN 29.5 pg (27.0-31.0); MEAN CORPUSCULAR HGB CONC 32.5 g/dL (32.0-36.0); MEAN CORPUSCULAR VOLUME 90.8 fL (80.0-94.0); MEAN PLATELET VOLUME 10.1 fL (7.4-11.4); MONOCYTES # (AUTO) 0.5 10^3/uL (0.0-1.0); MONOCYTES % (AUTO) 8.4 %; NEUTROPHILS % (AUTO) 54.3 %; PLT - PLATELET COUNT 186 10^3/uL (130-450); RED BLOOD COUNT 5.22 10^6/uL (4.70-6.10); RED CELL DISTRIBUTION WIDTH 12.9 % (12.0-15.0); WHITE BLOOD COUNT 5.6 x10^3/uL (4.8-10.8)
[2024-05-11 12:44] LABS: ALBUMIN 4.4 g/dL (3.2-5.5); ALBUMIN/GLOBULIN RATIO 1.6 (1.0-2.2); ALKALINE PHOSPHATASE 57 IU/L (42-121); ALT ALANINE AMINOTRANSFERASE 14 IU/L (10-60); AST ASPARTATE AMINOTRANSFERASE 16 IU/L (10-42); BILIRUBIN,TOTAL 0.6 mg/dL (0.2-1.0); BUN - BLOOD UREA NITROGEN 24 mg/dL (6-20); CARBON DIOXIDE - CO2 30 mmol/L (21-32); CHLORIDE 102 mmol/L (101-111); CHOL/HDL RATIO 2.5 (<5.0); CHOLESTEROL 136 mg/dL; CREATININE 1.1 mg/dL (0.6-1.3); GFR - MDRD 64 (>89); GLUCOSE 149 mg/dL (74-104); HDL CHOLESTEROL 54 mg/dL; LDL CHOLESTEROL,CALCULATED 58 mg/dL; LDL/HDL RATIO 1.1 (<3.6); SODIUM 138 mmol/L (135-145); TOTAL PROTEIN 7.1 g/dL (6.4-8.9); TRIGLYCERIDES 118 mg/dL; VLDL CHOLESTEROL 24 mg/dL
[2024-05-11 12:58] LABS: THYROID STIMULATING HORMONE 1.76 uIU/mL (0.34-5.60)
== END 2024-05-11 07:06 | disposition home or self-care (01) ==
LOC: LAB.N 07:05
PROVIDERS: ATTEND Family Medicine
DX: I10 Essential (primary) hypertension (principal); Z12.5 Encounter for screening for malignant neoplasm of prostate; H69.93 Unspecified Eustachian tube disorder, bilateral; E11.9 Type 2 diabetes mellitus without complications; I25.10 Atherosclerotic heart disease of native coronary artery without angina pectoris; E83.42 Hypomagnesemia; E87.6 Hypokalemia; D64.9 Anemia, unspecified; E78.5 Hyperlipidemia, unspecified; K21.9 Gastro-esophageal reflux disease without esophagitis
CPT/HCPCS: 36415; 80053; 80061; 84443; 85025; G0103; 83721; 84153